=== PATIENT | female | born 1970 | race Caucasian/White ===

== ENCOUNTER 2024-03-22 10:43 | Emergency (ER) | payer OTHER, SELFPAY ==
[2024-03-22 10:43] VITALS: BMI 40.5
[2024-03-22 10:53] VITALS: BP 116/70
[2024-03-22 11:22] LABS: % Basophils 0.5 % (0-2); % Eosinophils 0.8 % (0-6); % Immature Granulocytes 1.3 % (0-0.5); % Monocytes 4.8 % (1.7-9.3); % Neutrophils 81.6 % (42.2-75.2); Absolute Eosinophils 0.1 10^3/uL (0-0.7); Absolute Immature Granulocytes 0.1 10^3/uL (0-0.05); Absolute Lymphocytes 0.7 10^3/uL (1.2-3.4); Absolute Monocytes 0.3 10^3/uL (0.1-0.6); Hematocrit 33.8 % (37.0-47.0); Hemoglobin 11.5 g/dL (12.0-16.0); Mean Corpuscular Hgb 35.5 pg (27.0-31.0); Mean Corpuscular Volume 104.3 fL (81.0-99.0); Mean Platelet Volume 8.5 fL (7.4-10.4); Nucleated Red Blood Cells % 0 %; Platelet Count 217 10^3/uL (130-400); Red Blood Cell Count 3.24 10^6/uL (4.20-5.40); Red Cell Dist. Width 13.3 % (11.5-14.5); White Blood Cell Count 6.1 10^3/uL (4.8-10.8)
[2024-03-22 11:39] LABS: HCG, Serum Qualitative Screen Negative
[2024-03-22 11:44] LABS: NT-proBNP 539 pg/ml
[2024-03-22 11:45] LABS: Blood Urea Nitrogen 15 mg/dl (7-17); Calcium 9.2 mg/dl (8.4-10.2); Carbon Dioxide 29 mmol/L (22-30); Chloride 88 mmol/L (98-107); Glucose 97 mg/dl (70-99); Sodium 126 mmol/L (135-145); eGFR > 60.00
--- NOTE | 2024-03-22 11:47 | ED.GENMED ---
History of Present Illness
General
Chief Complaint: Swelling
Source: patient
Time Seen by Provider: 03/22/24 11:40
History of Present Illness
History of Present Illness:
53yoF with a history of coronary artery disease, CHF, hypertension, COPD, obesity presenting for evaluation of shortness of breath. Patient reports bilateral leg swelling, L>R, over the past week. She also is having shortness of breath primarily
with exertion. She is also endorses orthopnea. She reports heaviness in her chest but no overt pain. She is having difficulty completing her normal activities due to her dyspnea. No cough or fevers. Patient takes 40mg Lasix daily and reports
compliance with this.
Past History
Past History
ED Past Medical History: CHF, COPD, HTN, Psychiatric and Other (Migraine headaches, obstructive sleep apnea, alcohol use, left bundle branch block)
ED Past Surgical History: Other
Social History
Tobacco: Smoker
Alcohol: Daily
Drug: None
Personal: Single
Living: with family
Employment: Employed
Family History
Family History: Other
Phy Exam
General Physical Exam
General Presentation: well appearing and no apparent distress
General age: appears stated age
General Skin: warm and dry
General Habitus: normal
General Mental: alert
ENT Exam
ENT Exam: normocephalic
Cardiovascular Exam
Cardiovascular Exam: regular rate/rhythm, no murmur and other (Non-pitting edema in bilateral lower extremities, L>R, with chronic venous stasis changes)
Pulmonary Exam
Pulmonary Exam: lungs clear, no respiratory distress, no rales, no crackles and no rhonchi
Neurological Exam
Neurological Exam: alert
[place] Coma Scale
Eye Opening: Spontaneous
Verbal Response: Oriented
Motor Response: Obeys Commands
GCS Total Score: 15
Skin Exam
Skin Exam: normal color and warm/dry
Psychiatric Exam
Psychiatric Exam: normal mood/affect
Scores
Heart Failure Risk
Heart Failure Risk Score: Not Applicable
Course
Orders/Labs/Results
Orders:
Orders
03/22/24 10:57
Electrocardiogram (*1) Urgent
Reason for Study: Shortness of Breath
EKG- Treatment ONCE
03/22/24 10:59
Test Result ONCE
03/22/24 11:08
Basic Metabolic Panel Urgent
Complete Blood Count/With Diff Urgent
HCG, Serum Qualitative Screen Urgent
NT-proBNP Urgent
03/22/24 11:46
CR Chest - 2 Views Urgent
Comment:
Reason For Exam: SOB
Venous Doppler Lwr Ext Bilat [US Periph Venous LOWER Ext Bc] Urgent
Comment:
Reason For Exam: Bilateral leg swelling, L>R
03/22/24 11:51
LFT [Pksdb-Ietf-Mpmqnmg] Urgent
Potassium Urgent
03/22/24 14:[address] Non Medication Order As Directed
Physician Order: Ambulatory pulse ox
Above order entered?: Yes
03/22/24 14:09
Furosemide [Lasix] 40 mg IV NOW STA
Abnormal Lab Results
03/22/24 03/22/24
11:08 11:51
RBC 3.24 L 10^6/uL
(4.20-5.40)
Hgb 11.5 L g/dL
(12.0-16.0)
Hct 33.8 L %
(37.0-47.0)
MCV 104.3 H fL
(81.0-99.0)
MCH 35.5 H pg
(27.0-31.0)
Abs Immat Gran (auto) 0.1 H 10^3/uL
(0-0.05)
Absolute Lymphs (auto) 0.7 L 10^3/uL
(1.2-3.4)
Immature Gran % 1.3 H %
(0-0.5)
Neutrophils % 81.6 H %
(42.2-75.2)
Lymphocytes % 11.0 L %
(20.5-51.1)
Sodium 126 L mmol/L
(135-145)
Potassium 5.5 H mmol/L
(3.5-5.1)
Chloride 88 L mmol/L
(98-107)
AST 91 H U/L
(14-36)
ALT 67 H U/L
(0-35)
03/22/24 11:08
03/22/24 11:51
Vital Signs
Initial and Last Documented VS:
Initial Vital Signs
Temp Pulse Resp BP Pulse Ox
98.2 F 103 22 116/70 100
03/22/24 10:53 03/22/24 10:53 03/22/24 10:53 03/22/24 10:53 03/22/24 10:53
Last Documented Vital Signs
Temp Pulse Resp BP Pulse Ox
98.2 F 96 16 132/78 94
03/22/24 10:53 03/22/24 14:00 03/22/24 14:00 03/22/24 14:00 03/22/24 14:47
MDM/Problems Addressed
Differential Diagnosis Includes:
53yoF here with SOB and bilateral leg swelling x 1 week. Hx of COPD and CHF. She is afebrile and hemodynamically stable. Oxygen saturation 100% on room air. She is non-toxic appearing and no distress noted. There is non-pitting edema on exam.
No rales on lung exam. Differential diagnosis includes but is not limited to: CHF exacerbation, venous stasis, DVT
Initial ED plan: Check cardiac labs, EKG, bilateral venous duplex, and chest x-ray.
*EKG
Interpreted by ED Provider?: Yes
EKG Intrepretation Date: 03/22/24
Heart Rate: 82
Rate: normal
Rhythm: sinus
[place]: normal axis
QRS Pattern: left bundle branch block
Ischemia: no ischemia
*Critical Care Note
Total Time (30-74mins, 75-104mins- exclusive of procedures): Not Applicable
Update Note
Update Note:
EKG shows NSR with a LBBB which she has a history of. Troponin WNL. BNP mildly elevated at 539. Sodium 126. She has a history of chronic hyponatremia and sodium was as low as 119 last year. Potassium 5.5, renal function WNL. No obvious pulmonary
edema on CXR per my interpretation. Venous duplex negative for DVT. Offered admission which patient declines as she has to go to work tomorrow. 40mg IV Lasix given in ED and she was advised to increase her Lasix to 60mg for the next 3 days. Stressed
the importance of close outpatient f/u with PCP and cardiology as well as repeat blood work to monitor sodium levels. Strict ED return precautions discussed. She was discharged in stable condition.
ED Attending Note
-
Portions of this chart may have been created with voice recognition software.� Occasional wrong word or��sound alike� substitutions may have occurred due to the inherent limitations of voice recognition software.
Discharge Plan
Departure
Patient Disposition: Home (Routine Discharge)
Date of Disposition: 03/22/24
Time of Disposition: 15:49
Patient with high blood pressure during this ER visit?: No
Discharge Problem:
Shortness of breath, Bilateral leg edema
Instructions: *[facility] Heart Failure Instructions
Prescriptions:
No Action
lisinopril 20 MG tablet
20 mg PO DAILY
bupropion HCl 150 MG tablet sustained-release 12 hr
150 mg PO DAILY
lorazepam [Ativan] 0.5 mg Tablet
0.5 mg PO BID
Patient Comments:
10/03/2022: last filled 08/31/22, 60 tabs for 30 days from [facility][id number]
trazodone 150 mg tablet
150 mg PO HS
furosemide 40 mg tablet
40 mg PO DAILY
ipratropium-albuterol 0.5 mg-3 mg(2.5 mg base)/3 mL solution for nebulization
3 ml inhalation TID Qty: 90 0RF
albuterol sulfate [ProAir HFA] 90 mcg/actuation HFA aerosol inhaler
2 inh inhalation Q6H PRN (Reason: shortness of breath or wheezing) Qty: 6.7 0RF
metoprolol succinate 50 mg tablet extended release 24 hr
25 mg PO DAILY
prednisone 10 mg Tablet
See Rx Instructions .ROUTE .COMPLEX Qty: 30 0RF
Rx Instructions:
Take By Mouth:
40 mg daily x3 days, 30 mg daily x3 days,
20 mg daily x3 days, 10 mg daily x3 days.
Referrals:
Kenneth Freeman MD [Family Provider] -
Stand Alone Forms: Return to Work
Activity Restrictions/Additional Instructions:
Increase your Lasix to 60mg daily for the next 3 days.
Please call your family doctor and client application support specialist on Sunday. You will need repeat blood work in 3-4 days to monitor your electrolyte levels.
Return to the ER immediately with any new or worsening symptoms.
Interventions
Interventions:
*Risk Screen - Suicide Last Done: 03/22/24 10:53
*General Assessment Last Done: 03/22/24 10:53
*Neglect/Abuse Screening Last Done: 03/22/24 10:53
ED- Fall Risk Assessment Last Done: 03/22/24 11:46
*ED COVID-19 Vaccine History Last Done: 03/22/24 11:46
*Nursing Disposition Last Done: 03/22/24 15:59
ED- Cardiac Assessment Last Done: 03/22/24 11:46
ED- Pulmonary Assessment Last Done: 03/22/24 11:46
ED-Skin Assessment Last Done: 03/22/24 11:46
Discharge Date and Time
Discharge Date/Time: 03/22/24 16:06
Print Language: PERSIAN
[2024-03-22 12:00] VITALS: BP 115/69
[2024-03-22 12:28] LABS: ALT (SGPT) 67 U/L (0-35); AST (SGOT) 91 U/L (14-36); Albumin 4.4 g/dl (3.5-5.0); Alkaline Phosphatase 97 U/L (38-126); Direct Bilirubin 0.4 mg/dl (0.0-0.4); Potassium 5.5 mmol/L (3.5-5.1); Total Bilirubin 0.8 mg/dl (0.2-1.3); Total Protein 6.8 g/dl (6.3-8.2)
[2024-03-22 14:00] VITALS: BP 132/78
[2024-03-22] MEDS: LASIX 40 MG IV (14:20)
--- NOTE | 2024-03-22 14:48 | EDRN ---
Pt with 94% ambulatory pulse ox.
== END 2024-03-22 16:06 | disposition home or self-care (01) ==
LOC: EMR 10:43
PROVIDERS: Physician Assistant; EMERGENCY PHYSICIAN Emergency Medicine; FAMILY PHYSICIAN Family Medicine
DX: I11.0 Hypertensive heart disease with heart failure (principal); I50.9 Heart failure, unspecified; R60.0 Localized edema; G47.33 Obstructive sleep apnea (adult) (pediatric); J44.9 Chronic obstructive pulmonary disease, unspecified; F17.200 Nicotine dependence, unspecified, uncomplicated; Z79.899 Other long term (current) drug therapy
CPT/HCPCS: 96374; 99285; 71046; 80048; 80076; 83880; 84132; 84703; 85025; 93005; 93970

== ENCOUNTER 2024-03-25 19:56 | Observation (INO) | payer OTHER, SELFPAY ==
[2024-03-25] VITALS (9 sets, daily range): BP systolic 92–123; BP diastolic 57–76; PULSE 101–113; BMI 39.2
--- NOTE | 2024-03-25 13:04 | ED.GENMED ---
ED Provider Triage
<ROSMERY Carroll - Last Filed: 03/25/24 13:09>
-
Patient seen by provider in Triage?: Seen in Triage
Attestation: A medical screening examination has been initiated by a qualified medical provider. Based on the assessment performed at this time, it has been determined that an emergent medical condition may exist and the patient has been informed
that further medical evaluation and possible additional diagnostic testing may be needed.
HPI: 53 yr old female presents to the ED c/o of dizziness. Pt reports she fell at work yesterday because of the dizziness. Her BP yesterday when this occurred was low at 73/ 63.Pt reports today she continues to feel dizzy when she gets up and
walks around. Pt has hx of elevated blood pressure and is on BP meds.
Denies chest pain however is SOB when walking.
Pt reports she was here several days ago for SOB/leg swelling. her meds were not changed.
GENERAL: Alert , in no apparent distress
EYE: No visual abnormalities.
NECK: Trachea midline
ENT: No visible abnormalities.
LUNGS: No acute respiratory distress
NEUROLOGICAL: Alert and oriented
SKIN: Skin intact. No visible changes.
MUSCULOSKELETAL: Moving extremities normally
PSYCH: Normal and appropriate interaction.
This is a medical evaluation conducted in person to initiate diagnostic evaluation and provide initial therapeutics. Please see further documentation by the treating clinician.
History of Present Illness
<ROSMERY Carroll - Last Filed: 03/25/24 13:09>
General
Chief Complaint: Blood Pressure Problem
Time Seen by Provider: 03/25/24 16:51
<Rosaline Castillo NP - Last Filed: 03/26/24 20:05>
General
Source: patient
Exam Limitations: none
Nursing documentation reviewed up to this point in time: agreed with
History of Present Illness
History of Present Illness:
53-year-old female with history of coronary artery disease, CHF, hypertension, COPD, obesity, anemia, states yesterday 1 p.m. at work at [employer] in [facility], developed weakness in her knees, had pain in both legs, felt faint and fell onto
carts, witnessed by coworkers who she remembers helped her up and to a chair. States her BP at that time was 60/. She went home where she lives alone and says she was able to get to the bathroom and kitchen for meals as usual. She has HAMMER which she
states is normal for her with COPD.
Seen here on 03/22 for SOB, bilateral LE swelling had US neg for DVT,
Past History
<ROSMERY Carroll - Last Filed: 03/25/24 13:09>
Past History
ED Past Medical History: CHF, COPD, HTN, Psychiatric and Other (Migraine headaches, obstructive sleep apnea, alcohol use, left bundle branch block)
ED Past Surgical History: Other
Social History
Tobacco: Smoker
Alcohol: Daily
Drug: None
Personal: Single
Living: with family
Employment: Employed
Family History
Family History: Other
Review of Systems
<Rosaline Castillo PATROL MOTHER - Last Filed: 03/26/24 20:05>
Review of Systems
Allergies reviewed?: Yes
All Other Systems: ROS reviewed and negative except as documented in HPI and ROS
Constitutional: Reports fatigue; Denies fever
Respiratory: Reports trouble breathing (chronic); Denies cough
Cardiac: Reports other (near syncope yesterday); Denies chest pain
ABD/GI: Denies abdominal pain, nausea, vomiting, diarrhea or constipated
: Denies dysuria, frequency or difficulty voiding
Musculoskeletal: Reports edema (bilateral lower legs)
Skin: Reports other (red, swollen, painful lower legs.)
Neurological: Denies headache
Phy Exam
<Rosaline Castillo PATROL MOTHER - Last Filed: 03/26/24 20:05>
Physical Exam
Physical Exam:
GENERAL: No acute distress. A&Ox3.
CONSTITUTIONAL: Afebrile.
EYES: clear, conjunctivae normal
ENMT: moist mucus membranes, Pharynx nl
RESPIRATORY: Regular respirations, nonlabored, lungs clear.
CARDIOVASCULAR: Regular rate and rhythm, no murmurs, no rubs.
GI: Obese, Soft, nontender, normal BS
Rectal: stool light brown, heme neg
MUSCULOSKELETAL: Moves with ease. Well perfused.
SKIN: Warm, dry, pink. Bilateral lower legs reddened, warm, swollen, tender
PSYCH: Normal mood and affect. Well kept, interactive and appropriate
NEUROLOGIC: Awake, alert and oriented. No focal neurological deficits
Course
<ROMSERY Carroll - Last Filed: 03/25/24 13:09>
Orders/Labs/Results
Orders:
Orders
03/25/24 Breakfast
Regular
At Your Request: Full Participation
Fluid Restriction: 1200 mL/day (40 oz)
03/25/24 13:09
Electrocardiogram (*1) Stat
Reason for Study: Other
Other Reason for Exam: chest pain
EKG- Treatment ONCE
03/25/24 13:20
Complete Blood Count/With Diff Urgent
Comprehensive Metabolic Panel Urgent
Glycohemoglobin (HgbA1c) Urgent
NT-proBNP Urgent
Comment: ADD ON
03/25/24 17:41
Orthostatic VS- Treatment ONCE
03/25/24 17:54
Add On- LAB Urgent
Tests Added?: BNP
03/25/24 18:34
Piperacillin/Tazo 3.375 Gram [Zosyn] 3.375 gram in 50 ml IV NOW
03/25/24 18:51
0.9% Sodium Chloride 500 ml [Nss] 500 ml IV BOLUS
03/25/24 19:40
Admit/Transfer Patient As Directed
Co-Sign Provider:
Level of Care: Observation services
Assign to:: Telemetry
Physician / Group: Juvenal
Diagnosis: Cardiomyopathy, Venous Insufficiency / LE Pain
Reason for Telemetry: Subacute Heart Failure
Date to Stop Telemetry: 03/27/24
Time to Stop Telemetry: 11:00
Reason for Hospitalization: Cardiomyopathy, Venous Insufficiency / LE Pain
PRN Pain Medication Management As Directed
May give lesser potent ordered pain med per pt: Yes
preference::
Protocol:: Medication orders for pain may be administered in a
manner that supports deferring to patient preference
when the pt is:
- Requesting an ordered lesser potent pain medication.
Least to most potent pain medications are defined
as: acetaminophen < NSAID < tramadol < opioids
(morphine, oxycodone, hydromorphone).
- Requesting a lesser dose of the same medication IF
ORDERED.
- Requesting a less intrusive route of administration
if both routes are prescribed by the provider (PO <
IV).
03/25/24 19:42
Code Status As Directed
Resuscitation Status: Full Code
03/25/24 20:25
Lorazepam [Ativan] 0.5 mg PO BIDPRN PRN
03/25/24 21:09
Acetaminophen [Tylenol] 650 mg PO Q4HPRN PRN
Albuterol Nebs [Ventolin Nebules] 2.5 mg INH R Q4HPRN PRN
03/25/24 21:09
Activity As Directed
Activity Level: Ambulate
With Assistance
Bladder Scan As Directed
Follow Bladder Retention/Intermittent Cath Algorithm?: Yes
PRN if no void in __ hours: 6
Frequency: Per Retention Algorithm
If Bladder Scan Result >: 400
then:: Straight cath
I/O [Intake/ Output] As Directed
Frequency: Per unit guidelines
Straight Cath As Directed
Frequency: Per Retention Algorithm
Additional Instructions: straight cath as needed per acute urinary retention algorithm for 24 hrs
Additional Instructions: for bladder scan greater than 400 mL
Vital Signs As Directed
Frequency: Per unit guidelines
Weight As Directed
Frequency: Daily
Oxygen Therapy [O2 Therapy] [RESP] Routine
Titrate/Wean O2 to maintain O2 sat greater than (%): 94
Ot Eval And Treat Routine
PT Consult [Pt Eval And Treat] Routine
Activity Level: Ambulate
With Assistance
DX Deep Vein Thrombosis Video Routine
03/25/24 22:00
ARIPiprazole [Abilify] 5 mg PO HS
Gabapentin [Neurontin] 100 mg PO TID
Trazodone [Desyrel] 150 mg PO HS
03/25/24 22:59
B12 [Vitamin B12] Routine
Iron Routine
TSH Reflex To Free T4 Routine
Total Iron Binding Routine
Troponin I Q6H
03/26/24 03:12
Troponin I Q6H
03/26/24 06:00
EKG [Electrocardiogram (*1)] IN AM
Reason for Study: Chest Pain
03/26/24 08:00
Bupropion(12Hr)Sustain Release [WELLBUTRIN SR (12 hour sustained release)] 150 mg PO DAILY
Metoprolol Xl [Toprol Xl] 25 mg PO DAILY
03/26/24 12:37
Basic Metabolic Panel IN AM
Cardiovascular Evaluation IN AM
Troponin I Q6H
03/26/24 18:00
Enoxaparin Sodium [Lovenox] 40 mg SC QPM
03/27/24 11:00
DC Protocol for Telemetry ONCE
Abnormal Lab Results
03/25/24
13:20
RBC 2.89 L 10^6/uL
(4.20-5.40)
Hgb 10.3 L g/dL
(12.0-16.0)
Hct 30.1 L %
(37.0-47.0)
MCV 104.2 H fL
(81.0-99.0)
MCH 35.6 H pg
(27.0-31.0)
Abs Immat Gran (auto) 0.1 H 10^3/uL
(0-0.05)
Absolute Lymphs (auto) 1.1 L 10^3/uL
(1.2-3.4)
Immature Gran % 1.3 H %
(0-0.5)
Lymphocytes % 18.1 L %
(20.5-51.1)
Sodium 128 L mmol/L
(135-145)
Potassium 5.2 H mmol/L
(3.5-5.1)
Chloride 91 L mmol/L
(98-107)
BUN 20 H mg/dl
(7-17)
Glucose 100 H mg/dl
(70-99)
AST 84 H U/L
(14-36)
ALT 70 H U/L
(0-35)
03/25/24 13:20
03/25/24 13:20
Vital Signs
Initial and Last Documented VS:
Initial Vital Signs
Temp Pulse Resp BP Pulse Ox
98.6 F 85 18 100/66 99
03/25/24 13:05 03/25/24 13:05 03/25/24 13:05 03/25/24 13:05 03/25/24 13:05
Last Documented Vital Signs
Temp Pulse Resp BP Pulse Ox
98.6 F 84 18 93/58 96
03/26/24 19:40 03/26/24 19:40 03/26/24 19:40 03/26/24 19:40 03/26/24 19:40
<Rosaline Castillo NP - Last Filed: 03/26/24 20:05>
Orders/Labs/Results
Orders:
Orders
03/25/24 Breakfast
Regular
At Your Request: Full Participation
Fluid Restriction: 1200 mL/day (40 oz)
03/25/24 13:09
Electrocardiogram (*1) Stat
Reason for Study: Other
Other Reason for Exam: chest pain
EKG- Treatment ONCE
03/25/24 13:20
Complete Blood Count/With Diff Urgent
Comprehensive Metabolic Panel Urgent
Glycohemoglobin (HgbA1c) Urgent
NT-proBNP Urgent
Comment: ADD ON
03/25/24 17:41
Orthostatic VS- Treatment ONCE
03/25/24 17:54
Add On- LAB Urgent
Tests Added?: BNP
03/25/24 18:34
Piperacillin/Tazo 3.375 Gram [Zosyn] 3.375 gram in 50 ml IV NOW
03/25/24 18:51
0.9% Sodium Chloride 500 ml [Nss] 500 ml IV BOLUS
03/25/24 19:40
Admit/Transfer Patient As Directed
Co-Sign Provider:
Level of Care: Observation services
Assign to:: Telemetry
Physician / Group: Juvenal
Diagnosis: Cardiomyopathy, Venous Insufficiency / LE Pain
Reason for Telemetry: Subacute Heart Failure
Date to Stop Telemetry: 03/27/24
Time to Stop Telemetry: 11:00
Reason for Hospitalization: Cardiomyopathy, Venous Insufficiency / LE Pain
PRN Pain Medication Management As Directed
May give lesser potent ordered pain med per pt: Yes
preference::
Protocol:: Medication orders for pain may be administered in a
manner that supports deferring to patient preference
when the pt is:
- Requesting an ordered lesser potent pain medication.
Least to most potent pain medications are defined
as: acetaminophen < NSAID < tramadol < opioids
(morphine, oxycodone, hydromorphone).
- Requesting a lesser dose of the same medication IF
ORDERED.
- Requesting a less intrusive route of administration
if both routes are prescribed by the provider (PO <
IV).
03/25/24 19:42
Code Status As Directed
Resuscitation Status: Full Code
03/25/24 20:25
Lorazepam [Ativan] 0.5 mg PO BIDPRN PRN
03/25/24 21:09
Acetaminophen [Tylenol] 650 mg PO Q4HPRN PRN
Albuterol Nebs [Ventolin Nebules] 2.5 mg INH R Q4HPRN PRN
03/25/24 21:09
Activity As Directed
Activity Level: Ambulate
With Assistance
Bladder Scan As Directed
Follow Bladder Retention/Intermittent Cath Algorithm?: Yes
PRN if no void in __ hours: 6
Frequency: Per Retention Algorithm
If Bladder Scan Result >: 400
then:: Straight cath
I/O [Intake/ Output] As Directed
Frequency: Per unit guidelines
Straight Cath As Directed
Frequency: Per Retention Algorithm
Additional Instructions: straight cath as needed per acute urinary retention algorithm for 24 hrs
Additional Instructions: for bladder scan greater than 400 mL
Vital Signs As Directed
Frequency: Per unit guidelines
Weight As Directed
Frequency: Daily
Oxygen Therapy [O2 Therapy] [RESP] Routine
Titrate/Wean O2 to maintain O2 sat greater than (%): 94
Ot Eval And Treat Routine
PT Consult [Pt Eval And Treat] Routine
Activity Level: Ambulate
With Assistance
DX Deep Vein Thrombosis Video Routine
03/25/24 22:00
ARIPiprazole [Abilify] 5 mg PO HS
Gabapentin [Neurontin] 100 mg PO TID
Trazodone [Desyrel] 150 mg PO HS
03/25/24 22:59
B12 [Vitamin B12] Routine
Iron Routine
TSH Reflex To Free T4 Routine
Total Iron Binding Routine
Troponin I Q6H
03/26/24 03:12
Troponin I Q6H
03/26/24 06:00
EKG [Electrocardiogram (*1)] IN AM
Reason for Study: Chest Pain
03/26/24 08:00
Bupropion(12Hr)Sustain Release [WELLBUTRIN SR (12 hour sustained release)] 150 mg PO DAILY
Metoprolol Xl [Toprol Xl] 25 mg PO DAILY
03/26/24 12:37
Basic Metabolic Panel IN AM
Cardiovascular Evaluation IN AM
Troponin I Q6H
03/26/24 18:00
Enoxaparin Sodium [Lovenox] 40 mg SC QPM
03/27/24 11:00
DC Protocol for Telemetry ONCE
Abnormal Lab Results
03/25/24
13:20
RBC 2.89 L 10^6/uL
(4.20-5.40)
Hgb 10.3 L g/dL
(12.0-16.0)
Hct 30.1 L %
(37.0-47.0)
MCV 104.2 H fL
(81.0-99.0)
MCH 35.6 H pg
(27.0-31.0)
Abs Immat Gran (auto) 0.1 H 10^3/uL
(0-0.05)
Absolute Lymphs (auto) 1.1 L 10^3/uL
(1.2-3.4)
Immature Gran % 1.3 H %
(0-0.5)
Lymphocytes % 18.1 L %
(20.5-51.1)
Sodium 128 L mmol/L
(135-145)
Potassium 5.2 H mmol/L
(3.5-5.1)
Chloride 91 L mmol/L
(98-107)
BUN 20 H mg/dl
(7-17)
Glucose 100 H mg/dl
(70-99)
AST 84 H U/L
(14-36)
ALT 70 H U/L
(0-35)
03/25/24 13:20
03/25/24 13:20
Vital Signs
Initial and Last Documented VS:
Initial Vital Signs
Temp Pulse Resp BP Pulse Ox
98.6 F 85 18 100/66 99
03/25/24 13:05 03/25/24 13:05 03/25/24 13:05 03/25/24 13:05 03/25/24 13:05
Last Documented Vital Signs
Temp Pulse Resp BP Pulse Ox
98.6 F 84 18 93/58 96
03/26/24 19:40 03/26/24 19:40 03/26/24 19:40 03/26/24 19:40 03/26/24 19:40
<Rosaline Castillo PATROL MOTHER - Last Filed: 03/26/24 20:05>
MDM/Problems Addressed
MDM/Problems Addressed:
53-year-old female with history of coronary artery disease, CHF, hypertension, COPD, obesity, anemia, states yesterday 1 p.m. at work at [employer] in [facility], developed weakness in her knees, had pain in both legs, felt faint and fell onto
carts, witnessed by coworkers who she remembers helped her up and to a chair. States her BP at that time was 60/. She went home where she lives alone and says she was able to get to the bathroom and kitchen for meals as usual. She has HAMMER which she
states is normal for her with COPD.
Seen here on 03/22 for SOB, bilateral LE swelling had US neg for DVT,
Afebrile, NAD
EKG NSR, no change from previous
CBC consistent with her baseline anemia, hemoglobin 10.3, rectal exam stool hematest negative
CMP: Consistent with her chronic hyponatremia, no clinically significant abnormality
BNP:
53-year-old female with COPD, presents looking moderately unwell, near syncopal episode yesterday with hypotension, stating bilateral lower extremity redness and swelling and pain are worsening, positive orthostasis
Plan: Admit: Bilateral LE cellulitis, near syncope
IV antibiotics, IVFs
<Rosaline Castillo NP - Last Filed: 03/26/24 20:05>
*EKG
EKG Intrepretation Date: 03/25/24
Interpretation: abnormal
Comparison EKG: no changes
Heart Rate: 90
Rate: normal
Rhythm: sinus
[place]: normal axis
Interval: normal interval
QRS Pattern: left bundle branch block
Ischemia: no ischemia
*Critical Care Note
Total Time (30-74mins, 75-104mins- exclusive of procedures): Not Applicable
ED Attending Note
<ROSMERY Carroll - Last Filed: 03/25/24 13:09>
-
Portions of this chart may have been created with voice recognition software.� Occasional wrong word or��sound alike� substitutions may have occurred due to the inherent limitations of voice recognition software.
Discharge Plan
Departure
Patient Disposition: Admit
Date of Disposition: 03/25/24
Time of Disposition: 18:44
Admit to: Med/Surg
Presentation/result/management discussed w/ accepting MD/DO: Hospitalist
Condition: Fair
Discharge Problem:
Near syncope, Bilateral lower leg cellulitis
Interventions
Interventions:
*Risk Screen - Suicide Last Done: 03/25/24 21:22
*General Assessment Last Done: 03/25/24 13:05
*Neglect/Abuse Screening Last Done: 03/25/24 13:05
ED- Fall Risk Assessment Last Done: 03/25/24 18:51
*ED COVID-19 Vaccine History Last Done: 03/25/24 21:22
*Nursing Disposition Last Done: 03/25/24 21:10
ED- Cardiac Assessment Last Done: 03/25/24 18:51
ED- Neurological Assessment Last Done: 03/25/24 18:51
ED- Pulmonary Assessment Last Done: 03/25/24 18:51
Discharge Date and Time
Discharge Date/Time: 03/25/24 21:11
[2024-03-25 13:32] LABS: % Basophils 0.6 % (0-2); % Eosinophils 1.1 % (0-6); % Immature Granulocytes 1.3 % (0-0.5); % Lymphocytes 18.1 % (20.5-51.1); % Monocytes 5.7 % (1.7-9.3); % Neutrophils 73.2 % (42.2-75.2); Absolute Eosinophils 0.1 10^3/uL (0-0.7); Absolute Immature Granulocytes 0.1 10^3/uL (0-0.05); Absolute Lymphocytes 1.1 10^3/uL (1.2-3.4); Absolute Monocytes 0.4 10^3/uL (0.1-0.6); Absolute Neutrophils 4.5 10^3/uL (1.4-6.5); Hematocrit 30.1 % (37.0-47.0); Hemoglobin 10.3 g/dL (12.0-16.0); Mean Corp Hgb Conc. 34.2 g/dL (33.0-37.0); Mean Corpuscular Hgb 35.6 pg (27.0-31.0); Mean Corpuscular Volume 104.2 fL (81.0-99.0); Mean Platelet Volume 8.9 fL (7.4-10.4); Nucleated Red Blood Cells % 0 %; Platelet Count 189 10^3/uL (130-400); Red Blood Cell Count 2.89 10^6/uL (4.20-5.40); Red Cell Dist. Width 13.9 % (11.5-14.5); White Blood Cell Count 6.2 10^3/uL (4.8-10.8)
[2024-03-25 13:49] LABS: ALT (SGPT) 70 U/L (0-35); AST (SGOT) 84 U/L (14-36); Albumin 4.5 g/dl (3.5-5.0); Alkaline Phosphatase 80 U/L (38-126); Blood Urea Nitrogen 20 mg/dl (7-17); Calcium 9.3 mg/dl (8.4-10.2); Carbon Dioxide 27 mmol/L (22-30); Chloride 91 mmol/L (98-107); Glucose 100 mg/dl (70-99); Potassium 5.2 mmol/L (3.5-5.1); Sodium 128 mmol/L (135-145); Total Bilirubin 0.4 mg/dl (0.2-1.3); Total Protein 6.9 g/dl (6.3-8.2); eGFR > 60.00
[2024-03-25 18:45] LABS: NT-proBNP 292 pg/ml
[2024-03-25] MEDS: ZOSYN 50 IV (19:00)
[2024-03-25] MEDS: NSS 500 IV (19:01)
--- NOTE | 2024-03-25 19:47 | HPS.HSE ---
Family Physician
-
Family Physician: * NONE
Chief Complaint
-
HAMMER, LE Pain and Redness
History of Present Illness
Patient is a 53y F with PMH significant for hypertension, HFrecEF and Bipolar disorder who presents to ED complaining of bilateral LE pain, redness, weakness and restlessness. Patient states that these symptoms have been ongoing for about a year
or so. She describes restless feeling in the legs when lying / sleeping or sitting still. She denies any injury or trauma. She denies any fevers or chills.
Patient states that she has been feeling weak and short of breath with any degree of activity. She is on diuretics at home, but does not follow her weight.
Yesterday at work, patient states she became lightheaded and fell. She is not sure whether or not sure briefly lost consciousness. She does not believe that she struck her head. She denies any significant pain / injury following the fall.
Her BP was checked after the fall and patient notes that it was 'low'.
Patient was seen here in the ED on 03/22 for her complaints of leg pain and heaviness. She received IV Lasix dose during that admission and was advised to increase her home Lasix to 60mg x 3 days - which she has done.
Patient denies any recent symptoms of fevers / chills, cough, N/V/D or urinary complaints.
Medical History
Past Medical History
Past Medical History: Reports Other
Additional Past Medical History:
Hypertension
Cardiomyopathy (Last Echo October 2021 with recovered EF 55-60%)
COPD
Bipolar Depression
Migraine Headaches
Past Surgical History: Reports None
Social History
Tobacco: Former Smoker (Quit smoking 2 1/2 years ago. Approx 20 pack years total use.)
Alcohol: Occasional
Drug: None
Family History
Family History: Other (Father: COPD Mother: DM-II)
Allergies / Home Medications
Allergies reflects when Allergies were last updated in [facility].
Home Medications with original date entered in [facility]
Allergy/Medication List:
Allergies
Allergy/AdvReac Type Severity Reaction Status Date / Time
No Known Allergies Allergy Verified 03/25/24 13:08
Home Medications
bupropion HCl 150 mg tablet,12 hr sustained-release 150 mg PO DAILY Depression 07/09/21
lisinopril 20 mg tablet 20 mg PO DAILY Blood pressure 07/09/21
lorazepam 0.5 mg tablet (Ativan) 0.5 mg PO BID Mental Health/Anxiety 10/29/21
trazodone 150 mg tablet 150 mg PO HS Sleep 10/03/22
furosemide 40 mg tablet 40 mg PO DAILY Fluid Retention/Swelling 10/04/22
albuterol sulfate 90 mcg/actuation aerosol inhaler 2 puff inhalation R Q6HPRN PRN sob 03/25/24
aripiprazole 5 mg tablet 5 mg PO HS 03/25/24
metoprolol succinate 25 mg tablet,extended release 24 hr 25 mg PO DAILY 03/25/24
sumatriptan succinate 6 mg/0.5 mL subcutaneous solution 6 mg SC DAILYPRN PRN migraine 03/25/24
Review of Systems
-
History Source: Patient
A 12 point ROS was completed and negative except as noted: Yes
Constitutional: Reports Fatigue; Denies Fever or Chills
EENT: Denies Sore Throat
Respiratory: Reports Trouble Breathing; Denies Cough
Cardiac: Reports Chest Pain and Syncope; Denies Diaphoresis or Palpitations
Abdomen/GI: Denies Abdominal Pain, Nausea, Vomiting or Diarrhea
: Denies Dysuria or Frequency
Musculoskeletal: Reports Edema; Denies Joint Pain
Skin: Reports Other (LE redness and pain.)
Neurological: Reports Dizzy; Denies Headache
Psych: Denies Depression or Anxiety
Physical Exam
Vital Signs
Vital Signs
Temp Pulse Resp BP Pulse Ox
97.8 F 112 19 115/76 94
03/25/24 14:27 03/25/24 19:15 03/25/24 19:15 03/25/24 19:00 03/25/24 18:45
Physical Exam
General: Other (53y F in no acute distress.)
HEENT: Moist mucous membranes, PERRLA and Other (Thick neck. No appreciable JVD / HJR.)
Respiratory: Other (Decreased at bases - otherwise clear.)
Cardiac: S1/S2 and Regular Rhythm; No Murmur
GI: Soft, Non Tender, Non Distended and Normal Bowel Sounds
Musculoskeletal: No Clubbing and Other (Trace - 1+ LE edema. Blanching erythema b/l lower legs without increased warmth. Chronic skin changes / induration.)
Neuro: AO x 3
Laboratory Results
-
03/25/24 13:20
03/25/24 13:20
Laboratory Results
Total Bilirubin 0.4 mg/dl (0.2-1.3) 03/25/24 13:20
AST 84 U/L (14-36) H 03/25/24 13:20
ALT 70 U/L (0-35) H 03/25/24 13:20
Alkaline Phosphatase 80 U/L (38-126) 03/25/24 13:20
Impression/Plan
-
A/P: Patient is a 53y F with PMH significant for hypertension, cardiomyopathy and COPD who presents to ED for evaluation after fall / syncope yesterday and chronic LE pain.
Syncope / Fall
- Observe overnight for further evaluation and treatment.
- Monitor on telemetry overnight for any evidence of arrhythmia.
- ? hypovolemia / orthostasis due to increased diuretic over the past few days?
- Monitor for any recurrent symptoms.
- PT / OT evals.
LE Pain / Redness
- Exam and history are not consistent with cellulitis / infection.
- Observe off of further abx.
- Doppler negative for DVT during prior ED visit.
- Check LE TOMMY / arterial dopplers.
- Begin gabapentin for pain control / symptom relief.
Cardiomyopathy
HAMMER
- Patient describes months of HAMMER as well as leg cramping / pain / etc.
- Check updated Echo for changes.
- Hold further diuresis acutely given low BP, hyperkalemia, etc.
- Adjust treatment based on Echo findings.
Chronic Hyponatremia
Hyperkalemia
- IVFs given in the ED (500cc). Hold diuretics acutely as noted above.
- Hold NATHAN inhibitor pending improvement in hyperkalemia.
- Follow labs / lytes for improvement.
- Na level is at her typical baseline.
- Fluid restriction.
COPD
- No active wheezing, cough, etc.
- Albuterol PRN.
- Oxygen supplementation as needed.
Macrocytic Anemia
- Hgb = 10.3 compared to prior baseline of 11 - 12.
- Check iron studies, B12, etc.
- No evidence of active blood loss.
- Follow H&H for any changes.
Bipolar Depression
Migraine Headaches
- Stable. Continue current psychotropic regimen.
DVT Prophylaxis: Lovenox
Code Status: Full
[2024-03-25] MEDS: ATIVAN 0.5 MG PO (20:56)
[2024-03-25] MEDS: ABILIFY 5 MG PO (22:05)
[2024-03-25] MEDS: DESYREL 150 MG PO (22:05)
[2024-03-25] MEDS: NEURONTIN 100 MG PO (22:05)
[2024-03-25 23:30] LABS: Troponin I < 0.012 ng/ml
[2024-03-25 23:48] LABS: Iron 130 ug/dl (37-170)
[2024-03-25 23:57] LABS: Percent Saturation 47 % (20-50); Total Iron Binding Capacity 276 ug/dl (265-497)
[2024-03-26] VITALS (8 sets, daily range): BP systolic 93–155; BP diastolic 50–89; PULSE 99–110; BMI 39.2
--- NOTE | 2024-03-26 01:37 | PTCARENOTE ---
Received pt from ED @ 2119. Pt AAOx3, drowsy. Standby assist to ambulate in room. Oriented to room, call reddy and plan of care.
[2024-03-26 03:19] LABS: TSH Reflex To Free T4 5.71 uIU/ml (0.47-4.68)
[2024-03-26 03:38] LABS: Vitamin B12 329 pg/ml (239-931)
[2024-03-26 03:47] LABS: Free T4 1.11 ng/dl (0.78-2.19)
[2024-03-26 04:09] LABS: Troponin I < 0.012 ng/ml
[2024-03-26] MEDS: TOPROL XL 25 MG PO (07:50)
[2024-03-26] MEDS: NEURONTIN 100 MG PO ×3 (07:50→22:41)
[2024-03-26] MEDS: WELLBUTRIN SR (12 hour sustained release) 150 MG PO (07:51)
[2024-03-26] MEDS: ATIVAN 0.5 MG PO ×2 (07:54→20:27)
[2024-03-26 08:49] LABS: Glycohemoglobin (HgbA1c) 5.1 % (4.0-5.6)
--- NOTE | 2024-03-26 10:15 | CARDSERVLU ---
Echocardiogram with Lumason completed after protocol screening completed. Allergies verified.
Patent IV site: _R hand____
IV site flushed with 0.9% NaCl pre and post administration.
Diluted bolus method utilized to enhance visualization of ventricular rivera.
Total volume given: __3.5__ mL
Patient tolerated all procedures well without complications.
--- NOTE | 2024-03-26 11:48 | CM ---
Addendum entered by Leonel Min 03/26/24 11:54:
Pt currently admitted in OBS status. OOBS form reviewed, pt given copy. Copy placed in chart
Original Note:
Pt seen bedside. Initial assessment completed.
Pt lives alone in a single story home- no steps
Pt is independent, denies DME use for ambulating or daily functioning
Denies SNF/PT/OT
Address, point of contact and insurance verified
PCP: Pt states she does not know if she has a PCP at this time
Pharmacy: [facility]
Per PT/OT, no skilled needs identified
Plan: Anticipate home w/ no needs
CM will cont to follow hospital course
--- NOTE | 2024-03-26 12:46 | CON.CAR ---
Addendum entered and electronically signed by Nik Rudd MD 03/26/24 15:31:
I saw and examined the patient.
The JUVENILE OFFICER or PA's note was reviewed and I agree with the note.
Comment: General: Well developed, well nourished in NAD.
Neck: Supple, no JVD, HJR, carotids +2 B/L, no bruits bilaterally.
Heart: Non displaced PMI, RRR, no murmurs, No S3, S4, no rubs.
Lungs: Clear to auscultation bilaterally, no wheeze, rhonchi, rubs bilaterally,
normal expiratory phase.
Abdomen: Normal bowel sounds, soft, non-tender, non-distended.
Extremities: No clubbing, cyanosis or edema bilaterally.
Neuro: Grossly nonfocal, awake, alert and oriented x3.
Priti has a history of recovered nonischemic cardiomyopathy, left bundle branch block, hypertension, COPD, anxiety/depression, bipolar disorder. She presented after a fall at work. Reportedly at the scene she was very pale and blood pressure was
60 or 70 systolic. She denied any chest pain or short of breath or palpitations.
Echo with normal ejection fraction. Suspect episode of syncope was vasovagal. Could consider monitoring on discharge. No other further cardiac workup indicated as an inpatient.
Original Note:
Consultation
Consultation Request
Date/Time Consultation Performed: 03/26/24
Requesting Provider: Dr. Sanford
Performing Provider: Chasity Graf PA-C for Dr. Rudd
Reason for Consultation: hypotension, possible syncope
Medical History
-
Chief Complaint: fall, possible syncope
History of Present Illness:
Patient is a 53-year-old female with past medical history of chronic left bundle branch block, recovered nonischemic cardiomyopathy, hypertension, COPD, anxiety/depression who presented to [facility] after a fall while at work yesterday.
She is unsure whether she had lost consciousness with the event. She also reports bilateral lower extremity pain and swelling as well as shortness of breath with activity. She reports feeling as though she can barely walk and her legs are very
stiff. she also reports weight gain and bloating. She was seen in the ER 03/22 due to similar complaints and received dose of IV Lasix and her home Lasix dose was increased from 40 mg daily to 60 mg daily x 3 days which she did, but only for 1 day
thus far. With the fall yesterday reportedly her blood pressure was low. She denies chest pain or palpitations. Denies recent changes to diet, however does report likely excess salt intake. Cardiology consulted for evaluation. proBNP 292. Chest
x-ray without acute cardiopulmonary process. With hyponatremia and hyperkalemia on arrival, improving.
PMH:
Recovered nonischemic cardiomyopathy
Chronic left bundle branch block
Hypertension
COPD
Anxiety/depression
History of migraines
History of alcohol abuse
Former smoker
Past Medical History
Past Medical History: Other (in HPI)
Social History
Tobacco: Former Smoker
Alcohol: Occasional
Family History
Family History: Reviewed & Not Pertinent
Allergies / Home Medications
Allergy/AdvReac Type Severity Reaction Status Date / Time
No Known Allergies Allergy Verified 03/25/24 13:08
�Medication �Instructions �Recorded �Confirmed �Type
bupropion HCl 150 mg tablet,12 hr 150 mg PO DAILY Depression 07/09/21 03/25/24 History
sustained-release
lisinopril 20 mg tablet 20 mg PO DAILY Blood pressure 07/09/21 03/25/24 History
lorazepam 0.5 mg tablet (Ativan) 0.5 mg PO BID Mental Health/Anxiety 10/29/21 03/25/24 History
trazodone 150 mg tablet 150 mg PO HS Sleep 10/03/22 03/25/24 History
furosemide 40 mg tablet 40 mg PO DAILY Fluid 10/04/22 03/25/24 History
Retention/Swelling
albuterol sulfate 90 mcg/actuation 2 puff inhalation R Q6HPRN PRN sob 03/25/24 03/25/24 History
aerosol inhaler
aripiprazole 5 mg tablet 5 mg PO HS Mental Health/Anxiety 03/25/24 03/25/24 History
metoprolol succinate 25 mg 25 mg PO DAILY Heart 03/25/24 03/25/24 History
tablet,extended release 24 hr Disease/Condition
sumatriptan succinate 6 mg/0.5 mL 6 mg SC DAILYPRN PRN migraine 03/25/24 03/25/24 History
subcutaneous solution
Review of Systems
-
History Source: Patient
All other systems: Negative unless noted
Physical Exam
Vital Signs
Temp Pulse Resp BP Pulse Ox
97.6 F 92 22 106/57 98
03/26/24 11:46 03/26/24 11:46 03/26/24 11:46 03/26/24 11:46 03/26/24 11:46
Lab Results
Troponin I < 0.012 ng/ml 03/26/24 03:12
[id number] Pept 292 pg/ml 03/25/24 13:20
Physical Exam
General: No Apparent Distress, Comfortable and Other (obese. sitting in chair)
HEENT: Normocephalic, Anicteric and Moist Mucous Membranes
Respiratory: Clear and Non Labored Respirations
Cardiac: S1/S2 and Regular Rhythm
GI: Soft, Non Tender, Non Distended and Normal Bowel Sounds
Musculoskeletal: No Clubbing, No Cyanosis and Edema (3+ of B/L LE with some erythema)
Skin: Warm and Dry
Neuro: AO x 3
Impression / Plan
-
Primary Clinical Marketing Manager: Dr. Dumont
Assessment:
Presentation with fall, possible syncope
LE edema B/L
Acute on chronic hyponatremia
Hyperkalemia
Anemia
Recovered nonischemic cardiomyopathy, previously 40-45% in 2020, now 50-55%
Chronic left bundle branch block
Hypertension
COPD
Anxiety/depression
History of migraines
History of alcohol abuse
Former smoker
ECHO 03/26/2024: Technically difficult study, Definity used, EF 50 to 55%, mild concentric LVH, paradoxical septal motion consistent with left bundle branch block, mild MAC, mild MR, no significant change compared to prior
Plan:
-Patient presented with a fall and possible syncope
-Noted to have electrolyte abnormalities including acute on chronic hyponatremia, hyperkalemia on arrival, improving. holding OP lisinopril and lasix at present
-On exam appears to have evidence of volume overload. proBNP 292 which may be underestimated due to obesity. Chest x-ray without acute abnormalities noted.
-Did have peripheral vascular ultrasound negative for DVT. Also had lower extremity arterial study without evidence of arterial insufficiency, ABIs within normal limits
-Add compression stockings
-follow ortho VS
-echo 03/26 with preserved EF, stable compared to prior
-Could consider for right heart cath to assess volume status as clinical story consistent with possible dehydration however on examination with evidence of volume overload
Data Reviewed
-
EKG: Tracing Personally Visualized and interpreted
Radiology: Report Reviewed by me
Medical Tests (Nuc Med, Echo etc): Report Reviewed by me
Labs: Labs Reviewed by me
Old Records: Reviewed
--- NOTE | 2024-03-26 12:53 | W.PN.HOSP.TC ---
Addendum entered and electronically signed by Skip Cornejo MD 03/27/24 15:47:
ongoing weight gain, ?possibly something more insidious ongoing, ruqus converted to abd us full
Original Note:
Today's Communication/Plan
-
Assessment / Plan
Assessment / Plan
Syncope / Fall
- Tele monitor
- 2d echo
- Cards consult
- Orthostatics
LE Pain / Redness
-Chronic changes
-Strange/rare to have b/l LE cellulitis, no white count and afebrile
-No indication for atb at is time
Cardiomyopathy
HAMMER
-2d echo
-lasix
-cards
Chronic Hyponatremia
Hyperkalemia - resolved, hold acei/arb indef
- IVFs given in the ED (500cc). Hold diuretics acutely as noted above.
- Follow labs / lytes for improvement.
- Na level is at her typical baseline.
- Fluid restriction.
COPD
- No active wheezing, cough, etc.
- Albuterol PRN.
- Oxygen supplementation as needed.
Macrocytic Anemia
- Outpt pcp follow up
- age appropriate cancer screenign
Bipolar Depression
Migraine Headaches
- Stable. Continue current psychotropic regimen.
Anticipated Discharge: 24 - 48 hours
Subjective/Interval History
-
Date of Service: March 26, 2024
no new complaints
no acute overnight events
Objective Data
-
Labs:
Laboratory Results
03/26/24
12:37
Sodium Pending
Potassium Pending
Chloride Pending
Carbon Dioxide Pending
BUN Pending
Creatinine Pending
Glucose Pending
Calcium Pending
Vital Signs:
Vital Signs
Temp Pulse Resp BP Pulse Ox
97.6 F 92 22 106/57 98
03/26/24 11:46 03/26/24 11:46 03/26/24 11:46 03/26/24 11:46 03/26/24 11:46
I&O
03/25/24 03/26/24 03/27/24
06:59 06:59 06:59
Intake Total 240 / 240
Balance 240 / 240
Physical Exam
-
General: Well Developed and Well Nourished
HEENT: Normocephalic and Atraumatic
Respiratory: Clear to Auscultation
Cardiac: Regular Rhythm and S1/S2
GI: Soft, Nontender, Nondistended and Normal Bowel Sounds
Musculoskeletal: No Clubbing and No Cyanosis
Skin: Other (chronic bilateral changes, no warmth)
Neuro: Awake, Alert, Oriented and AO x 3
Psych: Calm
[2024-03-26 12:59] LABS: Blood Urea Nitrogen 25 mg/dl (7-17); Calcium 9.2 mg/dl (8.4-10.2); Carbon Dioxide 29 mmol/L (22-30); Chloride 93 mmol/L (98-107); Estimated Creatinine Clearance 76 ml/min; Glucose 116 mg/dl (70-99); Potassium 4.8 mmol/L (3.5-5.1); Sodium 129 mmol/L (135-145); Total Cholesterol 166 mg/dl (50-199); Triglyceride 60 mg/dl (10-149); Very Low Density Lipoprotein 12 mg/dl (0-30); eGFR 59.71
[2024-03-26 13:09] LABS: HDL Cholesterol 122 mg/dl; LDL Cholesterol, Calculated 32 mg/dl
[2024-03-26 13:11] LABS: Troponin I < 0.012 ng/ml
[2024-03-26] MEDS: LOVENOX 40 MG SC (16:48)
[2024-03-26 20:29] LABS: Hematocrit 29.9 % (37.0-47.0); Hemoglobin 9.8 g/dL (12.0-16.0); Mean Corp Hgb Conc. 32.8 g/dL (33.0-37.0); Mean Corpuscular Volume 109.9 fL (81.0-99.0); Mean Platelet Volume 8.6 fL (7.4-10.4); Platelet Count 149 10^3/uL (130-400); Red Blood Cell Count 2.72 10^6/uL (4.20-5.40); Red Cell Dist. Width 14.5 % (11.5-14.5); White Blood Cell Count 5.3 10^3/uL (4.8-10.8)
[2024-03-26] MEDS: DESYREL 150 MG PO (22:41)
[2024-03-26] MEDS: ABILIFY 5 MG PO (22:41)
[2024-03-27] VITALS (8 sets, daily range): BP systolic 86–122; BP diastolic 45–91; BMI 39.2
[2024-03-27] MEDS: TOPROL XL PO (08:02)
[2024-03-27] MEDS: NEURONTIN 100 MG PO (08:02)
[2024-03-27] MEDS: ATIVAN 0.5 MG PO ×2 (08:03→21:15)
[2024-03-27] MEDS: WELLBUTRIN SR (12 hour sustained release) 150 MG PO (08:03)
--- NOTE | 2024-03-27 15:06 | W.PN.HOSP.TC ---
Today's Communication/Plan
-
Assessment / Plan
Assessment / Plan
Syncope / Fall
- Tele monitor
- 2d echo
- Cards following suspect vasovagal
- Orthostatics neg
LE Pain / Redness
-Chronic changes, NATHAN wrapping, Will give diureitc
-Strange/rare to have b/l LE cellulitis, no white count and afebrile
-No indication for atb at this time
Cardiomyopathy - hx of
HAMMER
-2d echo completed
-lasix IV
-cards
Fatty liver/Transaminitis
-Check acute hep panel
-RUQUS
Subclinical hypothyroid
-Repeat TFT's in 4-6weeks
Chronic Hyponatremia
Hyperkalemia - resolved, hold acei/arb indef
- IVFs given in the ED (500cc).
- Follow labs / lytes for improvement.
- Na level is at her typical baseline.
- Fluid restriction.
COPD
- No active wheezing, cough, etc.
- Albuterol PRN.
- Oxygen supplementation as needed.
Macrocytic Anemia
- Outpt pcp follow up
- age appropriate cancer screenign
Bipolar Depression
Migraine Headaches
- Stable. Continue current psychotropic regimen.
Anticipated Discharge: Within 24 hours
Subjective/Interval History
-
Date of Service: March 27, 2024
seen and examined
no new complaints
no acute overnight events
admits to weight gain of more then 80lbs, feels like her abd is distended
-denies alcohol use
-denies hx of mammo/c-scope
b/l le swelling/redness on going for 1yrs/3weeks
no fever, chills
Objective Data
-
Labs:
Laboratory Results
03/27/24
14:39
Sodium Pending
Potassium Pending
Chloride Pending
Carbon Dioxide Pending
BUN Pending
Creatinine Pending
Glucose Pending
Calcium Pending
Vital Signs:
Vital Signs
Temp Pulse Resp BP Pulse Ox
97.7 F 83 20 97/60 99
03/27/24 11:00 03/27/24 11:00 03/27/24 11:00 03/27/24 11:00 03/27/24 11:00
I&O
03/26/24 03/27/24 03/28/24
06:59 06:59 06:59
Intake Total 240 / 240 960 / 960
Balance 240 / 240 960 / 960
Physical Exam
-
General: No Apparent Distress
HEENT: Normocephalic and Atraumatic
Respiratory: Clear to Auscultation
Cardiac: Regular Rhythm and S1/S2
GI: Soft, Normal Bowel Sounds and Distended
Musculoskeletal: Edema, Right Lower Extrem, Edema, Left Lower Extrem and Other (b/l le venostsis changes (chronic))
Skin: Warm
Neuro: Awake, Alert, Oriented and AO x 3
[2024-03-27] MEDS: NEURONTIN 300 MG PO ×2 (15:57→22:17)
[2024-03-27] MEDS: LOVENOX 40 MG SC (15:58)
[2024-03-27] MEDS: LASIX 40 MG IV (15:58)
[2024-03-27 16:54] LABS: Hepatitis B Surface Antigen Negative (Negative)
[2024-03-27 17:11] LABS: Hepatitis A Antibody, Total Negative (Negative); Hepatitis B Core Ab, Total Negative (Negative); Hepatitis B Surface Antibody Negative; Hepatitis C Antibody Negative (Negative)
--- NOTE | 2024-03-27 18:57 | W.PN.CARDCBS ---
Today's Communication / Plan
-
Continue to follow on telemetry.
Echo overall unremarkable
? Vagal episode
Okay to continue IV Lasix for now, although exam very difficult to assess volume status.
proBNP is low but this can be falsely low in obesity
Impression / Plan
-
Primary Investigative Shopper: Dr. Dumont
Assessment:
Presentation with fall, possible syncope
LE edema B/L
Acute on chronic hyponatremia
Hyperkalemia
Anemia
Recovered nonischemic cardiomyopathy, previously 40-45% in 2020, now 50-55%
Chronic left bundle branch block
Hypertension
COPD
Anxiety/depression
History of migraines
History of alcohol abuse
Former smoker
ECHO 03/26/2024: Technically difficult study, Definity used, EF 50 to 55%, mild concentric LVH, paradoxical septal motion consistent with left bundle branch block, mild MAC, mild MR, no significant change compared to prior
Plan:
-No clear etiology for syncope. Telemetry overall unremarkable. Continue to follow.
proBNP 292 which may be underestimated due to obesity. Chest x-ray without acute abnormalities noted. Volume status difficult to assess. Okay to continue Lasix for now but would likely switch to oral in a.m.
-Did have peripheral vascular ultrasound negative for DVT. Also had lower extremity arterial study without evidence of arterial insufficiency, ABIs within normal limits
-Add compression stockings
-follow ortho VS
-echo 03/26 with preserved EF, stable compared to prior
Progress Note - Investigative Shopper
Subjective
Date of Service: March 27, 2024
No further episodes of dizziness or lightheadedness
Objective
Labs:
03/26/24 20:20
Labs
Hgb 9.8 g/dL (12.0-16.0) L 03/26/24 20:20
Hct 29.9 % (37.0-47.0) L 03/26/24 20:20
Plt Count 149 10^3/uL (130-400) D 03/26/24 20:20
Sodium 129 mmol/L (135-145) L 03/26/24 12:37
Potassium 4.8 mmol/L (3.5-5.1) 03/26/24 12:37
BUN 25 mg/dl (7-17) H 03/26/24 12:37
Creatinine 1.1 mg/dL (0.6-1.0) H 03/26/24 12:37
Glucose 116 mg/dl (70-99) H 03/26/24 12:37
Troponins
03/25/24 03/26/24 03/26/24
22:59 03:12 12:37
Troponin I < 0.012 < 0.012 < 0.012
Vital Signs and I&O:
Vital Signs
Temp Pulse Resp BP Pulse Ox
97.4 F 82 20 122/91 98
03/27/24 16:32 03/27/24 16:32 03/27/24 16:32 03/27/24 16:32 03/27/24 16:32
Vital Signs
Temp Pulse Resp BP Pulse Ox
97.4 F 82 20 122/91 98
03/27/24 16:32 03/27/24 16:32 03/27/24 16:32 03/27/24 16:32 03/27/24 16:32
Intake & Output
03/25/24 03/26/24 03/27/24 03/28/24
06:59 06:59 06:59 06:59
Intake Total 240 / 240 960 / 960
Balance 240 / 240 960 / 960
Physical Exam
Physical Exam
GEN: No distress, awake, Ox3
HEENT: supple, anicteric, mmm
LUNGS: CTA, no wheezes/rales
CV: Reg, S1/S2, 1/6 syst LSB, no gallop
ABD: soft, BS+, NT/ND
EXT: +1 non-pitting edema
NEURO: Gross non-focal
SKIN: No rash
[2024-03-27] MEDS: ABILIFY 5 MG PO (22:17)
[2024-03-27] MEDS: DESYREL 150 MG PO (22:18)
[2024-03-28] VITALS (8 sets, daily range): BP systolic 100–121; BP diastolic 56–99; BMI 39.5
[2024-03-28 08:22] LABS: Hematocrit 34.5 % (37.0-47.0); Hemoglobin 10.8 g/dL (12.0-16.0); Mean Corp Hgb Conc. 31.3 g/dL (33.0-37.0); Mean Corpuscular Hgb 35.9 pg (27.0-31.0); Mean Corpuscular Volume 114.6 fL (81.0-99.0); Mean Platelet Volume 9.3 fL (7.4-10.4); Platelet Count 159 10^3/uL (130-400); Red Blood Cell Count 3.01 10^6/uL (4.20-5.40); Red Cell Dist. Width 14.1 % (11.5-14.5)
[2024-03-28] MEDS: LASIX 40 MG IV (08:28)
[2024-03-28] MEDS: WELLBUTRIN SR (12 hour sustained release) 150 MG PO (08:29)
[2024-03-28] MEDS: TOPROL XL 25 MG PO (08:29)
[2024-03-28] MEDS: NEURONTIN 300 MG PO ×3 (08:30→21:07)
[2024-03-28] MEDS: ATIVAN 0.5 MG PO ×2 (08:33→16:59)
[2024-03-28 08:50] LABS: Blood Urea Nitrogen 37 mg/dl (7-17); Calcium 9.9 mg/dl (8.4-10.2); Carbon Dioxide 25 mmol/L (22-30); Chloride 96 mmol/L (98-107); Estimated Creatinine Clearance 65 ml/min; Glucose 119 mg/dl (70-99); Potassium 4.2 mmol/L (3.5-5.1); Sodium 133 mmol/L (135-145); eGFR 48.87
--- NOTE | 2024-03-28 11:41 | PTCARENOTE ---
pt is agreeable to having the CT Scan, despite her increased kidney issues and the IV contrast
[2024-03-28] MEDS: VITAMIN B-12 1000 MCG PO (13:03)
--- NOTE | 2024-03-28 13:54 | W.PN.HOSP.TC ---
Today's Communication/Plan
-
Assessment / Plan
Assessment / Plan
Syncope / Fall
-Tele monitor
- Cards following suspect vasovagal
- Orthostatics neg
LE Pain / Redness
-Chronic changes, NATHAN wrapping
Cardiomyopathy - hx of
HAMMER
-2d echo completed
-lasix IV stopped, bump in Cr
-cards
Fatty liver/Transaminitis
-Hep panel negative
-Abd ultrasound as below
-Will check CTAP with IV/PO con to further assess abd structures
---Despite bump in Cr, she is agreeable to IV contrast, effects on contrast on kidney, understands potential need for HD.
-----initially, declined, then spoke with nurse who states she is agreeable now
---Consult of ivf compression/gloria iswelling cause potential ascities and and edema
Subclinical hypothyroid
-Repeat TFT's in 4-6weeks
Chronic Hyponatremia
Hyperkalemia - resolved, hold acei/arb indef
- IVFs given in the ED (500cc).
- Follow labs / lytes for improvement.
- Na level is at her typical baseline.
- Fluid restriction.
COPD
- No active wheezing, cough, etc.
- Albuterol PRN.
- Oxygen supplementation as needed.
Macrocytic Anemia
- Outpt pcp follow up
- age appropriate cancer screenign
Bipolar Depression
Migraine Headaches
- Stable. Continue current psychotropic regimen.
Anticipated Discharge: Within 24 hours
Subjective/Interval History
-
Date of Service: March 28, 2024
seen and examined
no new compalints
no acute overnight events
Objective Data
-
Labs:
Laboratory Results
03/28/24
07:22
WBC 5.0
Hgb 10.8 L
Hct 34.5 L
Plt Count 159
Sodium 133 L
Potassium 4.2
Chloride 96 L
Carbon Dioxide 25
BUN 37 H
Creatinine 1.3 H
Glucose 119 H
Calcium 9.9
Acute Hep panel
-Ngeative
Vital Signs:
Vital Signs
Temp Pulse Resp BP Pulse Ox
98.0 F 90 16 103/62 97
03/28/24 11:15 03/28/24 11:17 03/28/24 11:15 03/28/24 11:17 03/28/24 11:15
I&O
03/27/24 03/28/24 03/29/24
06:59 06:59 06:59
Intake Total 960 / 960 1260 / 1260 240 / 240
Balance 960 / 960 1260 / 1260 240 / 240
Imaging
Abdominal ultrasound
IMPRESSION:
Significantly limited examination because of large body habitus and relatively poor acoustic windows.
The gallbladder is difficult to visualize, with no gross abnormality.
The common bile duct is unable to be visualized.
Fatty infiltration of the liver with limited visualization of the liver.
The pancreas is unable to be adequately visualized.
2d echo
CONCLUSIONS
Technically difficult study - Lumason used.
Normal left ventricular chamber size. Normal left ventricular systolic
function. Abnormal (paradoxical) septal motion consistent with left bundle
branch block. Mild concentric left ventricular hypertrophy. Left ventricular
ejection fraction is 50-55% by Bazzi's method of discs. Normal diastolic
function.
Mild calcific thickening of the mitral leaflets with adequate excursion. Mild
mitral annular calcification. Mild mitral regurgitation.
Since echocardiogram October 2021, there is no significant change.
Physical Exam
-
General: Well Developed, Well Nourished and No Apparent Distress
HEENT: Normocephalic and Atraumatic
Respiratory: Clear to Auscultation
Cardiac: Regular Rhythm and S1/S2
GI: Soft, Nontender, Nondistended and Normal Bowel Sounds
Musculoskeletal: No Clubbing, No Cyanosis, No Edema and Other (Bilateral lower extremity chronic venous stasis change)
Neuro: Awake, Alert, Oriented and AO x 3
Psych: Calm
[2024-03-28] MEDS: OMNIPAQUE 50 ML PO (14:56)
--- NOTE | 2024-03-28 15:28 | W.PN.CARDCBS ---
Addendum entered and electronically signed by Shiva Mercado MD 03/28/24 17:27:
I saw and examined the patient.
The Pocketbook Maker's note was reviewed and I agree with the note.
Comment:
GEN: No distress, awake, Ox3
HEENT: supple, anicteric, mmm
LUNGS: CTA, no wheezes/rales
CV: Reg, S1/S2, 1/6 syst LSB, no gallop
ABD: soft, BS+, NT/ND
EXT: +1 edema
NEURO: Gross non-focal
SKIN: No rash
plan:
No events on telemetry and echo unremarkable. No clear explanation for syncope.
Edema is more related to venous stasis than congestive heart failure. Would hold off on further IV diuretics.
Creatinine at 1.3. Continue to follow.
Will arrange cardiology follow-up. Will sign off.
Original Note:
Today's Communication / Plan
-
no cardiac etiology of syncope
not in acute CHF
OP cardiac follow up arranged
will sign off
Impression / Plan
-
Primary Skiver Box Toe: Dr. Dumont
Assessment:
Presentation with fall, possible syncope
LE edema B/L
Acute on chronic hyponatremia
Hyperkalemia
Anemia
Recovered nonischemic cardiomyopathy, previously 40-45% in 2020, now 50-55%
Chronic left bundle branch block
Hypertension
COPD
Anxiety/depression
History of migraines
History of alcohol abuse
Former smoker
ECHO 03/26/2024: Technically difficult study, Definity used, EF 50 to 55%, mild concentric LVH, paradoxical septal motion consistent with left bundle branch block, mild MAC, mild MR, no significant change compared to prior
Plan:
-no clear cardiac etiology for syncope.
-tele without noted arrhythmias
-proBNP 292. was given trial of IV lasix with uptrending Cr and stopped. not in acute CHF.
-Did have peripheral vascular ultrasound negative for DVT. Also had lower extremity arterial study without evidence of arterial insufficiency, ABIs within normal limits
-Add compression stockings
-echo 03/26 with preserved EF, stable compared to prior
-OP cardiac follow up arranged
-will plan to sign off. please call with questions.
Progress Note - Skiver Box Toe
Subjective
Date of Service: March 28, 2024
no complaints overnight
Objective
Labs:
03/28/24 07:22
03/28/24 07:22
Labs
Hgb 10.8 g/dL (12.0-16.0) L 03/28/24 07:22
Hct 34.5 % (37.0-47.0) L 03/28/24 07:22
Plt Count 159 10^3/uL (130-400) 03/28/24 07:22
Sodium 133 mmol/L (135-145) L 03/28/24 07:22
Potassium 4.2 mmol/L (3.5-5.1) 03/28/24 07:22
BUN 37 mg/dl (7-17) H 03/28/24 07:22
Creatinine 1.3 mg/dL (0.6-1.0) H 03/28/24 07:22
Glucose 119 mg/dl (70-99) H 03/28/24 07:22
Troponins
03/25/24 03/26/24 03/26/24
22:59 03:12 12:37
Troponin I < 0.012 < 0.012 < 0.012
Vital Signs and I&O:
Vital Signs
Temp Pulse Resp BP Pulse Ox
98.0 F 90 16 103/62 97
03/28/24 11:15 03/28/24 11:17 03/28/24 11:15 03/28/24 11:17 03/28/24 11:15
Vital Signs
Temp Pulse Resp BP Pulse Ox
98.0 F 90 16 103/62 97
03/28/24 11:15 03/28/24 11:17 03/28/24 11:15 03/28/24 11:17 03/28/24 11:15
Intake & Output
03/26/24 03/27/24 03/28/24 03/29/24
07:59 07:59 07:59 07:59
Intake Total 240 / 240 960 / 960 1500 / 1500
Balance 240 / 240 960 / 960 1500 / 1500
[2024-03-28] MEDS: LOVENOX SC (17:03)
[2024-03-28] MEDS: DESYREL 150 MG PO (21:07)
[2024-03-28] MEDS: ABILIFY 5 MG PO (21:07)
[2024-03-29 03:44] VITALS: BP 103/46
[2024-03-29 05:53] VITALS: BMI 39.8
[2024-03-29 07:02] VITALS: BP 102/62
[2024-03-29 07:10] LABS: Hematocrit 30.3 % (37.0-47.0); Mean Platelet Volume 9.1 fL (7.4-10.4); Platelet Count 175 10^3/uL (130-400); Red Blood Cell Count 2.78 10^6/uL (4.20-5.40); White Blood Cell Count 5.5 10^3/uL (4.8-10.8)
[2024-03-29 07:28] LABS: Blood Urea Nitrogen 45 mg/dl (7-17); Calcium 9.7 mg/dl (8.4-10.2); Carbon Dioxide 31 mmol/L (22-30); Chloride 92 mmol/L (98-107); Estimated Creatinine Clearance 65 ml/min; Glucose 106 mg/dl (70-99); Potassium 4.2 mmol/L (3.5-5.1); Sodium 132 mmol/L (135-145); eGFR 48.87
[2024-03-29] MEDS: WELLBUTRIN SR (12 hour sustained release) 150 MG PO (07:40)
[2024-03-29] MEDS: NEURONTIN 300 MG PO (07:40)
[2024-03-29] MEDS: VITAMIN B-12 1000 MCG PO (07:41)
[2024-03-29] MEDS: TOPROL XL 25 MG PO (07:41)
[2024-03-29] MEDS: ATIVAN 0.5 MG PO (09:44)
[2024-03-29 11:05] VITALS: BP 108/64
--- NOTE | 2024-03-29 13:00 | W.PN.HOSP.TC ---
Today's Communication/Plan
-
DC home
More than 30 minutes spent in discharge including
Final examination of the patient
Summarizing hospital stay
Instructions for continuing care to all relevant caregivers
Preparation of discharge records, prescriptions, and referral forms
Total time spent (in minutes): 32mins
Assessment / Plan
Assessment / Plan
Syncope / Fall
-Tele monitor - no activity
- Cards following suspect vasovagal
- Orthostatics neg
LE Pain / Redness
-Chronic changes, NATHAN wrapping
Cardiomyopathy - hx of
HAMMER
-2d echo completed
-PO lasix
-cards follow up
Fatty liver/Transaminitis
-Hep panel negative
-Abd ultrasound as below
-Will check CTAP with IV/PO con to further assess abd structures
---Despite bump in Cr, she is agreeable to IV contrast, effects on contrast on kidney, understands potential need for HD.
-----initially, declined, then spoke with nurse who states she is agreeable now
---Consult of ivf compression/gloria iswelling cause potential ascities and and edema
Subclinical hypothyroid
-Repeat TFT's in 4-6weeks
Chronic Hyponatremia
Hyperkalemia - resolved, hold acei/arb indef
- IVFs given in the ED (500cc).
- Follow labs / lytes for improvement.
- Na level is at her typical baseline.
- Fluid restriction.
COPD
- No active wheezing, cough, etc.
- Albuterol PRN.
- Oxygen supplementation as needed.
Macrocytic Anemia
- Outpt pcp follow up
- age appropriate cancer screenign
Bipolar Depression
Migraine Headaches
- Stable. Continue current psychotropic regimen.
Anticipated Discharge: Today
Subjective/Interval History
-
Date of Service: March 29, 2024
Seen and examined. No new complaints. No acute overnight events.
Updated about adrenal adenoma. Verbalized understanding needs to follow-up with PCP. Verbalized understanding no change from prior scan.
Objective Data
-
Labs:
Laboratory Results
03/29/24
06:26
WBC 5.5
Hgb 10.0 L
Hct 30.3 L
Plt Count 175
Sodium 132 L
Potassium 4.2
Chloride 92 L
Carbon Dioxide 31 H
BUN 45 H
Creatinine 1.3 H
Glucose 106 H
Calcium 9.7
Vital Signs:
Vital Signs
Temp Pulse Resp BP Pulse Ox
98.1 F 71 16 102/62 95
03/29/24 07:02 03/29/24 07:41 03/29/24 07:02 03/29/24 07:41 03/29/24 07:02
I&O
03/28/24 03/29/24 03/30/24
06:59 06:59 06:59
Intake Total 1260 / 1260 1979
Balance 1260 / 1260 1979
Physical Exam
-
General: Well Developed and Well Nourished
HEENT: Normocephalic and Atraumatic
Respiratory: Clear to Auscultation
Cardiac: Regular Rhythm and S1/S2
GI: Soft, Nontender, Nondistended and Normal Bowel Sounds
Musculoskeletal: No Clubbing and No Cyanosis
Skin: Warm
Neuro: Awake and Alert
Psych: Calm
--- NOTE | 2024-03-29 13:18 | W.DCSUMMARY ---
Discharge Summary
Discharge Data
Date of Admission: 03/25/24
Date of Discharge: 03/29/24
-
Pending Results: No
Hospital Course
53y F with PMH significant for hypertension, HFrecEF and Bipolar disorder
Presented after feeling lightheaded and fell but not sure if lost consciousness. Has had ongoing bilateral lower extremity pain redness weakness swelling and weight gain that has been ongoing for the past 1 year. Evaluated by cardiology suspect
potentially vasovagal as no other etiology could be found. Telemetry no arrhythmia. 2D echocardiogram with a EF of 50 to 55% with no significant change from prior study. DVT study negative. Arterial ultrasound of lower extremity without evidence
of arterial insufficiency. Started on compression stockings. Suspect lower extremity swelling is likely related to chronic venous stasis changes. Due to the lower leg swelling and weight gain abdominal ultrasound was obtained without acute
findings. Please see report. Recommended CT abdomen pelvis however declined at this time and would like to have it completed as outpatient as renal function at 1.3 and would like to have this reevaluated as an outpatient and recieved IV diuretics.
CHanged her mind for the CT and this was completed
Chronically low sodium on discharge 133, continue to fluid restrict to 48 ounces daily.
Had mildly high liver function testing, hepatitis panel negative. CT scan reviewed from 2022 - severe diffuse hepatic steatosis. Abdominal ultrasound fatty infiltration but limited visualization of the liver
Should have outpatient age-appropriate cancer screening will need outpatient follow-up with PCP.
-Verbalized understanding and will also follow-up for repeat BMP in [address] scan once renal function stabilizes.
Started on PO B12 a sb12 level was 330's. MCV's in trhe 110's with Hgb 10. Spoke with GI, recommened outpatient EGD and C-scope.
CXR
IMPRESSION:
No acute cardiopulmonary process.
DVT Srudy
IMPRESSION: No evidence of deep venous thrombosis bilaterally.
Arterial Study
IMPRESSION: No evidence of bilateral lower extremity arterial insufficiency. Ankle and toe brachial indices are within normal limits bilaterally. Multiphasic waveforms from bilateral common femoral through popliteal arteries with no velocity
elevation to suggest any significant stenosis. Continuous Doppler waveforms at bilateral dorsalis pedis and posterior tibial arteries also remain multiphasic.
Abd US
IMPRESSION:
Significantly limited examination because of large body habitus and relatively poor acoustic windows.
The gallbladder is difficult to visualize, with no gross abnormality.
The common bile duct is unable to be visualized.
Fatty infiltration of the liver with limited visualization of the liver.
The pancreas is unable to be adequately visualized.
2d echo
CONCLUSIONS
Technically difficult study - Lumason used.
Normal left ventricular chamber size. Normal left ventricular systolic
function. Abnormal (paradoxical) septal motion consistent with left bundle
branch block. Mild concentric left ventricular hypertrophy. Left ventricular
ejection fraction is 50-55% by Bazzi's method of discs. Normal diastolic
function.
Mild calcific thickening of the mitral leaflets with adequate excursion. Mild
mitral annular calcification. Mild mitral regurgitation.
Since echocardiogram October 2021, there is no significant change.
CTAP
IMPRESSION:
1). There is no evidence of acute pathology
2). Diffuse fatty infiltration of the liver.
3). 2 cm right adrenal adenoma
4). Multilevel degenerative disc disease
Discharge Plan
-
Patient Disposition: Home (Routine Discharge)
Discharge Diagnosis/Procedures: Syncope�likely vasovagal
Condition: Good
Diet: As tolerated and Restrict fluids to 64 oz
Activity: As tolerated
Blood Work: Repeat thyroid function test with PCP in 4-6weeks
Activity Restrictions/Additional Instructions:
Presented after feeling lightheaded and fell but not sure if lost consciousness. Has had ongoing bilateral lower extremity pain redness weakness swelling and weight gain that has been ongoing for the past 1 year. Evaluated by cardiology suspect
potentially vasovagal as no other etiology could be found. Telemetry no arrhythmia. 2D echocardiogram with a EF of 50 to 55% with no significant change from prior study. DVT study negative. Arterial ultrasound of lower extremity without evidence
of arterial insufficiency. Started on compression stockings. Suspect lower extremity swelling is likely related to chronic venous stasis changes. Due to the lower leg swelling and weight gain abdominal ultrasound was obtained without acute
findings. Please see report. Recommended CT abdomen pelvis however declined at this time and would like to have it completed as outpatient as renal function at 1.3 and would like to have this reevaluated as an outpatient and recieved IV diuretics.
CHanged her mind for the CT and this was completed
Chronically low sodium on discharge 133, continue to fluid restrict to 48 ounces daily.
Had mildly high liver function testing, hepatitis panel negative. CT scan reviewed from 2022 - severe diffuse hepatic steatosis. Abdominal ultrasound fatty infiltration but limited visualization of the liver
Should have outpatient age-appropriate cancer screening will need outpatient follow-up with PCP.
-Verbalized understanding and will also follow-up for repeat BMP in [address] scan once renal function stabilizes.
Started on PO B12 a sb12 level was 330's. MCV's in trhe 110's with Hgb 10. Spoke with GI, recommened outpatient EGD and C-scope.
CXR
IMPRESSION:
No acute cardiopulmonary process.
DVT Srudy
IMPRESSION: No evidence of deep venous thrombosis bilaterally.
Arterial Study
IMPRESSION: No evidence of bilateral lower extremity arterial insufficiency. Ankle and toe brachial indices are within normal limits bilaterally. Multiphasic waveforms from bilateral common femoral through popliteal arteries with no velocity
elevation to suggest any significant stenosis. Continuous Doppler waveforms at bilateral dorsalis pedis and posterior tibial arteries also remain multiphasic.
Abd US
IMPRESSION:
Significantly limited examination because of large body habitus and relatively poor acoustic windows.
The gallbladder is difficult to visualize, with no gross abnormality.
The common bile duct is unable to be visualized.
Fatty infiltration of the liver with limited visualization of the liver.
The pancreas is unable to be adequately visualized.
2d echo
CONCLUSIONS
Technically difficult study - Lumason used.
Normal left ventricular chamber size. Normal left ventricular systolic
function. Abnormal (paradoxical) septal motion consistent with left bundle
branch block. Mild concentric left ventricular hypertrophy. Left ventricular
ejection fraction is 50-55% by Bazzi's method of discs. Normal diastolic
function.
Mild calcific thickening of the mitral leaflets with adequate excursion. Mild
mitral annular calcification. Mild mitral regurgitation.
Since echocardiogram October 2021, there is no significant change.
CTAP
IMPRESSION:
1). There is no evidence of acute pathology
2). Diffuse fatty infiltration of the liver.
3). 2 cm right adrenal adenoma
4). Multilevel degenerative disc disease
Referrals:
Kae Goldman CRNP [Specified Professional Personl] - in two to three weeks
NONE,* [Family Provider] -
Kenneth Freeman MD [Non-Admitting Privileges] - in two to four weeks
Ludy Hadley PA-C [Specified Professional Personl] - 04/23/24 1:40 pm (You have a cardiology follow-up appointment at the [place] office with Dr. Dumont's physician mortgage loan assistant, Ludy. Please call with questions)
Prescriptions:
New
gabapentin 100 mg capsule
100 mg PO TID Qty: 90 0RF
cyanocobalamin (vitamin B-12) 1,000 mcg Tablet
1,000 mcg PO DAILY Qty: 30 0RF
Continued
lisinopril 20 MG tablet
20 mg PO DAILY
bupropion HCl 150 MG tablet sustained-release 12 hr
150 mg PO DAILY
lorazepam [Ativan] 0.5 mg Tablet
0.5 mg PO BID
trazodone 150 mg tablet
150 mg PO HS
furosemide 40 mg tablet
40 mg PO DAILY
sumatriptan succinate 6 mg/0.5 mL Solution
6 mg SC DAILYPRN PRN (Reason: migraine)
metoprolol succinate 25 mg Tablet Extended Release 24 Hr
25 mg PO DAILY
albuterol sulfate 90 mcg/actuation Hfa Aerosol Inhaler
2 puff INHALATION R Q6HPRN PRN (Reason: sob)
aripiprazole 5 mg Tablet
5 mg PO HS
Discharge Orders:
Discharge Patient (As Directed); Ordered 03/29/24
Ordered By: Skip Cornejo
Discharge Date and Time
Print Language: FAROESE
== END 2024-03-29 16:39 | disposition home or self-care (01) ==
LOC: 4 WEST ACU 19:56
PROVIDERS: Nurse Practitioner; ADMITTING PHYSICIAN Hospitalist; ATTENDING PHYSICIAN Hospitalist; CONSULT PHYSICIAN Internal Medicine Cardiovascular Disease; EMERGENCY PHYSICIAN Student in an Organized Health Care Education/Training Program
DX: R42 Dizziness and giddiness (principal); W19.XXXA Unspecified fall, initial encounter; Y93.9 Activity, unspecified; Y92.89 Other specified places as the place of occurrence of the external cause; Y99.0 Civilian activity done for income or pay; F17.200 Nicotine dependence, unspecified, uncomplicated; I50.32 Chronic diastolic (congestive) heart failure; I11.0 Hypertensive heart disease with heart failure; G47.33 Obstructive sleep apnea (adult) (pediatric); J44.9 Chronic obstructive pulmonary disease, unspecified; G43.909 Migraine, unspecified, not intractable, without status migrainosus; I44.7 Left bundle-branch block, unspecified; E66.9 Obesity, unspecified; I25.10 Atherosclerotic heart disease of native coronary artery without angina pectoris; D53.9 Nutritional anemia, unspecified; R07.9 Chest pain, unspecified; I42.8 Other cardiomyopathies; I87.2 Venous insufficiency (chronic) (peripheral); L03.115 Cellulitis of right lower limb; L03.116 Cellulitis of left lower limb; R55 Syncope and collapse; F31.9 Bipolar disorder, unspecified; R45.1 Restlessness and agitation; E87.1 Hypo-osmolality and hyponatremia; E87.5 Hyperkalemia; F41.9 Anxiety disorder, unspecified; K76.0 Fatty (change of) liver, not elsewhere classified; D35.01 Benign neoplasm of right adrenal gland; I34.81 Nonrheumatic mitral (valve) annulus calcification; E03.8 Other specified hypothyroidism; R74.01 Elevation of levels of liver transaminase levels; F10.10 Alcohol abuse, uncomplicated; I87.8 Other specified disorders of veins; Z83.3 Family history of diabetes mellitus; Z68.39 Body mass index [BMI] 39.0-39.9, adult; Z60.2 Problems related to living alone
CPT/HCPCS: 74177; 76700; 80048; 80053; 80061; 82607; 83036; 83540; 83550; 83880; 84439; 84443; 84484; 85025; 85027; 86704; 86706; 86708; 86803; 87340; 93005; 93306; 93922; 93925; 96361; 96374; 97116; 97161; 97165; 99285; G0378; Q9950; Q9967

== ENCOUNTER → 2024-07-10 10:18 | Outpatient (REF) | payer OTHER, SELFPAY | LOC: HWRAD 10:18 | PROVIDERS: ATTENDING PHYSICIAN Nurse Practitioner Adult Health; FAMILY PHYSICIAN Student in an Organized Health Care Education/Training Program | DX: R91.8 Other nonspecific abnormal finding of lung field (principal) | CPT/HCPCS: 71250 ==

== ENCOUNTER 2024-08-07 13:56 | Inpatient (IN) | payer OTHER, SELFPAY ==
[2024-08-07] VITALS (17 sets, daily range): BP systolic 71–112; BP diastolic 40–86; BMI 37.6
[2024-08-07] MEDS: LOW STRENGTH ASPIRIN 324 MG PO (07:27)
[2024-08-07 07:36] LABS: Hematocrit 36.3 % (37.0-47.0); Mean Corp Hgb Conc. 33.1 g/dL (33.0-37.0); Mean Corpuscular Hgb 34.4 pg (27.0-31.0); Mean Platelet Volume 8.8 fL (7.4-10.4); Platelet Count 272 10^3/uL (130-400); Red Blood Cell Count 3.49 10^6/uL (4.20-5.40); Red Cell Dist. Width 12.9 % (11.5-14.5); White Blood Cell Count 9.1 10^3/uL (4.8-10.8)
[2024-08-07] MEDS: NSS 327 ML IV (07:37)
[2024-08-07 07:49] LABS: ALT (SGPT) 16 U/L (0-35); AST (SGOT) 19 U/L (14-36); Albumin 3.9 g/dl (3.5-5.0); Alkaline Phosphatase 80 U/L (38-126); Blood Urea Nitrogen 34 mg/dl (7-17); Calcium 9.6 mg/dl (8.4-10.2); Carbon Dioxide 29 mmol/L (22-30); Chloride 101 mmol/L (98-107); Estimated Creatinine Clearance 54 ml/min; Glucose 102 mg/dl (70-99); Potassium 4.4 mmol/L (3.5-5.1); Sodium 140 mmol/L (135-145); Total Bilirubin 0.5 mg/dl (0.2-1.3); Total Protein 6.5 g/dl (6.3-8.2); eGFR 41.16
--- NOTE | 2024-08-07 13:32 | HPS.HSE ---
Family Physician
-
Family Physician: NOT KNOW UNKNOWN - PT DOES
Chief Complaint
-
shortness of breath
History of Present Illness
53-year-old female past medical history of nonischemic cardiomyopathy, hypertension, subclinical hypothyroidism, chronic hyponatremia, COPD, macrocytic anemia, bipolar depression, migraines, presenting for elective right heart and left heart
catheterization.
Patient has been having progressive shortness of breath with exertion for the past year as well as shortness of breath when she lies down flat. She uses multiple pillows to sleep. Denies any lower extremity swelling or weight gain or weight loss.
Denies cough that is worse than her baseline.
Over the past few weeks she has developed some chest discomfort all over her chest as well as involving her left lower abdomen. Chest discomfort does not last for too long and occurs randomly and not particularly with exertion.
She has also noticed that for an unspecified amount of time her blood pressure has been low. She denies any fevers or chills. Denies nausea vomiting or diarrhea.
She was seeing her stitching machine setter Dr. Nunes who planned for right heart catheterization and left heart catheterization today.
She has a history of smoking currently vapes occasionally. Denies alcohol.
Denies any family history of heart conditions.
Denies any surgeries.
Medical History
Past Medical History
Past Medical History: Reports Other (nonischemic cardiomyopathy, hypertension, subclinical hypothyroidism, chronic hyponatremia, COPD, macrocytic anemia, bipolar depression, migraines, )
Past Surgical History: Reports None
Social History
Tobacco: Vaping
Alcohol: None
Drug: None
Family History
Family History: Not pertinent
Allergies / Home Medications
Allergies reflects when Allergies were last updated in [employer].
Home Medications with original date entered in [employer]
Allergy/Medication List:
Allergies
Allergy/AdvReac Type Severity Reaction Status Date / Time
No Known Allergies Allergy Verified 08/07/24 07:15
Home Medications
bupropion HCl 150 mg tablet,12 hr sustained-release 150 mg PO DAILY Depression 07/09/21
lisinopril 20 mg tablet 20 mg PO DAILY Blood pressure 07/09/21
lorazepam 0.5 mg tablet (Ativan) 0.5 mg PO BID Mental Health/Anxiety 10/29/21
trazodone 150 mg tablet 150 mg PO HS Sleep 10/03/22
furosemide 40 mg tablet 40 mg PO DAILY Fluid Retention/Swelling 10/04/22
albuterol sulfate 90 mcg/actuation aerosol inhaler 2 puff inhalation R Q6HPRN PRN sob 03/25/24
aripiprazole 5 mg tablet 5 mg PO HS Mental Health/Anxiety 03/25/24
metoprolol succinate 25 mg tablet,extended release 24 hr 25 mg PO DAILY Heart Disease/Condition 03/25/24
sumatriptan succinate 6 mg/0.5 mL subcutaneous solution 6 mg SC DAILYPRN PRN migraine 03/25/24
Review of Systems
-
History Source: Patient
A 12 point ROS was completed and negative except as noted: Yes
Constitutional: Reports No Symptoms
EENT: Reports No Symptoms
Respiratory: Reports See HPI
Cardiac: Reports See HPI
Abdomen/GI: Reports No Symptoms
: Reports No Symptoms
Musculoskeletal: Reports No Symptoms
Skin: Reports No Symptoms
Neurological: Reports No Symptoms
Endocrine: Reports No Symptoms
Hematologic/Lymphatic: Reports No Symptoms
Psych: Reports No Symptoms
Physical Exam
Vital Signs
Vital Signs
Temp Pulse Resp BP Pulse Ox
99.2 F 80 12 93/58 93
08/07/24 07:29 08/07/24 12:38 08/07/24 07:20 08/07/24 12:38 08/07/24 12:38
Physical Exam
General: Well Developed, Well Nourished and No Apparent Distress
HEENT: NormoCephalic, Moist mucous membranes and Atraumatic
Respiratory: Clear
Cardiac: S1/S2 and Regular Rhythm; No Murmur or Rub
GI: Soft, Non Tender, Non Distended and Normal Bowel Sounds; No Organomegaly
Rectal: Deferred by Provider
Musculoskeletal: No Clubbing, No Cyanosis and No Edema
Skin: No Rash
Neuro: Nonfocal/grossly intact
Laboratory Results
-
08/07/24 07:24
08/07/24 07:24
Laboratory Results
Total Bilirubin 0.5 mg/dl (0.2-1.3) 08/07/24 07:24
AST 19 U/L (14-36) 08/07/24:24
ALT 16 U/L (0-35) 08/07/24 07:24
Alkaline Phosphatase 80 U/L (38-126) 08/07/24 07:24
Data Reviewed
-
Lab Data: Labs Reviewed by me
Old Records: Reviewed
Impression/Plan
-
IMPRESSION:
PLAN:
# Progressive dyspnea/orthopnea possibly secondary to CHF versus chronic COPD
# History of nonischemic cardiomyopathy, EF previously 40 to 45% in 2020
-Blood pressure initially 80s systolic, improved to 90s with fluid bolus
-Not overtly volume overloaded on examination
-No wheezing on examination
- Cardiac BNP in March 2024 was 292
- Check cardiac BNP and chest x-ray
- Patient came in today for elective RHC and LHC however due to hypotension only RHC will be performed today to evaluate filling pressures
- N.p.o. for now
- Cardiology following
# Hypotension possibly secondary to CHF/antihypertensive medications
- Hold Lasix, metoprolol, lisinopril
- Patient given 350 cc of IV fluid with blood pressure currently 90 systolic
#KITA
- Creatinine of 1.5 from baseline of 1.04 as outpatient earlier this month
- Hold Lasix, lisinopril
- Likely secondary to hypotension which could be secondary to cardiomyopathy
# Intermittent chest discomfort possibly secondary to CHF versus ischemic etiology
-No chest pain currently
- Check EKG
- Needs eventual LHC
Essential hypertension
- Hold metoprolol, lisinopril
Subclinical hypothyroid
Chronic hyponatremia
- Improved
COPD
- Continue albuterol
Smoking history/vaping
Macrocytic anemia
- Improved
Bipolar disorder
- Continue aripiprazole, bupropion, Ativan
Migraine
Insomnia
Continue trazodone
Obesity
Full code
DVT prophylaxis�heparin
N.p.o.
--- NOTE | 2024-08-07 14:35 | ITS.CL.CATH ---
Butcher Apprentice - Catheterization
Cardiac Catheterization
Procedure Report:
RIGHT HEART CATHETERIZATION
Date of Procedure: August 07, 2024
Referring: Sima Stark PA-C, Barrett SaundersO.
INDICATION: Assess invasive hemodynamics in the setting of KITA and borderline blood pressures
Hemodynamics (mmHg):
RA (m) : 18
RV (s/d,m) : 49/21
PA (s/d, m) : 50/29
PCWP (m) : 26
PA saturation: 58.7% on room air
AO saturation: 96.0% on room air
RA saturation: 57.2% on room air
Cardiac Output : 5.1 L/min by Leidy calculation
Cardiac Index : 2.3 L/min/m-2 by Leidy calculation
Systemic vascular resistance: 894 dsc^(-5)
Pulmonary vascular resistance: 2.54 tavares unit
RADIATION SUMMARY: Fluoro Time (min): 1.1, Dose (mGy): 15, DAP (Gy.cm2) : 1 point
CONCLUSION:
1. Significantly elevated right left-sided filling pressures with normal cardiac output.
2. Plan for IV diuresis with close monitoring of renal function as well as electrolytes and blood pressure.
3. Optimized from acute decompensated diastolic heart failure for this admission and reschedule left heart catheterization with coronary angiogram as an outpatient.
Neli Nunes MD, [facility], [facility]
Copy to: Sima Stark PA-C, Fadi Dumont DSusyO.
--- NOTE | 2024-08-07 17:42 | PTCARENOTE ---
1630 Rec'd PT s/p cath, A,A+Ox3, R brachial dsg D+I. Pt instructed to keep R arm straight, not to put weight on R hand or lift anything heavy and that she will be on bedrest x 1 hr. Pt was noted to be climbing OOB after 1/2 hr to use BR. Pt putting
weight on R arm after several times of reminding her not to. R brachial dsg remains D+I.
[2024-08-07] MEDS: ATIVAN 0.5 MG PO (20:33)
[2024-08-07] MEDS: HEPARIN 5000 UNITS SC (20:33)
--- NOTE | 2024-08-07 20:55 | PTCARENOTE ---
Assumed care of pt at 1900. Pt is A/O x4, slightly flat affect, cooperative with care, no c/o pain. S/P right heart cath today, right brachial drsg C/D/I, +2 right radial pulse, see post cath flowsheet for details. Physical assessment as documented
in nursing shift assessment flowsheet. SR on monitor with BBB noted. Pt able to ambulate to BR independently. Toothbrush, toothpaste and mouthwash given to patient, instructed her to brush her teeth which she is able to do independently, pt
verbalized understanding. Call reddy and personal items within reach.
[2024-08-07] MEDS: DESYREL 150 MG PO (21:54)
[2024-08-07] MEDS: ABILIFY 5 MG PO (21:54)
[2024-08-08 03:51] VITALS: BP 105/77
--- NOTE | 2024-08-08 04:13 | PTCARENOTE ---
When obtaining vitals at approx 0350, pt's SpO2 on room air noted to be dropping as low as 81% while asleep (varying between 81-90%). Pt placed on 2LNC and increased to 98%.
[2024-08-08 04:26] VITALS: BMI 37.7
[2024-08-08 05:07] LABS: Hematocrit 34.9 % (37.0-47.0); Hemoglobin 11.4 g/dL (12.0-16.0); Mean Corp Hgb Conc. 32.7 g/dL (33.0-37.0); Mean Corpuscular Hgb 34.2 pg (27.0-31.0); Mean Corpuscular Volume 104.8 fL (81.0-99.0); Mean Platelet Volume 9.7 fL (7.4-10.4); Platelet Count 258 10^3/uL (130-400); Red Blood Cell Count 3.33 10^6/uL (4.20-5.40); Red Cell Dist. Width 12.8 % (11.5-14.5); White Blood Cell Count 7.3 10^3/uL (4.8-10.8)
[2024-08-08 05:08] LABS: % Basophils 0.8 % (0-2); % Eosinophils 1.8 % (0-6); % Immature Granulocytes 0.8 % (0-0.5); % Lymphocytes 19.5 % (20.5-51.1); % Monocytes 6.7 % (1.7-9.3); % Neutrophils 70.4 % (42.2-75.2); Absolute Basophils 0.1 10^3/uL (0-0.2); Absolute Eosinophils 0.1 10^3/uL (0-0.7); Absolute Immature Granulocytes 0.1 10^3/uL (0-0.05); Absolute Lymphocytes 1.4 10^3/uL (1.2-3.4); Absolute Monocytes 0.5 10^3/uL (0.1-0.6); Absolute Neutrophils 5.2 10^3/uL (1.4-6.5); Nucleated Red Blood Cells % 0 %
[2024-08-08 05:20] LABS: NT-proBNP 154 pg/ml
[2024-08-08 05:30] LABS: ALT (SGPT) 18 U/L (0-35); AST (SGOT) 25 U/L (14-36); Albumin 3.9 g/dl (3.5-5.0); Alkaline Phosphatase 54 U/L (38-126); Blood Urea Nitrogen 37 mg/dl (7-17); Calcium 9.1 mg/dl (8.4-10.2); Carbon Dioxide 27 mmol/L (22-30); Chloride 101 mmol/L (98-107); Estimated Creatinine Clearance 74 ml/min; Glucose 102 mg/dl (70-99); Magnesium 1.7 mg/dl (1.6-2.3); Potassium 4.4 mmol/L (3.5-5.1); Sodium 138 mmol/L (135-145); Total Bilirubin 0.6 mg/dl (0.2-1.3); Total Protein 6.5 g/dl (6.3-8.2); eGFR 59.71
[2024-08-08 08:17] VITALS: BP 113/83
[2024-08-08] MEDS: WELLBUTRIN SR (12 hour sustained release) 150 MG PO (09:14)
[2024-08-08] MEDS: HEPARIN 5000 UNITS SC (09:15)
[2024-08-08] MEDS: TOPROL XL 25 MG PO (09:15)
[2024-08-08] MEDS: LASIX 40 MG IV (09:15)
[2024-08-08] MEDS: ATIVAN 0.5 MG PO (09:15)
--- NOTE | 2024-08-08 10:16 | CM ---
Reviewed chart. Met with Ms. Shukla to review discharge plans. She states prior to admission she resides alone in a first floor apartment without any steps to enter. She states prior to admission she was independent with ambulation and adls.
She states she does not have any DME in the home. She states she has a prescription plan and uses [facility]. She states she has a nurse from [facility] when needed and she seen psychiatrist at [facility] for medications. She
states she still works at a local [employer]. We reviewed [facility] at home. At this time she is declining [facility]. Medical work-up in progress. The discharge plan is to return home when medically stable
--- NOTE | 2024-08-08 10:53 | W.PN.CARDCBS ---
Addendum entered and electronically signed by Heike Agarwal DO 08/08/24 12:59:
I saw and examined the patient.
The Public Policy Associate's note was reviewed and I agree with the note.
Comment: Patient was seen and examined. She is adamant about going home as she has to work tomorrow; we did discuss the possibility of contacting her employer regarding hospitalization and providing a note for work however she has declined. No
chest pain. Stable shortness of breath not significantly impacting her at rest.
GEN: No distress, awake, alert, oriented x3
HEENT: mmm
LUNGS: few crackles at b/l bases
CV: Reg, S1/S2, 1/6 syst murmur
EXT: trace edema. Right heart cath site intact
NEURO: Gross non-focal
Plan:
Heart failure with preserved ejection fraction with recent right heart catheterization 08/07 2024 with elevated right and left filling pressures. Pulmonary capillary wedge pressure 26. Normal cardiac output/index. Elevated pulmonary pressures 50/29.
- Will increase Lasix to 40 mg twice daily
- Blood pressures have overall improved and will continue to hold lisinopril
- Continue metoprolol succinate 25 mg daily
- Will repeat basic metabolic profile in 1 week to reassess renal function
- Consider outpatient addition of SGLT2 inhibitor
Shortness of breath with history of nonischemic cardiomyopathy now low normal with underlying left bundle branch block
- Initial plan for left heart catheterization which was deferred due to acute renal insufficiency, creatinine 1.5
- Creatinine has improved, today 1.1
- Eventual rescheduling of ischemic evaluation. No chest pain or pressure.
COPD with outpatient CT of the chest 07/10/2028 noting a spiculated solid pulmonary nodule at the left upper lobe and a spiculated solid nodule in the right upper lobe.
-She has been previously seen by pulmonary as an outpatient and is aware of these findings.
- Patient has a follow-up with pulmonary August 21 to discuss further testing including biopsy
- Additionally she has been previously recommended sleep study for suspected sleep apnea and I have strongly encouraged her to follow through with this
- Discussed the importance of tobacco/vaping cessation and discussed a plan
Discharge home today with outpatient cardiac and pulmonary follow-up
Original Note:
Today's Communication / Plan
-
Transition to PO lasix 40mg BID
Continue to hold lisinopril
Creat improved
Follow up arranged
Impression / Plan
-
Primary Animal Shelter Supervisor: Dr. Dumont
Impression:
Presented for elective RHC
Acute HFpEF
Anemia
Recovered nonischemic cardiomyopathy, previously 40-45% in 2020, now 50-55%
Chronic LBBB
Hypertension
COPD
Anxiety/depression
h/o migraines
h/o alcohol abuse
Former smoker
Echo 03/26/2024: Technically difficult study, Definity used, EF 50 to 55%, mild concentric LVH, paradoxical septal motion consistent with left bundle branch block, mild MAC, mild MR, no significant change compared to prior
Plan:
-Presented for elective RHC. Admitted post procedure with acute heart failure.
-Diuresing with IV lasix 40mg daily. Creat improved overnight, down to 1.1, improving w/ diuresis.
-Patient requesting discharge today. She is not on O2 and is improving symptomatically.
-Will discharge on higher dose lasix 40mg BID with plan to repeat BMP early next week w/ office visit to reassess volume status.
-Continue to hold lisinopril at discharge to allow for more aggressive diuresis over the weekend. Consider resuming as OP pending follow up bloodwork results.
-Continue Toprol 25mg daily.
-Eventually consider [facility] to evaluate for coronary artery disease, however w/ lung nodules noted, likely will need further pulm workup prior.
-Suspected GARETH. OP sleep study recommended.
-OP follow up arranged.
Progress Note - Animal Shelter Supervisor
Subjective
Date of Service: August 08, 2024
Feeling well. Breathing improving.
Objective
Labs:
08/08/24 04:22
08/08/24 04:07
Labs
Hgb 11.4 g/dL (12.0-16.0) L 08/08/24 04:22
Hct 34.9 % (37.0-47.0) L 08/08/24 04:22
Plt Count 258 10^3/uL (130-400) 08/08/24 04:22
Sodium 138 mmol/L (135-145) 08/08/24 04:07
Potassium 4.4 mmol/L (3.5-5.1) 08/08/24 04:07
BUN 37 mg/dl (7-17) H 08/08/24 04:07
Creatinine 1.1 mg/dL (0.6-1.0) H 08/08/24 04:07
Glucose 102 mg/dl (70-99) H 08/08/24 04:07
Vital Signs and I&O:
Vital Signs
Temp Pulse Resp BP Pulse Ox
98.2 F 92 18 113/83 97
08/08/24 08:21 08/08/24 09:00 08/08/24 08:21 08/08/24 08:17 08/08/24 09:10
Vital Signs
Temp Pulse Resp BP Pulse Ox
98.2 F 92 18 113/83 97
08/08/24 08:21 08/08/24 09:00 08/08/24 08:21 08/08/24 08:17 08/08/24 09:10
Intake & Output
08/06/24 08/07/24 08/08/24 08/09/24
06:59 06:59 06:59 06:59
Output Total 800 / 800 650 / 650
Balance -800 / -800 -650 / -650
Physical Exam
Physical Exam
GEN: No distress, awake, alert, oriented x3
HEENT: supple, anicteric, mmm
LUNGS: few crackles at b/l bases
CV: Reg, S1/S2, 1/6 syst murmur
EXT: No clubbing, cyanosis, trace edema
NEURO: Gross non-focal
SKIN: Warm, dry, no rash
[2024-08-08 12:38] VITALS: BP 92/77
--- NOTE | 2024-08-08 14:23 | W.PN.HOSP.TC ---
Addendum entered and electronically signed by Ramiro Peña MD 08/08/24 17:49:
Chronic diastolic CHF
Original Note:
Today's Communication/Plan
-
dc now
Assessment / Plan
Assessment / Plan
# Progressive dyspnea/orthopnea possibly secondary to CHF versus chronic COPD
# History of nonischemic cardiomyopathy, EF previously 40 to 45% in 2020
-Blood pressure initially 80s systolic, improved to 90s with fluid bolus
-Not overtly volume overloaded on examination
-No wheezing on examination
- Cardiac BNP in March 2024 was 292
- Check cardiac BNP and chest x-ray
- Patient came in for elective RHC and LHC however due to hypotension only RHC was performed to evaluate filling pressures
- Cardiology following
# Hypotension possibly secondary to CHF/antihypertensive medications
- Patient given 350 cc of IV fluid with blood pressure currently 90 systolic
#KITA
- Creatinine of 1.5 on admission from baseline of 1.04 as outpatient earlier this month
- Likely secondary to hypotension which could be secondary to cardiomyopathy
# Intermittent chest discomfort possibly secondary to CHF versus ischemic etiology
-No chest pain currently
- Check EKG
- Needs eventual LHC
Essential hypertension
- Hold metoprolol, lisinopril
Subclinical hypothyroid
Chronic hyponatremia
- Improved
COPD
- Continue albuterol
Smoking history/vaping. Has not smoked in 3 yrs, occasionally will vape. Told this must stop as well
she states she will stop
Macrocytic anemia
- Improved
Bipolar disorder
- Continue aripiprazole, bupropion, Ativan
Migraine
Insomnia
Continue trazodone
Obesity
Full code
DVT prophylaxis�heparin
will dc now
Anticipated Discharge: Today
Subjective/Interval History
-
Date of Service: August 08, 2024
Feels well and anxiously awaiting discharge
Objective Data
-
Labs:
Laboratory Results
08/08/24 08/08/24
04:07 04:22
WBC 7.3
Hgb 11.4 L
Hct 34.9 L
Plt Count 258
Sodium 138
Potassium 4.4
Chloride 101
Carbon Dioxide 27
BUN 37 H
Creatinine 1.1 H
Glucose 102 H
Calcium 9.1
Total Bilirubin 0.6
AST 25
ALT 18
Alkaline Phosphatase 54
Vital Signs:
Vital Signs
Temp Pulse Resp BP Pulse Ox
99.7 F 84 16 92/77 93
08/08/24 12:36 08/08/24 13:00 08/08/24 12:36 08/08/24 12:38 08/08/24 13:21
I&O
08/07/24 08/08/24 08/09/24
06:59 06:59 06:59
Intake Total 500 / 500
Output Total 800 / 800 850 / 850
Balance -800 / -800 -350 / -350
Review of Systems
-
History Source: Patient
Constitutional: Reports No Symptoms; Denies Fever
EENT: Reports No Symptoms Reported
Respiratory: Reports No Symptoms; Denies Cough
Cardiac: Reports No Symptoms; Denies Chest Pain
Abdomen/GI: Reports No Symptoms
Genitourinary: Reports No Symptoms
Musculoskeletal: Reports No Symptoms
Neuro: Reports No Symptoms
Physical Exam
-
General: Well Developed, Well Nourished and No Apparent Distress
HEENT: Normocephalic, Atraumatic and Moist Mucous Membranes
Respiratory: Clear to Auscultation; Negative Wheezes, Rales or Rhonchi
Cardiac: Regular Rhythm and S1/S2
GI: Soft, Nontender and Nondistended
Musculoskeletal: No Clubbing, No Cyanosis and No Edema
Skin: Warm, Dry and Rash
Neuro: Awake, Alert and Oriented
[2024-08-08 14:49] VITALS: BP 102/91
--- NOTE | 2024-08-08 15:34 | PN.CDI ---
CDI
- -
CDI:
Physician Documentation Request
Admit Date: 08/07/24 13:56
Dear Doctor Mariana,
Patient admitted with dyspnea.
08/08 PN,'Progressive dyspnea/orthopnea possibly secondary to CHF versus chronic COPD.'
08/08 Cardiology note, 'Heart failure with preserved ejection fraction with recent right heart catheterization 08/07 2024
Patient received IV Lasix 40 mg today.
Please clarify which of the following accurately represents the acuity of the documented diastolic CHF:
Acute diastolic CHF
Acute on chronic diastolic CHF
Chronic diastolic CHF
Other
Use of terms such as suspected, likely, concern for, or probable (associated with a specific diagnosis that is being evaluated, monitored, or treated as if it exists) are acceptable and can be coded in the inpatient setting, when documented at the
time of discharge.
Thank you,
Dipti FORD,RN,CCDS
CDI Specialist
Available via [place] text
Please use your independent medical judgment in providing your response.
--- NOTE | 2024-08-08 15:49 | PTCARENOTE ---
Pt denies any discomfort, diuresed less than 1L after IV lasix. Pt seen by drs. Mariana Agarwal. Telemetry and IV device removed. Discharge instructions reviewed with pt regarding CHF guidelines, medications and their possible side effects,
activity guidelines, wound care post cardiac cath, reproting cares and concerns and follow up appt's. Very good understanding verbalized. Pt escorted out via wheelchair, transported home via [employer].
--- NOTE | 2024-08-08 17:50 | W.DS.TRANS ---
DC Summary - Us Administrative Law Judge
-
Discharge Instructions:
Discharge Diagnosis/Procedures Heart Failure with preserved EF
Diet Low Sodium,Restrict fluids to 64 oz
Activity No restrictions
Driving Restrictions As prior to admission
Bathing Restrictions None
Blood Work BMP in 1 week
Instructions:
Stand-Alone Forms: DC Instructions- Cath/EP Lab
Changes to Home Medications: Yes
Discharge Medications:
DC Medications w/original date entered in [employer]
bupropion HCl 150 mg tablet,12 hr sustained-release 150 mg PO DAILY Depression 07/09/21
lorazepam 0.5 mg tablet (Ativan) 0.5 mg PO BID Mental Health/Anxiety 10/29/21
trazodone 150 mg tablet 150 mg PO HS Sleep 10/03/22
albuterol sulfate 90 mcg/actuation aerosol inhaler 2 puff inhalation R Q6HPRN PRN sob 03/25/24
aripiprazole 5 mg tablet 5 mg PO HS Mental Health/Anxiety 03/25/24
sumatriptan succinate 6 mg/0.5 mL subcutaneous solution 6 mg SC DAILYPRN PRN migraine 03/25/24
furosemide 40 mg tablet 40 mg PO BID Fluid Retention/Swelling #0 tabs 08/08/24
metoprolol succinate 25 mg tablet,extended release 24 hr 25 mg PO DAILY Heart Disease/Condition #30 tabs 08/08/24
Home Medication Changes
Lisinopril stopped
Lasix increased to bid
Pending Results: No
== END 2024-08-08 15:42 | disposition home or self-care (01) | DRG 287 ==
LOC: IVU 13:56
PROVIDERS: Internal Medicine Interventional Cardiology; ADMITTING PHYSICIAN Hospitalist; ATTENDING PHYSICIAN Internal Medicine
PROC: 4A023N6 Measurement of Cardiac Sampling and Pressure, Right Heart, Percutaneous Approach (ICD-10-PCS; 2024-08-07)
PROC: B2111ZZ Fluoroscopy of Multiple Coronary Arteries using Low Osmolar Contrast (ICD-10-PCS; 2024-08-07)
PROC: B2141ZZ Fluoroscopy of Right Heart using Low Osmolar Contrast (ICD-10-PCS; 2024-08-07)
DX: I42.8 Other cardiomyopathies (principal); I50.32 Chronic diastolic (congestive) heart failure; N17.9 Acute kidney failure, unspecified; E87.1 Hypo-osmolality and hyponatremia; F31.30 Bipolar disorder, current episode depressed, mild or moderate severity, unspecified; R06.00 Dyspnea, unspecified; I11.0 Hypertensive heart disease with heart failure; E03.8 Other specified hypothyroidism; J44.9 Chronic obstructive pulmonary disease, unspecified; Z87.891 Personal history of nicotine dependence; D53.9 Nutritional anemia, unspecified; G43.909 Migraine, unspecified, not intractable, without status migrainosus; G47.00 Insomnia, unspecified; E66.9 Obesity, unspecified
CPT/HCPCS: 71045; 80053; 83735; 83880; 85025; 85027; 93005; 93451; C1769; C1894

== ENCOUNTER 2024-10-16 07:38 | Day surgery (SDC) | payer OTHER, SELFPAY ==
[2024-10-16] VITALS (15 sets, daily range): BP systolic 121–147; BP diastolic 72–95; BMI 42.3
[2024-10-16] MEDS: LOW STRENGTH ASPIRIN 324 MG PO (08:35)
[2024-10-16 10:25] LABS: ACT-LR - POC 190 Seconds (116-155)
--- NOTE | 2024-10-16 11:02 | ITS.CL.CATH ---
Psychometric Examiner - Catheterization
Cardiac Catheterization
Procedure Report:
RIGHT AND LEFT HEART STUDY
Date of Procedure: October 16, 2024
Referring: Dr. Fadi Dumont
PROCEDURES:
1. Right heart catheterization
2. Left heart catheterization with coronary and single-plane left ventriculography
INDICATION: Shortness of breath and chest discomfort
ACCESS: Right radial artery, 6 Korean sheath and right common femoral vein, 6 Korean sheath
HEMODYNAMICS : mmHg
RA (m) : 20
RV (s/d) : 56/15
PA (s/d, m) : 53/29, 38
PCWP (m) : 35 with large V waves
AO (s/d, m) : 150/82, 108
LV (s/d) : 148/21
LVEDP : 43
Estimated Leidy Cardiac Output: 5.2 L / min and Cardiac Index: 2.4 L/ min / m-2
Systemic vascular resistance: 16.9 Wood units or 1354 [id number](-5)
Pulmonary vascular resistance: 0.6 Wood units or 46 [id number](-5)
CORONARY FINDINGS :
Dominance: Right
LEFT MAIN: Normal
LEFT ANTERIOR DESCENDING: The LAD arises normally from the left main and runs in the anterior interventricular groove. The LAD is widely patent and approaches but does not wraparound the apex
CIRCUMFLEX: The circumflex is rather small supplying a small obtuse marginal branch
RIGHT CORONARY ARTERY: The right coronary artery is a large-caliber dominant vessel that is widely patent over its course. The PDA is large. The posterolateral branch is large
VENTRICULOGRAPHY: Left ventriculography is performed in [place] projection. The digital single-plane left ventricular ejection fraction is estimated at 60% no regional wall motion abnormalities are noted
SEDATION: 55 minutes of procedural sedation was utilized. An independent electromedical service engineer was present to assist with and help manage the patient's level of consciousness and physiologic status
RADIATION SUMMARY: Fluoro Time (min): 8.8, Dose (mGy): 439, DAP (Gy.cm2) : 37.3
CONCLUSIONS
1. Nonobstructive coronary disease
2. Elevated right and left ventricular filling pressures
RECOMMENDATIONS
1. Increase furosemide to 80 mg p.o. twice daily. She will follow-up with Dr. Dumont
Copy to: Dr. Fadi Dumont
[2024-10-16] MEDS: LASIX 40 MG IV (11:13)
[2024-10-16] MEDS: KCL 20 MEQ PO (11:41)
== END 2024-10-16 13:30 | disposition home or self-care (01) ==
LOC: CATH 07:38
PROVIDERS: ATTENDING PHYSICIAN Internal Medicine Interventional Cardiology; FAMILY PHYSICIAN Student in an Organized Health Care Education/Training Program; REFERRING PHYSICIAN Nuclear Medicine Nuclear Cardiology
DX: I25.10 Atherosclerotic heart disease of native coronary artery without angina pectoris (principal); I11.0 Hypertensive heart disease with heart failure; I44.7 Left bundle-branch block, unspecified; F41.9 Anxiety disorder, unspecified; J44.9 Chronic obstructive pulmonary disease, unspecified; Z79.899 Other long term (current) drug therapy
CPT/HCPCS: 99152; 99153; 85347; 93460; C1769; C1894

== ENCOUNTER 2024-12-11 20:18 | Inpatient (IN) | payer OTHER, SELFPAY ==
[2024-12-11 16:06] VITALS: BP 126/69
[2024-12-11 17:42] VITALS: BMI 40.9
[2024-12-11 17:55] LABS: Hematocrit 36.9 % (37.0-47.0); Hemoglobin 12.4 g/dL (12.0-16.0); Mean Corp Hgb Conc. 33.6 g/dL (33.0-37.0); Mean Corpuscular Volume 101.9 fL (81.0-99.0); Nucleated Red Blood Cells % 0 %; Platelet Count 249 10^3/uL (130-400); Red Cell Dist. Width 13.0 % (11.5-14.5)
[2024-12-11 18:14] LABS: ALT (SGPT) 25 U/L (0-35); AST (SGOT) 34 U/L (14-36); Albumin 4.3 g/dl (3.5-5.0); Alkaline Phosphatase 75 U/L (38-126); Blood Urea Nitrogen 23 mg/dl (7-17); Calcium 9.1 mg/dl (8.4-10.2); Carbon Dioxide 35 mmol/L (22-30); Chloride 94 mmol/L (98-107); Estimated Creatinine Clearance 109 ml/min; Glucose 125 mg/dl (70-99); Potassium 4.1 mmol/L (3.5-5.1); Sodium 135 mmol/L (135-145); Total Protein 7.2 g/dl (6.3-8.2); eGFR > 60.00
[2024-12-11 18:22] LABS: Troponin I < 0.012 ng/ml
--- NOTE | 2024-12-11 18:42 | ED.GENMED ---
History of Present Illness
General
Chief Complaint: Cardiac Symptoms
Source: patient
Exam Limitations: none
Time Seen by Provider: 12/11/24 17:39
Nursing documentation reviewed up to this point in time: agreed with
History of Present Illness
History of Present Illness:
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
Patient denies chest pressure at rest, along with increased leg swelling. Denies fever or chills. Denies coughing. Denies vomiting or diarrhea. Denies recent change in diet. Denies recent travel. Denies recent surgery.
Past History
Past History
ED Past Medical History: CHF, COPD, HTN, Psychiatric and Other (Migraine headaches, obstructive sleep apnea, alcohol use, left bundle branch block)
ED Past Surgical History: Other
Social History
Tobacco: Smoker
Alcohol: Daily
Drug: None
Personal: Single
Living: with family
Employment: Employed
Family History
Family History: Other
Review of Systems
Review of Systems
Allergies reviewed?: Yes
All Other Systems: ROS reviewed and negative except as documented in HPI and ROS
Constitutional: Reports no symptoms; Denies fever
Respiratory: Reports trouble breathing; Denies cough
Cardiac: Reports chest pain; Denies palpitations or syncope
ABD/GI: Reports no symptoms; Denies vomiting or diarrhea
Musculoskeletal: Reports edema
Skin: Reports no symptoms
Neurological: Reports no symptoms
Phy Exam
Physical Exam
Physical Exam:
Physical Exam
General: mild distress, not acutely ill. afebrile
Head: nc/at. eomi
Neck: supple. no meningeal signs.
Heart: s1/s2 regular rate and rhythm,
Lungs: mild respiratory distress. diminished breath sounds bilaterally
Abdomen: normal bowel sounds. not tender.
Neuro: alert and oriented x 3. no focal neurological deficits
Skin: no rash
Psychiatric: well kept. interactive and cooperative
Extremities: LE b/l, pitting edema with diffuse tenderness to palpation
Scores
Heart Failure Risk
Heart Failure Risk Score: Yes
History of Stroke or TIA: No
History of intubation for respiratory distress: No
Heart rate on ED arrival >/= 110: No
SaO2 <90% on arrival on room air: No
HR >/=110 during 3min walk test (or too ill to perform test): No
ECG has acute ischemic changes: No
Urea >/=12mmol/L (BUN 33.6mg/dL): No
Serum CO2>/=35mmol/L: Yes
Troponin I or T elevated to [place] Level (0.4mg/dL): No
NT-proBNP >/=5,000ng/L (5,000pg/ml): No
HF Risk Score: 2
Admission Status: MEDIUM RISK 9.2% Consider observation or discharge to home with homecare & f/u visit to PCP/Director [employer], or SNF for treatment
Course
Orders/Labs/Results
Orders:
Orders
12/11/24 Breakfast
Regular
At Your Request: Full Participation
Fluid Restriction: 1440 mL/day (48 oz)
12/11/24 16:09
Electrocardiogram (*1) Urgent
Reason for Study: Shortness of Breath
EKG- Treatment ONCE
12/11/24 17:31
IV Insert/Care/Rem.- Treatment PRN
12/11/24 17:32
Chest [CR Chest - 2 Views ] Urgent
Comment:
Reason For Exam: SOB, HAMMER
12/11/24 17:46
BNP [NT-proBNP] Urgent
Complete Blood Count/With Diff Urgent
Comprehensive Metabolic Panel Urgent
Troponin I Urgent
12/11/24 18:42
Furosemide [Lasix] 40 mg IV NOW STA
12/11/24 18:43
US Legs, Bilateral [US Periph Venous LOWER Ext Bc] Urgent
Comment:
Reason For Exam: leg swelling w pain
12/11/24 19:39
Admit/Transfer Patient As Directed
Co-Sign Provider:
Level of Care: Inpatient admission
Assign to:: Telemetry
Physician / Group: Juvenal
Diagnosis: CHF
Reason for Telemetry: Subacute Heart Failure
Date to Stop Telemetry: 12/13/24
Time to Stop Telemetry: 11:00
Reason for Hospitalization: CHF
Expected length of stay greater than two midnights?: Yes
ELOS- Estimated Length of Stay in days: 2
I certify the patient meets the requirements for IP care: Yes
PRN Pain Medication Management As Directed
May give lesser potent ordered pain med per pt: Yes
preference::
Protocol:: Medication orders for pain may be administered in a
manner that supports deferring to patient preference
when the pt is:
- Requesting an ordered lesser potent pain medication.
Least to most potent pain medications are defined
as: acetaminophen < NSAID < tramadol < opioids
(morphine, oxycodone, hydromorphone).
- Requesting a lesser dose of the same medication IF
ORDERED.
- Requesting a less intrusive route of administration
if both routes are prescribed by the provider (PO <
IV).
12/11/24 19:40
Code Status As Directed
Resuscitation Status: Full Code
12/11/24 21:16
Acetaminophen [Tylenol] 650 mg PO Q4HPRN PRN
Albuterol Nebs [Ventolin Nebules] 2.5 mg INH R Q4HPRN PRN
Lorazepam [Ativan] 0.5 mg PO HS PRN Sleep
12/11/24 21:16
CARDIOLOGY CONSULT Routine
Consulting Provider: Shiva Mercado
Was physician already notified: Yes
Reason for consult: CHF
Activity As Directed
Activity Level: Ambulate
EKG with chest pain [ECG as needed] As Directed
ECG as needed for:: Chest Pain
I/O [Intake/ Output] As Directed
Frequency: Per unit guidelines
Vital Signs As Directed
Frequency: Per unit guidelines
Weight As Directed
Frequency: Daily
Oxygen Therapy [O2 Therapy] [RESP] Routine
Titrate/Wean O2 to maintain O2 sat greater than (%): 94
DX Deep Vein Thrombosis Video Routine
12/11/24 22:00
ARIPiprazole [Abilify] 5 mg PO HS
Trazodone [Desyrel] 150 mg PO HS
12/12/24 05:45
Troponin I Q6H
12/12/24 06:00
EKG [Electrocardiogram (*1)] IN AM
Reason for Study: Chest Pain
Basic Metabolic Panel IN AM
Cardiovascular Evaluation IN AM
Complete Blood Count/No Diff IN AM
12/12/24 08:00
Bupropion(12Hr)Sustain Release [WELLBUTRIN SR (12 hour sustained release)] 150 mg PO DAILY
Furosemide [Lasix] 60 mg IV BID AT 0800,1600
Metoprolol Xl [Toprol Xl] 12.5 mg PO DAILY
12/12/24 11:45
Troponin I Q6H
12/12/24 18:00
Enoxaparin Sodium [Lovenox] 40 mg SC QPM
12/13/24 11:00
DC Protocol for Telemetry ONCE
Abnormal Lab Results
12/11/24
17:46
RBC 3.62 L 10^6/uL
(4.20-5.40)
Hct 36.9 L %
(37.0-47.0)
MCV 101.9 H fL
(81.0-99.0)
MCH 34.3 H pg
(27.0-31.0)
Abs Immat Gran (auto) 0.1 H 10^3/uL
(0-0.05)
Immature Gran % 0.7 H %
(0-0.5)
Chloride 94 L mmol/L
(98-107)
Carbon Dioxide 35 H mmol/L
(22-30)
BUN 23 H mg/dl
(7-17)
Glucose 125 H mg/dl
(70-99)
12/11/24 17:46
12/11/24 17:46
Vital Signs
Initial and Last Documented VS:
Initial Vital Signs
Temp Pulse Resp BP Pulse Ox
98.6 F 106 16 126/69 99
12/11/24 16:06 12/11/24 16:06 12/11/24 16:06 12/11/24 16:06 12/11/24 16:06
Last Documented Vital Signs
Temp Pulse Resp BP Pulse Ox
97.5 F 94 20 143/72 95
12/12/24 03:16 12/12/24 03:16 12/12/24 03:16 12/12/24 03:16 12/12/24 03:16
MDM/Problems Addressed
MDM/Problems Addressed:
History and exam consistent with likely recurrent CHF exacerbation. Patient will be admitted for IV diuresis.
*Pulse Oximetry
SaO2: 99
Oxygen Mode of Delivery: Room air
Patient hypoxic: no
*Critical Care Note
Total Time (30-74mins, 75-104mins- exclusive of procedures): Not Applicable
ED Attending Note
-
Portions of this chart may have been created with voice recognition software.� Occasional wrong word or��sound alike� substitutions may have occurred due to the inherent limitations of voice recognition software.
Discharge Plan
Departure
Patient Disposition: Admit
Date of Disposition: 12/11/24
Time of Disposition: 18:49
Admit to: Telemetry
Presentation/result/management discussed w/ accepting MD/DO: Hospitalist
Discharge Problem:
Acute exacerbation of CHF (congestive heart failure)
Interventions
Interventions:
*Risk Screen - Suicide Last Done: 12/11/24 21:33
*General Assessment Last Done: 12/11/24 17:42
*Neglect/Abuse Screening Last Done: 12/11/24 16:08
*ED- Fall Risk Assessment Last Done: 12/11/24 17:42
*ED COVID-19 Vaccine History Last Done: 12/11/24 21:33
*Nursing Disposition Last Done: 12/11/24 21:14
ED- Pulmonary Assessment Last Done: 12/11/24 17:42
ED- Cardiac Assessment Last Done: 12/11/24 17:42
Discharge Date and Time
Discharge Date/Time: 12/11/24 21:14
[2024-12-11] MEDS: LASIX 40 MG IV (18:49)
--- NOTE | 2024-12-11 19:42 | HPS.HSE ---
Family Physician
-
Family Physician: PHYSICIAN PRIVATE
Chief Complaint
-
Weight Gain / SOB
History of Present Illness
Patient is a 54y F with PMH significant for HFpEF, COPD and obesity who presents to ED complaining of dyspnea with activity and persistent weight gain. Patient was seen by her Area Field Manager in the office today (Dr. Dumont) and sent to the ED for
admission given increasing weight gain over the past several visits. Patient states that she has appreciated increasing LE edema, dyspnea with activity and orthopnea for a couple of months. She states that she takes Lasix 40mg BID and has not
changed this dose in some time.
At an office visit on October 08, it was recommended that she increase her Lasix to 60mg BID.
She had cardiac cath October 16 with noted elevated R sided pressures. Post-cath recommendation was for Lasix 80mg BID.
It is not clear that patient actually deviated from her 40mg BID dosing at any point, despite these recommendations.
Medical History
Past Medical History
Past Medical History: Reports Other
Additional Past Medical History:
Chronic HFpEF
Hypertension
COPD
Bipolar Depression
Migraine Headaches
Morbid Obesity
Past Surgical History: Reports Other
Additional Past Surgical History:
T&A
Social History
Tobacco: Former Smoker (Quit smoking cigarettes 3 years ago. Now uses vape occasionally.)
Alcohol: None
Drug: None
Family History
Family History: Not pertinent
Allergies / Home Medications
Allergies reflects when Allergies were last updated in [facility].
Home Medications with original date entered in [facility]
Allergy/Medication List:
Allergies
Allergy/AdvReac Type Severity Reaction Status Date / Time
No Known Allergies Allergy Verified 10/16/24 09:02
Home Medications
bupropion HCl 150 mg tablet,12 hr sustained-release 150 mg PO DAILY Depression 07/09/21
trazodone 150 mg tablet 150 mg PO HS Sleep 10/03/22
albuterol sulfate 90 mcg/actuation aerosol inhaler 2 puff inhalation R Q6HPRN PRN sob 03/25/24
aripiprazole 5 mg tablet 5 mg PO HS Mental Health/Anxiety 03/25/24
sumatriptan succinate 6 mg/0.5 mL subcutaneous solution 6 mg SC DAILYPRN PRN migraine 03/25/24
fluticasone fur. 100 mcg-umeclid 62.5 mcg-vilant 25 mcg inhalat.powder (Trelegy Ellipta) 1 inh inhalation DAILY 12/11/24
furosemide 40 mg tablet 40 mg PO BID 12/11/24
lorazepam 0.5 mg tablet 0.5 mg PO HS PRN Sleep 12/11/24
metoprolol succinate 25 mg tablet,extended release 24 hr 12.5 mg PO DAILY Heart Disease/Condition 12/11/24
Review of Systems
-
History Source: Patient
A 12 point ROS was completed and negative except as noted: Yes
Constitutional: Reports Weight Gain and Fatigue; Denies Fever or Chills
Respiratory: Reports Trouble Breathing; Denies Cough
Cardiac: Denies Chest Pain or Palpitations
Abdomen/GI: Denies Abdominal Pain, Nausea, Vomiting or Diarrhea
: Denies Dysuria or Flank Pain
Musculoskeletal: Reports Edema; Denies Joint Pain
Neurological: Denies Dizzy or Headache
Psych: Denies Depression or Anxiety
Physical Exam
Vital Signs
Vital Signs
Temp Pulse Resp BP Pulse Ox
98.6 F 102 23 124/97 99
12/11/24 16:06 12/11/24 19:03 12/11/24 19:03 12/11/24 18:49 12/11/24 18:43
Physical Exam
General: Other (54y F in no acute distress.)
HEENT: Other (Thick neck. No appreciable JVD.)
Respiratory: Clear; No Wheezes, Rales or Rhonchi
Cardiac: S1/S2 and Regular Rhythm; No Murmur
GI: Soft, Non Tender, Non Distended and Normal Bowel Sounds
Musculoskeletal: No Clubbing, No Cyanosis and Other (Brawny, pitting edema b/l LEs to the distal thighs. )
Neuro: AO x 3
Laboratory Results
-
12/11/24 17:46
12/11/24 17:46
Laboratory Results
Total Bilirubin 0.7 mg/dl (0.2-1.3) 12/11/24 17:46
AST 34 U/L (14-36) 12/11/24 17:46
ALT 25 U/L (0-35) 12/11/24 17:46
Alkaline Phosphatase 75 U/L (38-126) 12/11/24 17:46
Troponin I < 0.012 ng/ml 12/11/24 17:46
Impression/Plan
-
A/P: Patient is a 54y F with PMH significant for CHF, COPD and bipolar disorder who presents to ED from her Area Field Manager's office for evaluation of 2 months of progressive weight gain and exertional dyspnea.
Subacute on Chronic HFpEF
- Admit for further evaluation and treatment.
- Weight increase of 7kg in 2 months and 13kg in 4 months.
- ? if patient actually changed Lasix dosing as directed as an outpatient?
- IV Lasix 60mg IV BID for now.
- Follow I/Os, daily weights, etc.
- Update Echo - last in 03/2024 with LVEF = 55%.
- Cath done 10/16/24 with non-obstructive coronary disease and elevated filling pressures.
- Cardiology consulted for additional recommendations.
Benign Hypertension
- IV diuresis as noted above.
- Adjust med regimen / GDMT as BP tolerates.
COPD without Acute Exacerbation
- No wheezing on exam.
- Continue Trelegy. Albuterol PRN.
Bipolar Disorder
- Stable. Continue current psychotropic medication regimen.
Morbid Obesity due to excess calories
- Affects all aspects of care.
- Encourage healthy diet and increased activity with goal of weight loss.
DVT Prophylaxis: Lovenox
Code Status: Full
[2024-12-11 20:34] VITALS: BP 136/74
[2024-12-11 21:29] VITALS: BP 133/91; BMI 39.4
[2024-12-11 21:44] VITALS: BMI 39.4
[2024-12-11] MEDS: ABILIFY 5 MG PO (22:02)
[2024-12-11] MEDS: ATIVAN 0.5 MG PO (22:02)
[2024-12-11] MEDS: DESYREL 150 MG PO (22:02)
[2024-12-11 23:21] VITALS: BP 118/57
--- NOTE | 2024-12-11 23:36 | PTCARENOTE ---
received pt from ED at 2130. pt ambulated from stretcher to bed. pt offers no current complaints. call reddy within reach, plan of care ongoing.
[2024-12-12] VITALS (7 sets, daily range): BP systolic 110–143; BP diastolic 54–88; BMI 39.3
[2024-12-12 00:51] LABS: Troponin I < 0.012 ng/ml
[2024-12-12] MEDS: SPIRIVA RESPIMAT 2.5 MCG 2 PUFF INH (07:17)
[2024-12-12] MEDS: SYMBICORT 80/4.5 MCG INHALER 2 PUFF INH ×2 (07:17→19:17)
[2024-12-12 08:01] LABS: Troponin I < 0.012 ng/ml
[2024-12-12 08:09] LABS: Blood Urea Nitrogen 26 mg/dl (7-17); Calcium 9.0 mg/dl (8.4-10.2); Carbon Dioxide 31 mmol/L (22-30); Chloride 99 mmol/L (98-107); Estimated Creatinine Clearance 122 ml/min; Glucose 116 mg/dl (70-99); HDL Cholesterol 64 mg/dl; LDL Cholesterol, Calculated 89 mg/dl; Potassium 3.6 mmol/L (3.5-5.1); Sodium 137 mmol/L (135-145); Very Low Density Lipoprotein 14 mg/dl (0-30); eGFR > 60.00
--- NOTE | 2024-12-12 08:31 | CON.CAR ---
Addendum entered and electronically signed by Heike Agarwal DO 12/12/24 16:10:
I saw and examined the patient.
The Coconut Cooker's note was reviewed and I agree with the note.
Comment: Patient was seen and examined. Patient is a 54-year-old female with past medical history of chronic left bundle branch block, recovered nonischemic cardiomyopathy, hypertension, COPD, anxiety/depression who presented to [facility] ED 12/11/2024
after being seen in outpatient cardiology office with worsening dyspnea on exertion, 30 lbs weight gain despite increasing outpatient diuretics after patient was found to have elevated right and left sided pressures on cardiac catheterization August
and October 2024. She presented back to the ED with worsening shortness of breath and edema. Initial proBNP 213. Troponins negative. She received Lasix IV 40 mg in the emergency department. Overall feeling better after IV Lasix. She had her lunch
tray which included Lays potato chips. She also admitted to dietary indiscretion and high salt meals prior to this admission.
General: No acute distress, AAOX3
Heart: Regular, positive S1/S2, 2/6 SM
Lungs: CTA b/l, negative wheezes/rales/rhonchi
Abd: Positive BS, NT/ND, neg rebound/rigidity/guarding
Ext:++ edema
Neuro: nonfocal
Plan:
Right and left heart catheterization 10/16/2024: HEMODYNAMICS : mmHg:RA (m) : 20; RV (s/d) : 56/15; PA (s/d, m) : 53/29, 38; PCWP (m) : 35 with large V waves; AO (s/d, m) : 150/82, 108; LV (s/d) : 148/21; LVEDP : 43
Estimated Leidy Cardiac Output: 5.2 L / min and Cardiac Index: 2.4 L/ min / m-2; Systemic vascular resistance: 16.9 Wood units or 1354 cqhkr-lxl-dd(-5); Pulmonary vascular resistance: 0.6 Wood units or 46 qdtvs-wux-fe(-5)
LM: NL. LAD patent. Circumflex: Patent. RCA: Patent L VG 60% with no regional wall motion abnormalities
Right heart cath 08/07/2024:Hemodynamics (mmHg): RA (m) : 18; RV (s/d,m) : 49/21; PA (s/d, m) : 50/29; PCWP (m) : 26; PA saturation: 58.7% on room air; AO saturation: 96.0% on room air; RA saturation: 57.2% on room air; Cardiac Output : 5.1 L/min by
Leidy calculation; Cardiac Index : 2.3 L/min/m-2 by Leidy calculation; Systemic vascular resistance: 894 dsc^(-5; Pulmonary vascular resistance: 2.54 tavares unit
Echo 03/26/2024: Technically difficult study, Definity used, EF 50 to 55%, mild concentric LVH, paradoxical septal motion consistent with left bundle branch block, mild MAC, mild MR, no significant change compared to prior
Plan:
-Presented 12/11/2024 with heart failure with preserved ejection fraction in the setting of dietary indiscretion
- proBNP consistently low despite patient having elevated left and right heart filling pressures on cardiac catheterization in August and October.
- Ongoing IV diuresis with Lasix 60 mg twice daily.
- Monitor renal function and electrolytes
- K+ 3.7 Replete potassium, creatinine stable at 0.7
- Echo ordered. EF was 60% on catheterization in October 2024
-Will change diet to low-sodium
-Heart failure education
-Suspect sleep apnea or obesity hypoventilation syndrome is contributing to symptoms however patient has declined outpatient sleep study with her crap shooter
- History of severe COPD and possible restrictive lung disease.
-Continue nebulizers/inhalers
-Follows routinely with Dr. Brown
- Lower extremity venous Doppler negative for DVT this admission
Original Note:
Consultation
Consultation Request
Date/Time Consultation Requested: 12/11/2024
Date/Time Consultation Performed: 12/12/2024
Requesting Provider: Dr. Sanford
Performing Provider: Sima Stark PA-C for Dr. ANUPAMA Minor
Reason for Consultation: Shortness of breath, weight gain
Medical History
-
History of Present Illness:
Patient is a 54-year-old female with past medical history of chronic left bundle branch block, recovered nonischemic cardiomyopathy, hypertension, COPD, anxiety/depression who presented to [facility] ED 12/11/2024 after being seen in outpatient cardiology
office with worsening dyspnea on exertion, 30 lbs weight gain despite increasing outpatient diuretics after patient was found to have elevated right and left sided pressures on cardiac catheterization August and October 2024. On admission to ER chest
x-ray showed no acute cardiopulmonary abnormality with stable nodular opacities in bilateral upper lobes. proBNP of 213. Troponin was negative x 2. She was provided 40 mg IV Lasix in emergency department.
At time of this evaluation patient resting comfortably in bed on room air. Reports edema has improved overnight.
[facility]:
Recovered nonischemic cardiomyopathy
Chronic heart failure with preserved ejection fraction
Chronic left bundle branch block
Nonobstructive coronary artery disease
Hypertension
Severe COPD with possible restrictive lung disease
Lung nodules
Anxiety/depression
History of migraines
History of alcohol abuse
Former smoker
Past Medical History
Past Medical History: Other (in HPI)
Social History
Tobacco: Former Smoker
Alcohol: Occasional
Family History
Family History: Reviewed & Not Pertinent
Allergies / Home Medications
Allergy/AdvReac Type Severity Reaction Status Date / Time
No Known Allergies Allergy Verified 10/16/24 09:02
�Medication �Instructions �Recorded �Confirmed �Type
bupropion HCl 150 mg tablet,12 hr 150 mg PO DAILY Depression 07/09/21 12/11/24 History
sustained-release
trazodone 150 mg tablet 150 mg PO HS Sleep 10/03/22 12/11/24 History
albuterol sulfate 90 mcg/actuation 2 puff inhalation R Q6HPRN PRN sob 03/25/24 12/11/24 History
aerosol inhaler
aripiprazole 5 mg tablet 5 mg PO HS Mental Health/Anxiety 03/25/24 12/11/24 History
sumatriptan succinate 6 mg/0.5 mL 6 mg SC DAILYPRN PRN migraine 03/25/24 12/11/24 History
subcutaneous solution
fluticasone fur. 100 mcg-umeclid 1 inh inhalation DAILY 12/11/24 12/11/24 History
62.5 mcg-vilant 25 mcg
inhalat.powder (Trelegy Ellipta)
furosemide 40 mg tablet 40 mg PO BID 12/11/24 12/11/24 History
lorazepam 0.5 mg tablet 0.5 mg PO HS PRN Sleep 12/11/24 12/11/24 History
metoprolol succinate 25 mg 12.5 mg PO DAILY Heart 12/11/24 12/11/24 History
tablet,extended release 24 hr Disease/Condition
Review of Systems
-
History Source: Patient
All other systems: Negative unless noted
Physical Exam
Vital Signs
Temp Pulse Resp BP Pulse Ox
97.5 F 74 16 143/72 94
12/12/24 03:16 12/12/24 07:26 12/12/24 07:26 12/12/24 03:16 12/12/24 07:26
Lab Results
12/12/24 07:07
Troponin I < 0.012 ng/ml 12/12/24 07:07
Sue-E-Upqefwujqlj Pept 213 pg/ml 12/11/24 17:46
Impression / Plan
-
PCP: Angeli Gunn
Primary Security System Engineer: Dr. Dumont
Impression:
Presented 12/11/2024 with progressively worsening shortness of breath, weight gain
Acute on chronic heart failure with preserved ejection fraction
Recovered nonischemic cardiomyopathy
Chronic heart failure with preserved ejection fraction
Chronic left bundle branch block
Hypertension
Severe COPD with possible restrictive lung disease
Lung nodules
Anxiety/depression
History of migraines
History of alcohol abuse
Former smoker
Right and left heart catheterization 10/16/2024: HEMODYNAMICS : mmHg:RA (m) : 20; RV (s/d) : 56/15; PA (s/d, m) : 53/29, 38; PCWP (m) : 35 with large V waves; AO (s/d, m) : 150/82, 108; LV (s/d) : 148/21; LVEDP : 43
Estimated Leidy Cardiac Output: 5.2 L / min and Cardiac Index: 2.4 L/ min / m-2; Systemic vascular resistance: 16.9 Wood units or 1354 ukuxj-zcp-pe(-5); Pulmonary vascular resistance: 0.6 Wood units or 46 hguym-rhr-tp(-5)
LM: NL. LAD patent. Circumflex: Patent. RCA: Patent L VG 60% with no regional wall motion abnormalities
Right heart cath 08/07/2024:Hemodynamics (mmHg): RA (m) : 18; RV (s/d,m) : 49/21; PA (s/d, m) : 50/29; PCWP (m) : 26; PA saturation: 58.7% on room air; AO saturation: 96.0% on room air; RA saturation: 57.2% on room air; Cardiac Output : 5.1 L/min by
Leidy calculation; Cardiac Index : 2.3 L/min/m-2 by Leidy calculation; Systemic vascular resistance: 894 dsc^(-5; Pulmonary vascular resistance: 2.54 tavares unit
Echo 03/26/2024: Technically difficult study, Definity used, EF 50 to 55%, mild concentric LVH, paradoxical septal motion consistent with left bundle branch block, mild MAC, mild MR, no significant change compared to prior
Plan:
-Presented 12/11/2024 with progressively worsening shortness of breath, weight gain, edema
-Acute on chronic heart failure with preserved ejection fraction with 30 pound weight gain in 3 months despite up titration of outpatient diuretic.
- proBNP consistently low despite patient having elevated left and right heart filling pressures on cardiac catheterization in August and October.
- Ongoing IV diuresis with Lasix 60 mg twice daily. As outpatient Lasix had been uptitrated to 60 mg twice a day although unclear if patient was taking that high of a dose as she is limited historian
- Monitor renal function and electrolytes
- K+ 3.7 Replete potassium, creatinine stable at 0.7
- Echo ordered. EF was 60% on catheterization in October 2024
- History of severe COPD and possible restrictive lung disease. Continue nebulizers/inhalers
- Lower extremity venous Doppler negative for DVT this admission
- Continue Toprol for history of recovered cardiomyopathy. Taken off NATHAN inhibitor secondary to hypotension and renal insufficiency
HPI 12/12/2024:
Patient is a 54-year-old female with past medical history of chronic left bundle branch block, recovered nonischemic cardiomyopathy, hypertension, COPD, anxiety/depression who presented to [facility] ED 12/11/2024 after being seen in outpatient cardiology
office with worsening dyspnea on exertion, 30 lbs weight gain despite increasing outpatient diuretics after patient was found to have elevated right and left sided pressures on cardiac catheterization August and October 2024. On admission to ER chest
x-ray showed no acute cardiopulmonary abnormality with stable nodular opacities in bilateral upper lobes. proBNP of 213. Troponin was negative x 2. She was provided 40 mg IV Lasix in emergency department.
At time of this evaluation patient resting comfortably in bed on room air. Reports edema has improved overnight.
Data Reviewed
-
EKG: Report Reviewed by me, Discussed with Physician, Discussed with Nurse and Discussed with Patient
Radiology: Report Reviewed by me, Discussed with Physician, Discussed with Nurse and Discussed with Patient
Labs: Labs Reviewed by me, Discussed with Physician, Discussed with Nurse, Discussed with Patient and Discussed with Family
Old Records: Reviewed
[2024-12-12] MEDS: TOPROL XL 12.5 MG PO (09:03)
[2024-12-12] MEDS: LASIX 60 MG IV ×2 (09:04→16:03)
[2024-12-12] MEDS: WELLBUTRIN SR (12 hour sustained release) 150 MG PO (09:04)
[2024-12-12] MEDS: KCL 40 MEQ PO (09:06)
--- NOTE | 2024-12-12 10:37 | W.PN.HOSP.TC ---
Today's Communication/Plan
-
continue diuresis
appreciate Cardiology
Assessment / Plan
Assessment / Plan
A/P: Patient is a 54y F with PMH significant for CHF, COPD and bipolar disorder who presents to ED from her Ceiling Cleaner's office for evaluation of 2 months of progressive weight gain and exertional dyspnea.
Subacute on Chronic HFpEF
- Admit for further evaluation and treatment.
- Weight increase of 7kg in 2 months and 13kg in 4 months.
- ? if patient actually changed Lasix dosing as directed as an outpatient?
- IV Lasix 60mg IV BID
- Follow I/Os, daily weights, etc.
- Update Echo - last in 03/2024 with LVEF = 55%.
- Cath done 10/16/24 with non-obstructive coronary disease and elevated filling pressures.
- Cardiology consult appreicated
Benign Hypertension
- IV diuresis as noted above.
- Adjust med regimen / GDMT as BP tolerates.
COPD without Acute Exacerbation
- No wheezing on exam.
- Continue Trelegy. Albuterol PRN.
Bipolar Disorder
- Stable. Continue current psychotropic medication regimen.
Morbid Obesity due to excess calories
- Affects all aspects of care.
- Encourage healthy diet and increased activity with goal of weight loss.
DVT Prophylaxis: Lovenox
Code Status: Full
Anticipated Discharge: 24 - 48 hours
Subjective/Interval History
-
Date of Service: December 12, 2024
starting to urinate more this morning
no chest pain
Objective Data
-
Labs:
Laboratory Results
12/12/24
07:07
WBC Pending
Hgb Pending
Hct Pending
Plt Count Pending
Sodium 137
Potassium 3.6
Chloride 99
Carbon Dioxide 31 H
BUN 26 H
Creatinine 0.7
Glucose 116 H
Calcium 9.0
Vital Signs:
Vital Signs
Temp Pulse Resp BP Pulse Ox
97.6 F 93 16 139/68 94
12/12/24 07:25 12/12/24 09:03 12/12/24 07:26 12/12/24 09:03 12/12/24 07:26
I&O
12/11/24 12/12/24 12/13/24
06:59 06:59 06:59
Intake Total 480 / 480
Balance 480 / 480
Review of Systems
-
History Source: Patient
All other systems: Reviewed and negative
Physical Exam
-
General: Well Developed, Well Nourished and No Apparent Distress
HEENT: Normocephalic, Atraumatic and Moist Mucous Membranes
Respiratory: Rales; Negative Wheezes
Cardiac: Regular Rhythm and S1/S2
GI: Soft, Nontender and Nondistended
Musculoskeletal: Edema, Right Lower Extrem and Edema, Left Lower Extrem
Skin: Warm, Dry and Rash
Neuro: Awake, Alert and Oriented
Psych: Calm
Data Reviewed
-
Diagnostic Radiology: Report Reviewed by me
Labs: Labs Reviewed by me
[2024-12-12] MEDS: ATIVAN 0.5 MG PO ×2 (11:20→20:51)
[2024-12-12] MEDS: TYLENOL 650 MG PO ×2 (11:22→20:50)
--- NOTE | 2024-12-12 12:02 | CM ---
Initial Assessment Completed by MARIMAR Turcios
Patient lives in a Apartment alone with 5 steps to enter and all amenities on one level. Patient uses no DME devices to ambulate, but uses a nebulizer for respiratory treatment. Patient has not used Home Care services no been to Acute or SNF.
PCP: Dr. Shiva Mercado and uses [facility] in [place]. Patient has transportation home and has no other needs at this time.
PLAN: Likely discharge home with no needs. NO IMM needed based on insurance plan
[2024-12-12 12:18] LABS: Hematocrit 36.6 % (37.0-47.0); Hemoglobin 12.1 g/dL (12.0-16.0); Mean Corp Hgb Conc. 33.1 g/dL (33.0-37.0); Mean Corpuscular Volume 101.1 fL (81.0-99.0); Nucleated Red Blood Cells % 0 %; Platelet Count 261 10^3/uL (130-400); Red Cell Dist. Width 13.1 % (11.5-14.5)
[2024-12-12 13:23] LABS: Glycohemoglobin (HgbA1c) 5.3 % (4.0-5.6)
--- NOTE | 2024-12-12 15:05 | CARDSERVLU ---
Echocardiogram with Lumason completed after protocol screening completed. Allergies verified.
Patent IV site: __Right forearm___
IV site flushed with 0.9% NaCl pre and post administration.
Diluted bolus method utilized to enhance visualization of ventricular rivera.
Total volume given: __2.5__ mL
Patient tolerated all procedures well without complications.
[2024-12-12] MEDS: LOVENOX 40 MG SC (17:25)
[2024-12-12] MEDS: DESYREL 150 MG PO (20:51)
[2024-12-12] MEDS: ABILIFY 5 MG PO (20:51)
[2024-12-13] VITALS (7 sets, daily range): BP systolic 109–128; BP diastolic 69–81; BMI 39.3
[2024-12-13] MEDS: SPIRIVA RESPIMAT 2.5 MCG 2 PUFF INH (07:31)
[2024-12-13] MEDS: SYMBICORT 80/4.5 MCG INHALER 2 PUFF INH ×2 (07:31→19:48)
[2024-12-13 08:08] LABS: Blood Urea Nitrogen 26 mg/dl (7-17); Calcium 9.5 mg/dl (8.4-10.2); Carbon Dioxide 37 mmol/L (22-30); Chloride 94 mmol/L (98-107); Estimated Creatinine Clearance 85 ml/min; Glucose 124 mg/dl (70-99); Magnesium 1.7 mg/dl (1.6-2.3); Potassium 4.0 mmol/L (3.5-5.1); Sodium 137 mmol/L (135-145); eGFR > 60.00
[2024-12-13] MEDS: TOPROL XL 12.5 MG PO (08:25)
[2024-12-13] MEDS: WELLBUTRIN SR (12 hour sustained release) 150 MG PO (08:25)
[2024-12-13] MEDS: LASIX 60 MG IV ×2 (08:27→16:46)
[2024-12-13] MEDS: ATIVAN 0.5 MG PO ×2 (08:34→21:20)
--- NOTE | 2024-12-13 11:00 | W.PN.CARDCBS ---
Addendum entered and electronically signed by Lamonte Evans MD 12/13/24 12:33:
Patient seen and examined
Agree with KLAUDIA Graf's note and assessment
Agree with KLAUDIA Graf's plan
Exam:
HEENT normocephalic atraumatic
JVP is 7
Rales at bases
Cor regular without murmur rub or gallop
Abdomen soft nontender
Chronic venous stasis changes with 1+ edema to mid calf
Pertinent x 3
Nonfocal neurologically
Impression:
Presented 12/11/2024 with progressively worsening shortness of breath, weight gain
Acute on chronic heart failure with preserved ejection fraction
Recovered nonischemic cardiomyopathy
Chronic heart failure with preserved ejection fraction
Chronic left bundle branch block
Hypertension
Severe COPD with possible restrictive lung disease
Lung nodules
Anxiety/depression
History of migraines
History of alcohol abuse
Former smoker
Right and left heart catheterization 10/16/2024: HEMODYNAMICS : mmHg:RA (m) : 20; RV (s/d) : 56/15; PA (s/d, m) : 53/29, 38; PCWP (m) : 35 with large V waves; AO (s/d, m) : 150/82, 108; LV (s/d) : 148/21; LVEDP : 43
Estimated Leidy Cardiac Output: 5.2 L / min and Cardiac Index: 2.4 L/ min / m-2; Systemic vascular resistance: 16.9 Wood units or 1354 [id number]-jrn-ja(-5); Pulmonary vascular resistance: 0.6 Wood units or 46 rcies-qbw-yt(-5)
LM: NL. LAD patent. Circumflex: Patent. RCA: Patent L VG 60% with no regional wall motion abnormalities
Right heart cath 08/07/2024:Hemodynamics (mmHg): RA (m) : 18; RV (s/d,m) : 49/21; PA (s/d, m) : 50/29; PCWP (m) : 26; PA saturation: 58.7% on room air; AO saturation: 96.0% on room air; RA saturation: 57.2% on room air; Cardiac Output : 5.1 L/min by
Leidy calculation; Cardiac Index : 2.3 L/min/m-2 by Leidy calculation; Systemic vascular resistance: 894 dsc^(-5; Pulmonary vascular resistance: 2.54 tavares unit
Echo 03/26/2024: Technically difficult study, Definity used, EF 50 to 55%, mild concentric LVH, paradoxical septal motion consistent with left bundle branch block, mild MAC, mild MR, no significant change compared to prior
Plan:
-Presented 12/11/2024 with progressively worsening shortness of breath, weight gain, edema
-Acute on chronic heart failure with preserved ejection fraction with 30 pound weight gain in 3 months despite up titration of outpatient diuretic.
-Continue IV diuresis with 60 mg twice daily. Patient reports good urine output. Creatinine bumped slightly to 1.0, will continue to monitor with ongoing diuresis
-Echo with EF 62% and trivial pericardial effusion 12/12/2024
-Tubigrip stockings ordered. Peripheral ultrasound was negative for DVT this admission
-could consider addition of SGLT2 inhibitor if cost not prohibitive
-Also with history of severe COPD and possible restrictive lung disease. Continue nebulizers/inhalers
-Continue Toprol for history of recovered cardiomyopathy. Taken off NATHAN inhibitor previously secondary to hypotension and renal insufficiency
Original Note:
Today's Communication / Plan
-
continue IV diuresis
follow Cr
tubigrip stockings
CHF education
consider for SGLT2 inhibitor if cost affordable
Impression / Plan
-
PCP: Angeli Gunn
Primary Procurement Analyst: Dr. Dumont
Impression:
Presented 12/11/2024 with progressively worsening shortness of breath, weight gain
Acute on chronic heart failure with preserved ejection fraction
Recovered nonischemic cardiomyopathy
Chronic heart failure with preserved ejection fraction
Chronic left bundle branch block
Hypertension
Severe COPD with possible restrictive lung disease
Lung nodules
Anxiety/depression
History of migraines
History of alcohol abuse
Former smoker
Right and left heart catheterization 10/16/2024: HEMODYNAMICS : mmHg:RA (m) : 20; RV (s/d) : 56/15; PA (s/d, m) : 53/29, 38; PCWP (m) : 35 with large V waves; AO (s/d, m) : 150/82, 108; LV (s/d) : 148/21; LVEDP : 43
Estimated Leidy Cardiac Output: 5.2 L / min and Cardiac Index: 2.4 L/ min / m-2; Systemic vascular resistance: 16.9 Wood units or 1354 quhfq-tzn-vm(-5); Pulmonary vascular resistance: 0.6 Wood units or 46 ldlqn-geu-wx(-5)
LM: NL. LAD patent. Circumflex: Patent. RCA: Patent L VG 60% with no regional wall motion abnormalities
Right heart cath 08/07/2024:Hemodynamics (mmHg): RA (m) : 18; RV (s/d,m) : 49/21; PA (s/d, m) : 50/29; PCWP (m) : 26; PA saturation: 58.7% on room air; AO saturation: 96.0% on room air; RA saturation: 57.2% on room air; Cardiac Output : 5.1 L/min by
Leidy calculation; Cardiac Index : 2.3 L/min/m-2 by Leidy calculation; Systemic vascular resistance: 894 dsc^(-5; Pulmonary vascular resistance: 2.54 tavares unit
Echo 03/26/2024: Technically difficult study, Definity used, EF 50 to 55%, mild concentric LVH, paradoxical septal motion consistent with left bundle branch block, mild MAC, mild MR, no significant change compared to prior
Plan:
-Presented 12/11/2024 with progressively worsening shortness of breath, weight gain, edema
-Acute on chronic heart failure with preserved ejection fraction with 30 pound weight gain in 3 months despite up titration of outpatient diuretic.
-Continue IV diuresis with 60 mg twice daily. Patient reports good urine output. Creatinine bumped slightly to 1.0, will continue to monitor with ongoing diuresis
-Echo with EF 62% and trivial pericardial effusion 12/12/2024
-Tubigrip stockings ordered. Peripheral ultrasound was negative for DVT this admission
-could consider addition of SGLT2 inhibitor if cost not prohibitive
-Also with history of severe COPD and possible restrictive lung disease. Continue nebulizers/inhalers
-Continue Toprol for history of recovered cardiomyopathy. Taken off NATHAN inhibitor previously secondary to hypotension and renal insufficiency
HPI 12/12/2024:
Patient is a 54-year-old female with past medical history of chronic left bundle branch block, recovered nonischemic cardiomyopathy, hypertension, COPD, anxiety/depression who presented to [facility] ED 12/11/2024 after being seen in outpatient cardiology
office with worsening dyspnea on exertion, 30 lbs weight gain despite increasing outpatient diuretics after patient was found to have elevated right and left sided pressures on cardiac catheterization August and October 2024. On admission to ER chest
x-ray showed no acute cardiopulmonary abnormality with stable nodular opacities in bilateral upper lobes. proBNP of 213. Troponin was negative x 2. She was provided 40 mg IV Lasix in emergency department.
At time of this evaluation patient resting comfortably in bed on room air. Reports edema has improved overnight.
Progress Note - Procurement Analyst
Subjective
Date of Service: December 13, 2024
Reports breathing is improving, however remains above her normal weight
Objective
Labs:
12/12/24 12:06
12/13/24 06:58
Labs
Hgb 12.1 g/dL (12.0-16.0) 12/12/24 12:06
Hct 36.6 % (37.0-47.0) L 12/12/24 12:06
Plt Count 261 10^3/uL (130-400) 12/12/24 12:06
Sodium 137 mmol/L (135-145) 12/13/24 06:58
Potassium 4.0 mmol/L (3.5-5.1) 12/13/24 06:58
BUN 26 mg/dl (7-17) H 12/13/24 06:58
Creatinine 1.0 mg/dL (0.6-1.0) 12/13/24 06:58
Glucose 124 mg/dl (70-99) H 12/13/24 06:58
Troponins
12/11/24 12/11/24 12/11/24
17:46 21:16 23:51
Troponin I < 0.012 Cancelled < 0.012
12/12/24 12/12/24
07:07 11:45
Troponin I < 0.012 Cancelled
Vital Signs and I&O:
Vital Signs
Temp Pulse Resp BP Pulse Ox
98.2 F 78 14 114/77 95
12/13/24 07:16 12/13/24 08:27 12/13/24 07:34 12/13/24 08:27 12/13/24 08:21
Vital Signs
Temp Pulse Resp BP Pulse Ox
98.2 F 78 14 114/77 95
12/13/24 07:16 12/13/24 08:27 12/13/24 07:34 12/13/24 08:27 12/13/24 08:21
Intake & Output
12/11/24 12/12/24 12/13/24 12/14/24
07:59 07:59 07:59 07:59
Intake Total 480 / 480 1200 / 1200
Output Total 1000 / 1000
Balance 480 / 480 200 / 200
Physical Exam
Physical Exam
GEN: No distress, awake, alert, oriented x3. Obese
HEENT: supple, anicteric, mmm
LUNGS: CTA BL, no wheezes/rales
CV: Reg, S1/S2, no murmur
ABD: soft, BS+, NT/ND
EXT: No cyanosis, clubbing. 3+ edema of B/L LE
NEURO: Gross non-focal
SKIN: Warm, pink, dry. No rash
--- NOTE | 2024-12-13 11:33 | CM ---
Met with patient at bedside to confirm prescription coverage plan; out of pocket cost for Farxiga 10 mg 30 day supply, one daily is $3.00
Plan: Discharge to home when medically stable. Patient reported if she cannot find someone to provide transport, she will take an UBER
--- NOTE | 2024-12-13 13:00 | W.PN.HOSP.TC ---
Today's Communication/Plan
-
diuresis
Assessment / Plan
Assessment / Plan
A/P: Patient is a 54y F with PMH significant for CHF, COPD and bipolar disorder who presents to ED from her [employer]er's office for evaluation of 2 months of progressive weight gain and exertional dyspnea.
Subacute on Chronic HFpEF
- Admit for further evaluation and treatment.
- Weight increase of 7kg in 2 months and 13kg in 4 months.
- IV Lasix 60mg IV BID - patient reports urinating more
- Follow I/Os, daily weights, etc.
- Update Echo - last in 03/2024 with LVEF = 55%.
- Cath done 10/16/24 with non-obstructive coronary disease and elevated filling pressures.
- Cardiology consult appreciated
Benign Hypertension
- IV diuresis as noted above.
- Adjust med regimen / GDMT as BP tolerates.
COPD without Acute Exacerbation
- No wheezing on exam.
- Continue Trelegy. Albuterol PRN.
Bipolar Disorder
- Stable. Continue current psychotropic medication regimen.
Morbid Obesity due to excess calories
- Affects all aspects of care.
- Encourage healthy diet and increased activity with goal of weight loss.
DVT Prophylaxis: Lovenox
Code Status: Full
Anticipated Discharge: 24 - 48 hours
Subjective/Interval History
-
Date of Service: December 13, 2024
feeling slightly better
Objective Data
-
Labs:
Laboratory Results
12/13/24
06:58
Sodium 137
Potassium 4.0
Chloride 94 L
Carbon Dioxide 37 H
BUN 26 H
Creatinine 1.0
Glucose 124 H
Calcium 9.5
Vital Signs:
Vital Signs
Temp Pulse Resp BP Pulse Ox
97.9 F 85 18 128/81 95
12/13/24 11:20 12/13/24 11:20 12/13/24 11:20 12/13/24 11:20 12/13/24 11:20
I&O
12/12/24 12/13/24 12/14/24
06:59 06:59 06:59
Intake Total 480 / 480 1200 / 1200
Output Total 1000 / 1000
Balance 480 / 480 200 / 200
Review of Systems
-
History Source: Patient
All other systems: Reviewed and negative
Physical Exam
-
General: Well Developed, Well Nourished and No Apparent Distress
HEENT: Normocephalic, Atraumatic and Moist Mucous Membranes
Respiratory: Rales; Negative Wheezes
Cardiac: Regular Rhythm and S1/S2
GI: Soft, Nontender and Nondistended
Musculoskeletal: Edema, Right Lower Extrem and Edema, Left Lower Extrem
Skin: Warm, Dry and Rash
Neuro: Awake, Alert and Oriented
Psych: Calm
Data Reviewed
-
Diagnostic Radiology: Report Reviewed by me
Labs: Labs Reviewed by me
--- NOTE | 2024-12-13 16:32 | PTCARENOTE ---
Pt AAO x3, sl anxious. OROZCO well, ambulatory in room, denies weakness/dizziness. VSS. Telemetry: NSR with BBC. On room air- pulse ox 94%, pt with slight HAMMER; states she feels 'much better than yesterday'. Abd obese, soft, ines PO well. Void sin
BR; pt reminded to void in specipan to monitor output. face flushed, afebrile; BLE reddened. Tubigrips intact to BLE. Resting in bed at present, no c/o. Will continue to monitor.
[2024-12-13] MEDS: FLUSH (NSS) 1 FLUSH IV (16:46)
[2024-12-13] MEDS: LOVENOX 40 MG SC (17:34)
[2024-12-13] MEDS: ABILIFY 5 MG PO (21:19)
[2024-12-13] MEDS: DESYREL 150 MG PO (21:20)
[2024-12-14 03:39] VITALS: BP 101/57
[2024-12-14 05:22] VITALS: BMI 39.5
[2024-12-14 06:51] VITALS: BP 121/79
[2024-12-14] MEDS: SYMBICORT 80/4.5 MCG INHALER 2 PUFF INH ×2 (07:16→19:55)
[2024-12-14] MEDS: SPIRIVA RESPIMAT 2.5 MCG 2 PUFF INH (07:16)
[2024-12-14] MEDS: TOPROL XL 12.5 MG PO (09:17)
[2024-12-14] MEDS: WELLBUTRIN SR (12 hour sustained release) 150 MG PO (09:18)
[2024-12-14] MEDS: TYLENOL 650 MG PO (09:46)
[2024-12-14] MEDS: ATIVAN 0.5 MG PO ×2 (09:46→21:42)
[2024-12-14 09:49] LABS: Blood Urea Nitrogen 26 mg/dl (7-17); Calcium 9.6 mg/dl (8.4-10.2); Carbon Dioxide 32 mmol/L (22-30); Chloride 96 mmol/L (98-107); Estimated Creatinine Clearance 107 ml/min; Glucose 114 mg/dl (70-99); Potassium 3.8 mmol/L (3.5-5.1); Sodium 136 mmol/L (135-145); eGFR > 60.00
[2024-12-14] MEDS: LASIX 60 MG IV ×2 (10:12→16:22)
--- NOTE | 2024-12-14 11:38 | W.PN.CARDCBS ---
Today's Communication / Plan
-
Continue IV diuresis another 1 to 2 days
Creatinine stable
Weight plateauing
Impression / Plan
-
PCP: Angeli Gunn
Primary Generation Technician: Dr. Dumont
Impression:
Presented 12/11/2024 with progressively worsening shortness of breath, weight gain
Acute on chronic heart failure with preserved ejection fraction
Recovered nonischemic cardiomyopathy
Chronic heart failure with preserved ejection fraction
Chronic left bundle branch block
Hypertension
Severe COPD with possible restrictive lung disease
Lung nodules
Anxiety/depression
History of migraines
History of alcohol abuse
Former smoker
Right and left heart catheterization 10/16/2024: HEMODYNAMICS : mmHg:RA (m) : 20; RV (s/d) : 56/15; PA (s/d, m) : 53/29, 38; PCWP (m) : 35 with large V waves; AO (s/d, m) : 150/82, 108; LV (s/d) : 148/21; LVEDP : 43
Estimated Leidy Cardiac Output: 5.2 L / min and Cardiac Index: 2.4 L/ min / m-2; Systemic vascular resistance: 16.9 Wood units or 1354 fedtj-ddt-qv(-5); Pulmonary vascular resistance: 0.6 Wood units or 46 mklas-tar-ml(-5)
LM: NL. LAD patent. Circumflex: Patent. RCA: Patent L VG 60% with no regional wall motion abnormalities
Right heart cath 08/07/2024:Hemodynamics (mmHg): RA (m) : 18; RV (s/d,m) : 49/21; PA (s/d, m) : 50/29; PCWP (m) : 26; PA saturation: 58.7% on room air; AO saturation: 96.0% on room air; RA saturation: 57.2% on room air; Cardiac Output : 5.1 L/min by
Leidy calculation; Cardiac Index : 2.3 L/min/m-2 by Leidy calculation; Systemic vascular resistance: 894 dsc^(-5; Pulmonary vascular resistance: 2.54 tavares unit
Echo 03/26/2024: Technically difficult study, Definity used, EF 50 to 55%, mild concentric LVH, paradoxical septal motion consistent with left bundle branch block, mild MAC, mild MR, no significant change compared to prior
Plan:
-Presented 12/11/2024 with progressively worsening shortness of breath, weight gain, edema
-Acute on chronic heart failure with preserved ejection fraction with 30 pound weight gain in 3 months despite up titration of outpatient diuretic.
-Continue IV diuresis with 60 mg twice daily. Patient reports good urine output. Creatinine stable. She appears to need another day or 2 of IV diuresis as her weights have plateaued at 117 kg
-Echo with EF 62% and trivial pericardial effusion 12/12/2024
-Tubigrip stockings ordered. Peripheral ultrasound was negative for DVT this admission
-could consider addition of SGLT2 inhibitor if cost not prohibitive
-Also with history of severe COPD and possible restrictive lung disease. Continue nebulizers/inhalers
-Continue Toprol for history of recovered cardiomyopathy. Taken off NATHAN inhibitor previously secondary to hypotension and renal insufficiency
HPI 12/12/2024:
Patient is a 54-year-old female with past medical history of chronic left bundle branch block, recovered nonischemic cardiomyopathy, hypertension, COPD, anxiety/depression who presented to [facility] ED 12/11/2024 after being seen in outpatient cardiology
office with worsening dyspnea on exertion, 30 lbs weight gain despite increasing outpatient diuretics after patient was found to have elevated right and left sided pressures on cardiac catheterization August and October 2024. On admission to ER chest
x-ray showed no acute cardiopulmonary abnormality with stable nodular opacities in bilateral upper lobes. proBNP of 213. Troponin was negative x 2. She was provided 40 mg IV Lasix in emergency department.
At time of this evaluation patient resting comfortably in bed on room air. Reports edema has improved overnight.
Progress Note - Generation Technician
Subjective
Date of Service: December 14, 2024
Breathing is about the same
Objective
Labs:
12/12/24 12:06
12/14/24 09:16
Labs
Hgb 12.1 g/dL (12.0-16.0) 12/12/24 12:06
Hct 36.6 % (37.0-47.0) L 12/12/24 12:06
Plt Count 261 10^3/uL (130-400) 12/12/24 12:06
Sodium 136 mmol/L (135-145) 12/14/24 09:16
Potassium 3.8 mmol/L (3.5-5.1) 12/14/24 09:16
BUN 26 mg/dl (7-17) H 12/14/24 09:16
Creatinine 0.8 mg/dL (0.6-1.0) 12/14/24 09:16
Glucose 114 mg/dl (70-99) H 12/14/24 09:16
Troponins
12/11/24 12/11/24 12/11/24
17:46 21:16 23:51
Troponin I < 0.012 Cancelled < 0.012
12/12/24 12/12/24
07:07 11:45
Troponin I < 0.012 Cancelled
Vital Signs and I&O:
Vital Signs
Temp Pulse Resp BP Pulse Ox
98.7 F 70 14 121/79 94
12/14/24 06:51 12/14/24 07:19 12/14/24 07:19 12/14/24 06:51 12/14/24 06:51
Vital Signs
Temp Pulse Resp BP Pulse Ox
98.7 F 70 14 121/79 94
12/14/24 06:51 12/14/24 07:19 12/14/24 07:19 12/14/24 06:51 12/14/24 06:51
Intake & Output
09/05/25 09/06/25 09/07/25 09/08/25
06:59 06:59 06:59 06:59
Intake Total 480 / 480 1200 / 1200 1440 / 1440
Output Total 1000 / 1000 650 / 650
Balance 480 / 480 200 / 200 790 / 790
Physical Exam
Physical Exam
����Physical Exam
���������������������General:��no apparent distress, not acutely ill
���������������������������Neck:��supple. no meningeal signs. normal psoterior pharynx
������������������������
���������������������������Heart:��s1/s2 regular rate and rhythm, no murmur. equal radial pulses.
��������������������������Lungs: ��no acute respiratory distress. clear bilaterally
����������������������Abdomen:�normal bowel sounds. not tender. no CVAT
��������������������������Neuro:��alert and oriented. no focal neurological deficits
������������������������������Skin: ��no rash
�����������������������Psychiatric:�well kept. interactive and cooperative
�����������������������Extremities:��no edema. no calf tenderness. negative homans. good distal pulses
��
�
[2024-12-14 11:40] VITALS: BP 122/79
--- NOTE | 2024-12-14 13:39 | W.PN.HOSP.TC ---
Today's Communication/Plan
-
diuresis
Assessment / Plan
Assessment / Plan
A/P: Patient is a 54y F with PMH significant for CHF, COPD and bipolar disorder who presents to ED from her [employer]'s office for evaluation of 2 months of progressive weight gain and exertional dyspnea.
TTE 12/12/24
SUMMARY
1. Left ventricular ejection fraction is normal with an ejection fraction of 62 % by Bazzi's biplane method of discs.
2. Mildly thickened. No mitral regurgitation.
3. Trivial pericardial effusion is noted.
Subacute on Chronic HFpEF
- Admit for further evaluation and treatment.
- Weight increase of 7kg in 2 months and 13kg in 4 months.
- IV Lasix 60mg IV BID - patient reports good urine output although weight not decreasing
- Follow I/Os, daily weights, etc.
- repeat TTE results above
- Cath done 10/16/24 with non-obstructive coronary disease and elevated filling pressures.
- Cardiology consult appreciated
Benign Hypertension
- IV diuresis as noted above.
- Adjust med regimen / GDMT as BP tolerates.
COPD without Acute Exacerbation
- No wheezing on exam.
- Continue Trelegy. Albuterol PRN.
Bipolar Disorder
- Stable. Continue current psychotropic medication regimen.
Morbid Obesity due to excess calories
- Affects all aspects of care.
- Encourage healthy diet and increased activity with goal of weight loss.
DVT Prophylaxis: Lovenox
Code Status: Full
Anticipated Discharge: 24 - 48 hours
Subjective/Interval History
-
Date of Service: December 14, 2024
continuing to urinate more and feeling better
Objective Data
-
Labs:
Laboratory Results
12/14/24 12/14/24
06:21 09:16
Sodium Cancelled 136
Potassium Cancelled 3.8
Chloride Cancelled 96 L
Carbon Dioxide Cancelled 32 H
BUN Cancelled 26 H
Creatinine Cancelled 0.8
Glucose Cancelled 114 H
Calcium Cancelled 9.6
Vital Signs:
Vital Signs
Temp Pulse Resp BP Pulse Ox
97.7 F 80 18 122/79 100
12/14/24 11:40 12/14/24 11:40 12/14/24 11:40 12/14/24 11:40 12/14/24 11:40
I&O
12/13/24 12/14/24 12/15/24
06:59 06:59 06:59
Intake Total 1200 / 1200 1440 / 1440
Output Total 1000 / 1000 650 / 650
Balance 200 / 200 790 / 790
Review of Systems
-
History Source: Patient
All other systems: Reviewed and negative
Physical Exam
-
General: Well Developed, Well Nourished and No Apparent Distress
HEENT: Normocephalic, Atraumatic and Moist Mucous Membranes
Respiratory: Rales; Negative Wheezes
Cardiac: Regular Rhythm and S1/S2
GI: Soft, Nontender and Nondistended
Musculoskeletal: Edema, Right Lower Extrem and Edema, Left Lower Extrem
Skin: Warm, Dry and Rash
Neuro: Awake, Alert and Oriented
Psych: Calm
Data Reviewed
-
Diagnostic Radiology: Report Reviewed by me
Labs: Labs Reviewed by me
[2024-12-14 15:03] VITALS: BP 122/86
[2024-12-14] MEDS: LOVENOX 40 MG SC (18:15)
[2024-12-14 19:00] VITALS: BP 109/68
[2024-12-14] MEDS: DESYREL 150 MG PO (21:42)
[2024-12-14] MEDS: ABILIFY 5 MG PO (21:42)
[2024-12-14 23:00] VITALS: BP 111/56
[2024-12-15 03:00] VITALS: BP 125/68
[2024-12-15 06:00] VITALS: BMI 39.2
[2024-12-15 07:25] VITALS: BP 146/84
[2024-12-15] MEDS: SPIRIVA RESPIMAT 2.5 MCG 2 PUFF INH (07:34)
[2024-12-15] MEDS: SYMBICORT 80/4.5 MCG INHALER 2 PUFF INH ×2 (07:34→19:26)
[2024-12-15] MEDS: LASIX 60 MG IV ×2 (08:57→16:42)
[2024-12-15] MEDS: FLUSH (NSS) 1 FLUSH IV ×2 (08:58→16:43)
[2024-12-15] MEDS: WELLBUTRIN SR (12 hour sustained release) 150 MG PO (08:58)
[2024-12-15] MEDS: TOPROL XL 12.5 MG PO (08:58)
[2024-12-15] MEDS: ATIVAN 0.5 MG PO ×2 (09:08→21:59)
--- NOTE | 2024-12-15 09:11 | W.PN.HOSP.TC ---
Today's Communication/Plan
-
see A/P
Assessment / Plan
Assessment / Plan
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
TTE 12/12/24
1. Left ventricular ejection fraction is normal with an ejection fraction of 62 % by Bazzi's biplane method of discs.
2. Mildly thickened. No mitral regurgitation.
3. Trivial pericardial effusion is noted.
A/P:
# Subacute on Chronic HFpEF
Cont IV Lasix 60mg IV BID - patient reports good urine output although weight not significantly decreasing
Follow I/Os, daily weights, etc.
repeat TTE results above
Cath done 10/16/24 with non-obstructive coronary disease and elevated filling pressures.
Cardiology input appreciated
# Benign Hypertension
IV diuresis as noted above.
Adjust med regimen / GDMT as BP tolerates.
# COPD without Acute Exacerbation
No wheezing on exam.
Continue Trelegy. Albuterol PRN.
# Bipolar Disorder
Stable. Continue current psychotropic medication regimen.
# Morbid Obesity due to excess calories, BMI 39
Affects all aspects of care.
Encourage healthy diet and increased activity with goal of weight loss.
DVT Prophylaxis: Lovenox
Code Status: Full
Anticipated Discharge: 24 - 48 hours
Subjective/Interval History
-
Date of Service: December 15, 2024
Objective Data
-
Labs:
Laboratory Results
12/15/24
08:40
WBC Pending
Hgb Pending
Hct Pending
Plt Count Pending
Sodium Pending
Potassium Pending
Chloride Pending
Carbon Dioxide Pending
BUN Pending
Creatinine Pending
Glucose Pending
Calcium Pending
Vital Signs:
Vital Signs
Temp Pulse Resp BP Pulse Ox
36.6 C 76 16 146/84 92
12/15/24 03:00 12/15/24 08:58 12/15/24 07:38 12/15/24 08:58 12/15/24 08:54
I&O
12/14/24 12/15/24 12/16/24
06:59 06:59 06:59
Intake Total 1440 / 1440 1800 / 1800
Output Total 650 / 650
Balance 790 / 790 1800 / 1800
Review of Systems
-
History Source: Patient
All other systems: Reviewed and negative
Respiratory: Denies Trouble Breathing
Physical Exam
-
General: Well Developed, Well Nourished, No Apparent Distress, Comfortable and Conversant
HEENT: Normocephalic, Atraumatic and Moist Mucous Membranes
Respiratory: Clear to Auscultation and Non Labored Respirations; Negative Wheezes, Rales, Crackles or Accessory Resp Muscle Use
Cardiac: Regular Rhythm and S1/S2
GI: Soft, Nontender and Nondistended
Musculoskeletal: Edema, Right Lower Extrem (much improved ) and Edema, Left Lower Extrem (much improved )
Skin: Warm and Dry
Neuro: Awake, Alert and Oriented
Psych: Calm and Intact Judgement/Insight
Data Reviewed
-
Labs: Labs Reviewed by me
[2024-12-15 09:30] LABS: Hematocrit 38.3 % (37.0-47.0); Hemoglobin 12.8 g/dL (12.0-16.0); Mean Corp Hgb Conc. 33.4 g/dL (33.0-37.0); Mean Corpuscular Volume 101.6 fL (81.0-99.0); Platelet Count 264 10^3/uL (130-400); Red Cell Dist. Width 13.1 % (11.5-14.5)
[2024-12-15 09:54] LABS: Blood Urea Nitrogen 28 mg/dl (7-17); Calcium 9.5 mg/dl (8.4-10.2); Carbon Dioxide 37 mmol/L (22-30); Chloride 92 mmol/L (98-107); Estimated Creatinine Clearance 95 ml/min; Glucose 114 mg/dl (70-99); Potassium 3.9 mmol/L (3.5-5.1); Sodium 135 mmol/L (135-145); eGFR > 60.00
--- NOTE | 2024-12-15 10:43 | W.PN.CARDCBS ---
Today's Communication / Plan
-
Continue IV diuresis with 60 mg twice daily. If her diuresis slows, could consider increasing diuretic dosing +/- adding metolazone
Her creatinine remained stable.
She was encouraged to use Tubigrip's.
Peripheral ultrasound negative for DVT this admission.
Echo reviewed with patient, her EF remains preserved with trivial pericardial effusion.
Continue Toprol for history of recovered cardiomyopathy.
Previously taken off NATHAN inhibitor secondary to hypotension and renal insufficiency.
Impression / Plan
-
.
PCP: Angeli Gunn
Primary Impregnator Helper: Dr. Dumont
Impression:
Presented 12/11/2024 with progressively worsening shortness of breath, weight gain
Acute on chronic heart failure with preserved ejection fraction
Recovered nonischemic cardiomyopathy
Chronic heart failure with preserved ejection fraction
Chronic left bundle branch block
Hypertension
Severe COPD with possible restrictive lung disease
Lung nodules
Anxiety/depression
History of migraines
History of alcohol abuse
Former smoker
Right and left heart catheterization 10/16/2024: HEMODYNAMICS : mmHg:RA (m) : 20; RV (s/d) : 56/15; PA (s/d, m) : 53/29, 38; PCWP (m) : 35 with large V waves; AO (s/d, m) : 150/82, 108; LV (s/d) : 148/21; LVEDP : 43
Estimated Leidy Cardiac Output: 5.2 L / min and Cardiac Index: 2.4 L/ min / m-2; Systemic vascular resistance: 16.9 Wood units or 1354 vntiz-nsh-jm(-5); Pulmonary vascular resistance: 0.6 Wood units or 46 aejua-tae-cj(-5)
LM: NL. LAD patent. Circumflex: Patent. RCA: Patent L VG 60% with no regional wall motion abnormalities
Right heart cath 08/07/2024:Hemodynamics (mmHg): RA (m) : 18; RV (s/d,m) : 49/21; PA (s/d, m) : 50/29; PCWP (m) : 26; PA saturation: 58.7% on room air; AO saturation: 96.0% on room air; RA saturation: 57.2% on room air; Cardiac Output : 5.1 L/min by
Leidy calculation; Cardiac Index : 2.3 L/min/m-2 by Leidy calculation; Systemic vascular resistance: 894 dsc^(-5; Pulmonary vascular resistance: 2.54 tavares unit
Echo 03/26/2024: Technically difficult study, Definity used, EF 50 to 55%, mild concentric LVH, paradoxical septal motion consistent with left bundle branch block, mild MAC, mild MR, no significant change compared to prior
Echo Dec 12 2024: EF 62% with trivial pericardial effusion.
Plan:
-Presented 12/11/2024 with progressively worsening shortness of breath, weight gain, edema. Admitted with acute on chronic HF with preserved EF with 30 lb weight gain in 3 months despite up titration of outpatient diuretic.
Continue IV diuresis with 60 mg twice daily. If her diuresis slows, could consider increasing diuretic dosing +/- adding metolazone
Her creatinine remained stable.
She was encouraged to use Tubigrip's.
Peripheral ultrasound negative for DVT this admission.
Echo reviewed with patient, her EF remains preserved with trivial pericardial effusion.
Continue Toprol for history of recovered cardiomyopathy.
Previously taken off NATHAN inhibitor secondary to hypotension and renal insufficiency.
Could consider addition of SGLT2 inhibitor if cost not prohibitive, however patient compliance remains an issue.
Continue pulmonary toilet, history of significant COPD and possible restrictive lung disease.
Discussed with nursing.
HPI 12/12/2024:
Patient is a 54-year-old female with past medical history of chronic left bundle branch block, recovered nonischemic cardiomyopathy, hypertension, COPD, anxiety/depression who presented to [facility] ED 12/11/2024 after being seen in outpatient cardiology
office with worsening dyspnea on exertion, 30 lbs weight gain despite increasing outpatient diuretics after patient was found to have elevated right and left sided pressures on cardiac catheterization August and October 2024. On admission to ER chest
x-ray showed no acute cardiopulmonary abnormality with stable nodular opacities in bilateral upper lobes. proBNP of 213. Troponin was negative x 2. She was provided 40 mg IV Lasix in emergency department.
At time of this evaluation patient resting comfortably in bed on room air. Reports edema has improved overnight.
Progress Note - Impregnator Helper
Subjective
Date of Service: December 15, 2024
Patient seen and examined. No chest pain.
Objective
Labs:
12/15/24 08:40
12/15/24 08:40
Labs
Hgb 12.8 g/dL (12.0-16.0) 12/15/24 08:40
Hct 38.3 % (37.0-47.0) 12/15/24 08:40
Plt Count 264 10^3/uL (130-400) 12/15/24 08:40
Sodium 135 mmol/L (135-145) 12/15/24 08:40
Potassium 3.9 mmol/L (3.5-5.1) 12/15/24 08:40
BUN 28 mg/dl (7-17) H 12/15/24 08:40
Creatinine 0.9 mg/dL (0.6-1.0) 12/15/24 08:40
Glucose 114 mg/dl (70-99) H 12/15/24 08:40
Vital Signs and I&O:
Vital Signs
Temp Pulse Resp BP Pulse Ox
97.7 F 76 16 146/84 92
12/15/24 07:25 12/15/24 08:58 12/15/24 07:38 12/15/24 08:58 12/15/24 08:54
Vital Signs
Temp Pulse Resp BP Pulse Ox
97.7 F 76 16 146/84 92
12/15/24 07:25 12/15/24 08:58 12/15/24 07:38 12/15/24 08:58 12/15/24 08:54
Intake & Output
12/13/24 12/14/24 12/15/24 12/16/24
06:59 06:59 06:59 06:59
Intake Total 1200 / 1200 1440 / 1440 1800 / 1800
Output Total 1000 / 1000 650 / 650
Balance 200 / 200 790 / 790 1800 / 1800
Physical Exam
Physical Exam
General: No acute distress, AAOX3
Neck: Negative JVD
Heart: Regular, Negative S3 positive S1/S2, Negative S4, No murmur
Lungs: CTA b/l, negative wheezes/rales/rhonchi
Abd: Positive BS, NT/ND, neg rebound/rigidity/guarding
Ext: Negative cyanosis/clubbing. +1 bilateral edema
Neuro: nonfocal
[2024-12-15 11:09] VITALS: BP 135/86
[2024-12-15 15:20] VITALS: BP 130/76
--- NOTE | 2024-12-15 16:15 | PTCARENOTE ---
Pt AAO x3, OROZCO well; OOB in room/to BR; ines well, no c/o weakness/dizziness. VSS. telemetry:NSR. On room air- pulse ox 97%, pt denies SOB; has slight HAMMER. Abd obese, soft, ines :PO well. Voids in BR without difficulty; non-compliant with
monitoring output. Resting in bed at present, no c/o. Will continue to monitor.
[2024-12-15] MEDS: LOVENOX 40 MG SC (17:42)
--- NOTE | 2024-12-15 17:54 | CM ---
Funmilayo Downs from [facility] ([phone]) called for status of pt discharge. Unable to leave message. Will talk with her tomorrow. Pt continues with IV lasix twice a day. Will look into VN services for f/u to CHF admission
Plan: TBD. Will follow for DC needs.
[2024-12-15 19:00] VITALS: BP 111/80
[2024-12-15] MEDS: TYLENOL 650 MG PO (21:58)
[2024-12-15] MEDS: DESYREL 150 MG PO (21:58)
[2024-12-15] MEDS: ABILIFY 5 MG PO (21:58)
[2024-12-15 23:00] VITALS: BP 117/71
[2024-12-16] VITALS (8 sets, daily range): BP systolic 106–141; BP diastolic 60–86; BMI 39.0
[2024-12-16] MEDS: SPIRIVA RESPIMAT 2.5 MCG 2 PUFF INH (07:59)
[2024-12-16] MEDS: SYMBICORT 80/4.5 MCG INHALER 2 PUFF INH ×2 (07:59→19:45)
--- NOTE | 2024-12-16 09:32 | W.PN.HOSP.TC ---
Today's Communication/Plan
-
see AP
Assessment / Plan
Assessment / Plan
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
TTE 12/12/24
1. Left ventricular ejection fraction is normal with an ejection fraction of 62 % by Bazzi's biplane method of discs.
2. Mildly thickened. No mitral regurgitation.
3. Trivial pericardial effusion is noted.
A/P:
# Subacute on Chronic HFpEF
Cont IV Lasix 60mg BID - patient reports good urine output although weight not significantly decreasing
Follow I/Os, daily weights, etc.
repeat TTE results above
Cath done 10/16/24 with non-obstructive coronary disease and elevated filling pressures.
Peripheral ultrasound negative for DVT this admission
Cardiology input appreciated
# Benign Hypertension
IV diuresis as noted above.
Adjust med regimen / GDMT as BP tolerates.
# COPD without Acute Exacerbation
No wheezing on exam.
Continue Trelegy. Albuterol PRN.
# Bipolar Disorder
Stable. Continue current psychotropic medication regimen.
# Morbid Obesity due to excess calories, BMI 39
Affects all aspects of care.
Encourage healthy diet and increased activity with goal of weight loss.
DVT Prophylaxis: Lovenox
Code Status: Full
Anticipated Discharge: 24 - 48 hours
Subjective/Interval History
-
Date of Service: December 16, 2024
Objective Data
-
Labs:
Laboratory Results
12/16/24
08:28
Sodium Pending
Potassium Pending
Chloride Pending
Carbon Dioxide Pending
BUN Pending
Creatinine Pending
Glucose Pending
Calcium Pending
Vital Signs:
Vital Signs
Temp Pulse Resp BP Pulse Ox
36.7 C 83 16 141/86 95
12/16/24 07:10 12/16/24 08:02 12/16/24 08:02 12/16/24 07:10 12/16/24 08:02
I&O
12/15/24 12/16/24 12/17/24
06:59 06:59 06:59
Intake Total 1800 / 1800 1080 / 1080
Balance 1800 / 1800 1080 / 1080
Review of Systems
-
History Source: Patient
All other systems: Reviewed and negative
Respiratory: Denies Trouble Breathing
Physical Exam
-
General: Well Developed, Well Nourished, No Apparent Distress, Comfortable and Conversant
HEENT: Normocephalic, Atraumatic and Moist Mucous Membranes
Respiratory: Clear to Auscultation and Non Labored Respirations; Negative Wheezes, Rales, Crackles or Accessory Resp Muscle Use
Cardiac: Regular Rhythm and S1/S2
GI: Soft, Nontender and Nondistended
Musculoskeletal: Edema, Right Lower Extrem (much improved ) and Edema, Left Lower Extrem (much improved )
Skin: Warm and Dry
Neuro: Awake, Alert and Oriented
Psych: Calm and Intact Judgement/Insight
Data Reviewed
-
Labs: Labs Reviewed by me
[2024-12-16] MEDS: TOPROL XL 12.5 MG PO (10:48)
[2024-12-16] MEDS: WELLBUTRIN SR (12 hour sustained release) 150 MG PO (10:49)
[2024-12-16] MEDS: ATIVAN 0.5 MG PO ×2 (10:51→22:19)
[2024-12-16 11:01] LABS: Blood Urea Nitrogen 31 mg/dl (7-17); Calcium 9.5 mg/dl (8.4-10.2); Carbon Dioxide 23 mmol/L (22-30); Chloride 97 mmol/L (98-107); Estimated Creatinine Clearance 95 ml/min; Glucose 103 mg/dl (70-99); Magnesium 2.2 mg/dl (1.6-2.3); Potassium 4.3 mmol/L (3.5-5.1); Sodium 132 mmol/L (135-145); eGFR > 60.00
[2024-12-16] MEDS: LASIX 60 MG IV ×2 (11:11→16:15)
--- NOTE | 2024-12-16 11:13 | W.PN.CARDCBS ---
Addendum entered and electronically signed by Sima Stark PA-C 12/16/24 12:46:
Per case management Marybeth $0 copay. Will start 10 mg daily
Addendum entered and electronically signed by Nik Rudd MD 12/16/24 12:27:
I saw and examined the patient.
The OIL CHANGER or PA's note was reviewed and I agree with the note.
Comment: General: Well developed, well nourished in NAD.
Neck: Supple, no JVD, HJR, carotids +2 B/L, no bruits bilaterally.
Heart: Non displaced PMI, RRR, no murmurs, No S3, S4, no rubs.
Lungs: Scattered rhonchi
Extremities: No clubbing, cyanosis or edema bilaterally.
Neuro: Grossly nonfocal, awake, alert and oriented x3.
Diuresis has plateaued. Will try metolazone before increasing Lasix dose. Replete potassium.
Original Note:
Today's Communication / Plan
-
Give metolazone 2.5 mg 30 minutes prior to afternoon Lasix
Replete potassium 20 mEq with afternoon Lasix
BMP and mag in a.m.
Impression / Plan
-
.
PCP: Angeli Gunn
Primary Citizenship Instructor: Dr. Dumont
Impression:
Presented 12/11/2024 with progressively worsening shortness of breath, weight gain
Acute on chronic heart failure with preserved ejection fraction
Recovered nonischemic cardiomyopathy
Chronic heart failure with preserved ejection fraction
Chronic left bundle branch block
Hypertension
Severe COPD with possible restrictive lung disease
Lung nodules
Anxiety/depression
History of migraines
History of alcohol abuse
Former smoker
Right and left heart catheterization 10/16/2024: HEMODYNAMICS : mmHg:RA (m) : 20; RV (s/d) : 56/15; PA (s/d, m) : 53/29, 38; PCWP (m) : 35 with large V waves; AO (s/d, m) : 150/82, 108; LV (s/d) : 148/21; LVEDP : 43
Estimated Leidy Cardiac Output: 5.2 L / min and Cardiac Index: 2.4 L/ min / m-2; Systemic vascular resistance: 16.9 Wood units or 1354 iflct-rhv-gb(-5); Pulmonary vascular resistance: 0.6 Wood units or 46 qqtbb-gdm-kt(-5)
LM: NL. LAD patent. Circumflex: Patent. RCA: Patent L VG 60% with no regional wall motion abnormalities
Right heart cath 08/07/2024:Hemodynamics (mmHg): RA (m) : 18; RV (s/d,m) : 49/21; PA (s/d, m) : 50/29; PCWP (m) : 26; PA saturation: 58.7% on room air; AO saturation: 96.0% on room air; RA saturation: 57.2% on room air; Cardiac Output : 5.1 L/min by
Leidy calculation; Cardiac Index : 2.3 L/min/m-2 by Leidy calculation; Systemic vascular resistance: 894 dsc^(-5; Pulmonary vascular resistance: 2.54 tavares unit
Echo 03/26/2024: Technically difficult study, Definity used, EF 50 to 55%, mild concentric LVH, paradoxical septal motion consistent with left bundle branch block, mild MAC, mild MR, no significant change compared to prior
Echo Sept 2024: EF 62% with trivial pericardial effusion.
Plan:
-Presented 12/11/2024 with progressively worsening shortness of breath, weight gain, edema. Admitted with acute on chronic HF with preserved EF with 30 lb weight gain in 3 months despite up titration of outpatient diuretic.
Ongoing IV diuresis with 60 mg twice daily. Slow response to ongoing IV diuresis, has only lost 3 lbs so far. Weight remains 16 pounds higher than previous discharge weight in August 2024. Will give metolazone 2.5 mg 30 minutes prior to afternoon
Lasix. May need to consider Lasix 80 mg IV BID but patient has had hypotension in the past on higher doses.
Will give potassium 40 meq with afternoon Lasix
Her creatinine remained stable.
She was encouraged to use Tubigrip's.
Peripheral ultrasound negative for DVT this admission.
Echo reviewed with patient, her EF remains preserved with trivial pericardial effusion.
Continue Toprol for history of recovered cardiomyopathy.
Previously taken off NATHAN inhibitor secondary to hypotension and renal insufficiency.
Could consider addition of SGLT2 inhibitor if cost not prohibitive, however patient compliance remains an issue. Will consult case management for cost analysis
Continue pulmonary toilet, history of significant COPD and possible restrictive lung disease.
Discussed with nursing, hospitalist
HPI 12/12/2024:
Patient is a 54-year-old female with past medical history of chronic left bundle branch block, recovered nonischemic cardiomyopathy, hypertension, COPD, anxiety/depression who presented to [facility] ED 12/11/2024 after being seen in outpatient cardiology
office with worsening dyspnea on exertion, 30 lbs weight gain despite increasing outpatient diuretics after patient was found to have elevated right and left sided pressures on cardiac catheterization August and October 2024. On admission to ER chest
x-ray showed no acute cardiopulmonary abnormality with stable nodular opacities in bilateral upper lobes. proBNP of 213. Troponin was negative x 2. She was provided 40 mg IV Lasix in emergency department.
At time of this evaluation patient resting comfortably in bed on room air. Reports edema has improved overnight.
Progress Note - Citizenship Instructor
Subjective
Date of Service: December 16, 2024
Patient seen and examined. Patient sitting on edge of bed reports she is feeling less short of breath but still not at baseline. Feels abdominal bloating and legs are still tight and heavy.
Objective
Labs:
12/15/24 08:40
12/16/24 08:28
Labs
Hgb 12.8 g/dL (12.0-16.0) 12/15/24 08:40
Hct 38.3 % (37.0-47.0) 12/15/24 08:40
Plt Count 264 10^3/uL (130-400) 12/15/24 08:40
Sodium 132 mmol/L (135-145) L 12/16/24 08:28
Potassium 4.3 mmol/L (3.5-5.1) 12/16/24 08:28
BUN 31 mg/dl (7-17) H 12/16/24 08:28
Creatinine 0.9 mg/dL (0.6-1.0) 12/16/24 08:28
Glucose 103 mg/dl (70-99) H 12/16/24 08:28
Vital Signs and I&O:
Vital Signs
Temp Pulse Resp BP Pulse Ox
98.0 F 80 16 141/69 95
12/16/24 07:10 12/16/24 10:48 12/16/24 08:02 12/16/24 10:48 12/16/24 08:02
Vital Signs
Temp Pulse Resp BP Pulse Ox
98.0 F 80 16 141/69 95
12/16/24 07:10 12/16/24 10:48 12/16/24 08:02 12/16/24 10:48 12/16/24 08:02
Intake & Output
12/14/24 12/15/24 12/16/24 12/17/24
06:59 06:59 06:59 06:59
Intake Total 1440 / 1440 1800 / 1800 1080 / 1080
Output Total 650 / 650
Balance 790 / 790 1800 / 1800 1080 / 1080
Physical Exam
Physical Exam
GEN: No distress, awake, Ox3, sitting on side of bed
HEENT: supple, anicteric, mmm
LUNGS: Mildly diminished otherwise CTA, no wheezes/rales
CV: Reg, S1/S2, no murmur, rub or gallop
ABD: Mild distention/firm, BS+, NT
EXT: +1-2 bilateral lower extremity edema, skin changes consistent with chronic venous stasis
NEURO: Gross non-focal
SKIN: No rash, warm, dry, pink
--- NOTE | 2024-12-16 12:11 | CM ---
CM consulted for pricing for Jardiance and Farxiga 10 mg each
CM called patient's insurance, verified that both medications are covered w/ a $0 co pay for a 30 day supply. Insurance does not cover 90 day mail order.
Updated ordering physician
[2024-12-16] MEDS: KCL 20 MEQ PO (13:54)
[2024-12-16] MEDS: FARXIGA 10 MG PO (13:54)
[2024-12-16] MEDS: ZAROXOLYN 2.5 MG PO (15:40)
[2024-12-16] MEDS: LOVENOX 40 MG SC (16:25)
[2024-12-16] MEDS: DESYREL 150 MG PO (22:19)
[2024-12-16] MEDS: TYLENOL 650 MG PO (22:19)
[2024-12-16] MEDS: ABILIFY 5 MG PO (22:19)
[2024-12-17 03:35] VITALS: BP 130/71
[2024-12-17 06:00] VITALS: BMI 38.7
[2024-12-17 07:15] VITALS: BP 120/74
[2024-12-17] MEDS: SYMBICORT 80/4.5 MCG INHALER 2 PUFF INH ×2 (07:59→19:37)
[2024-12-17] MEDS: SPIRIVA RESPIMAT 2.5 MCG 2 PUFF INH (07:59)
[2024-12-17] MEDS: WELLBUTRIN SR (12 hour sustained release) 150 MG PO (08:41)
[2024-12-17] MEDS: FARXIGA 10 MG PO (08:41)
[2024-12-17] MEDS: TOPROL XL 12.5 MG PO (08:41)
[2024-12-17] MEDS: LASIX 60 MG IV (08:42)
--- NOTE | 2024-12-17 08:45 | W.PN.CARDCBS ---
Today's Communication / Plan
-
Increase lasix to 80 mg IV BID
Cont Metolazone
Impression / Plan
-
.
PCP: Angeli Gunn
Primary Research Director: Dr. Dumont
Impression:
Presented 12/11/2024 with progressively worsening shortness of breath, weight gain
Acute on chronic heart failure with preserved ejection fraction
Recovered nonischemic cardiomyopathy
Chronic heart failure with preserved ejection fraction
Chronic left bundle branch block
Hypertension
Severe COPD with possible restrictive lung disease
Lung nodules
Anxiety/depression
History of migraines
History of alcohol abuse
Former smoker
Right and left heart catheterization 10/16/2024: HEMODYNAMICS : mmHg:RA (m) : 20; RV (s/d) : 56/15; PA (s/d, m) : 53/29, 38; PCWP (m) : 35 with large V waves; AO (s/d, m) : 150/82, 108; LV (s/d) : 148/21; LVEDP : 43
Estimated Leidy Cardiac Output: 5.2 L / min and Cardiac Index: 2.4 L/ min / m-2; Systemic vascular resistance: 16.9 Wood units or 1354 qytrg-pjb-lp(-5); Pulmonary vascular resistance: 0.6 Wood units or 46 iubte-gwt-fa(-5)
LM: NL. LAD patent. Circumflex: Patent. RCA: Patent L VG 60% with no regional wall motion abnormalities
Right heart cath 08/07/2024:Hemodynamics (mmHg): RA (m) : 18; RV (s/d,m) : 49/21; PA (s/d, m) : 50/29; PCWP (m) : 26; PA saturation: 58.7% on room air; AO saturation: 96.0% on room air; RA saturation: 57.2% on room air; Cardiac Output : 5.1 L/min by
Leidy calculation; Cardiac Index : 2.3 L/min/m-2 by Leidy calculation; Systemic vascular resistance: 894 dsc^(-5; Pulmonary vascular resistance: 2.54 tavares unit
Echo 03/26/2024: Technically difficult study, Definity used, EF 50 to 55%, mild concentric LVH, paradoxical septal motion consistent with left bundle branch block, mild MAC, mild MR, no significant change compared to prior
Echo Sept 2024: EF 62% with trivial pericardial effusion.
Plan:
-Presented 12/11/2024 with progressively worsening shortness of breath, weight gain, edema. Admitted with acute on chronic HF with preserved EF with 30 lb weight gain in 3 months despite up titration of outpatient diuretic.
Continue with IV diuresis but will increase to 80 mg IV BID.
Continue Metolazone 2.5 mg 30 min prior to afternoon lasix.
Potassium repleted by Sima CARTAGENA with 40 meq PM Sept 12/16.
She is 9 lbs down from her office wt last week. Her dry wt may still be lower. She states she was 20 lbs up since October 2024.
Her creatinine remains stable.
She was encouraged to use Tubigrip's.
Peripheral ultrasound negative for DVT this admission.
Echo reviewed with patient, her EF remains preserved with trivial pericardial effusion.
Continue Toprol for history of recovered cardiomyopathy.
Previously taken off NATHAN inhibitor secondary to hypotension and renal insufficiency.
Could consider addition of SGLT2 inhibitor if cost not prohibitive, however patient compliance remains an issue. Will consult case management for cost analysis
Continue pulmonary toilet, history of significant COPD and possible restrictive lung disease.
Discussed with nursing, hospitalist
HPI 12/12/2024:
Patient is a 54-year-old female with past medical history of chronic left bundle branch block, recovered nonischemic cardiomyopathy, hypertension, COPD, anxiety/depression who presented to [facility] ED 12/11/2024 after being seen in outpatient cardiology
office with worsening dyspnea on exertion, 30 lbs weight gain despite increasing outpatient diuretics after patient was found to have elevated right and left sided pressures on cardiac catheterization August and October 2024. On admission to ER chest
x-ray showed no acute cardiopulmonary abnormality with stable nodular opacities in bilateral upper lobes. proBNP of 213. Troponin was negative x 2. She was provided 40 mg IV Lasix in emergency department.
At time of this evaluation patient resting comfortably in bed on room air. Reports edema has improved overnight.
Progress Note - Research Director
Subjective
Date of Service: December 17, 2024
Pt seen and examined. Breathing better. No cp.
Objective
Labs:
12/15/24 08:40
Labs
Hgb 12.8 g/dL (12.0-16.0) 12/15/24 08:40
Hct 38.3 % (37.0-47.0) 12/15/24 08:40
Plt Count 264 10^3/uL (130-400) 12/15/24 08:40
Sodium 132 mmol/L (135-145) L 12/16/24 08:28
Potassium 4.3 mmol/L (3.5-5.1) 12/16/24 08:28
BUN 31 mg/dl (7-17) H 12/16/24 08:28
Creatinine 0.9 mg/dL (0.6-1.0) 12/16/24 08:28
Glucose 103 mg/dl (70-99) H 12/16/24 08:28
Vital Signs and I&O:
Vital Signs
Temp Pulse Resp BP Pulse Ox
97.4 F 79 16 120/74 95
12/17/24 07:15 12/17/24 08:04 12/17/24 08:04 12/17/24 07:15 12/17/24 08:04
Vital Signs
Temp Pulse Resp BP Pulse Ox
97.4 F 79 16 120/74 95
12/17/24 07:15 12/17/24 08:04 12/17/24 08:04 12/17/24 07:15 12/17/24 08:04
Intake & Output
12/15/24 12/16/24 12/17/24 12/18/24
06:59 06:59 06:59 06:59
Intake Total 1800 / 1800 1080 / 1080 1620 / 1620
Output Total 1949
Balance 1800 / 1800 1080 / 1080 -330 / -330
Physical Exam
Physical Exam
General: No acute distress, AAOX3
Neck: Negative JVD
Heart: Regular, Negative S3 positive S1/S2, Negative S4, No murmur
Lungs: CTA b/l, negative wheezes/rales/rhonchi
Abd: Positive BS, NT/ND, neg rebound/rigidity/guarding
Ext: Negative cyanosis/clubbing. + 1 b/l edema
Neuro: nonfocal
[2024-12-17] MEDS: TYLENOL 650 MG PO ×2 (08:55→21:07)
[2024-12-17] MEDS: ATIVAN 0.5 MG PO ×2 (08:56→21:07)
--- NOTE | 2024-12-17 09:58 | CM ---
Addendum entered by Lucia Nagy 12/17/24 10:04:
Davonanamika requested call to confirm date of discharge and fax of discharge summary to [phone].
Addendum entered by Lucia Nagy 12/17/24 10:02:
Patient confirmed that she see's the therapist from [facility] every 2 weeks and she confirmed that CM could speak with Funmilayo Downs from [facility] ([phone]). CM will attempt to call with update.
Original Note:
Physician and CM met with patient at bedside on . Patient confirmed plan to return home when medically appropriate and stated that she has no need for supports at this time. CM will continue to follow for discharge planning needs.
Plan; home with no needs anticipated at this time.
[2024-12-17 10:15] LABS: Blood Urea Nitrogen 39 mg/dl (7-17); Calcium 9.4 mg/dl (8.4-10.2); Carbon Dioxide 38 mmol/L (22-30); Chloride 89 mmol/L (98-107); Estimated Creatinine Clearance 71 ml/min; Glucose 109 mg/dl (70-99); Magnesium 2.1 mg/dl (1.6-2.3); Potassium 3.5 mmol/L (3.5-5.1); Sodium 135 mmol/L (135-145); eGFR 53.46
--- NOTE | 2024-12-17 10:20 | W.PN.HOSP.TC ---
Today's Communication/Plan
-
cont increased lasix dosing
Assessment / Plan
Assessment / Plan
pt is a 54 year old female
Subacute on Chronic HFpEF--Cont IV Lasix, increased to 80 mg IV BID- patient reports good urine output although weight not significantly decreasing--apprec cards--daily weights, I/Os--Peripheral ultrasound negative for DVT this admission
Essential Hypertension--cont IV diuresis
COPD without Acute Exacerbation--No wheezing on exam--Continue Trelegy. Albuterol PRN.
Bipolar Disorder--Continue current psychotropic medication regimen.
Morbid Obesity due to excess calories, BMI 39--Affects all aspects of care--Encourage healthy diet and increased activity with goal of weight loss.
DVT Proph--Lovenox
Code Status-- Full
Anticipated Discharge: 24 - 48 hours
Subjective/Interval History
-
Date of Service: December 17, 2024
pt still says she is SOB
Objective Data
-
Labs:
Laboratory Results
12/17/24
08:12
Sodium 135
Potassium 3.5
Chloride 89 L
Carbon Dioxide 38 H
BUN 39 H
Creatinine 1.2 H
Glucose 109 H
Calcium 9.4
Vital Signs:
max temp for 24 hours
12/16/24
23:37
Temp 97.8 F
Vital Signs
Temp Pulse Resp BP Pulse Ox
97.4 F 77 16 120/74 95
12/17/24 07:15 12/17/24 08:41 12/17/24 08:04 12/17/24 08:41 12/17/24 08:04
I&O
12/16/24 12/17/24 12/18/24
06:59 06:59 06:59
Intake Total 1080 / 1079 1620 / 1620
Output Total 1949
Balance 1080 / 1080 -330 / -330
Review of Systems
-
All other systems: Reviewed and negative
Respiratory: Reports Trouble Breathing
Physical Exam
-
General: Well Developed, Well Nourished and No Apparent Distress
HEENT: Normocephalic and Atraumatic; Negative Oxygen
Respiratory: Clear to Auscultation; Negative Wheezes or Rhonchi
Cardiac: Regular Rhythm and S1/S2; Negative Murmur
GI: Soft, Nontender, Nondistended and Normal Bowel Sounds
Musculoskeletal: No Clubbing, No Cyanosis, No Edema and Other (chronic venous stasis changes)
Neuro: Awake
Psych: Calm
[2024-12-17] MEDS: KCL 40 MEQ PO (10:50)
[2024-12-17 11:15] VITALS: BP 118/73
[2024-12-17 15:15] VITALS: BP 114/67
[2024-12-17] MEDS: LASIX 80 MG IV (16:23)
[2024-12-17] MEDS: LOVENOX 40 MG SC (18:18)
[2024-12-17 19:17] VITALS: BP 117/70
[2024-12-17] MEDS: ABILIFY 5 MG PO (21:03)
[2024-12-17] MEDS: DESYREL 150 MG PO (21:05)
[2024-12-17 23:38] VITALS: BP 125/81
[2024-12-18 03:31] VITALS: BP 107/66
[2024-12-18 06:00] VITALS: BMI 38.2
[2024-12-18 07:49] VITALS: BP 119/80
[2024-12-18] MEDS: SPIRIVA RESPIMAT 2.5 MCG 2 PUFF INH (07:54)
[2024-12-18] MEDS: SYMBICORT 80/4.5 MCG INHALER 2 PUFF INH ×2 (07:54→20:11)
[2024-12-18 08:15] LABS: Hematocrit 38.4 % (37.0-47.0); Hemoglobin 12.8 g/dL (12.0-16.0); Mean Corp Hgb Conc. 33.3 g/dL (33.0-37.0); Mean Corpuscular Volume 99.5 fL (81.0-99.0); Platelet Count 256 10^3/uL (130-400); Red Cell Dist. Width 12.8 % (11.5-14.5)
[2024-12-18 08:46] LABS: ALT (SGPT) 34 U/L (0-35); AST (SGOT) 41 U/L (14-36); Albumin 4.5 g/dl (3.5-5.0); Alkaline Phosphatase 75 U/L (38-126); Blood Urea Nitrogen 44 mg/dl (7-17); Calcium 9.5 mg/dl (8.4-10.2); Carbon Dioxide 39 mmol/L (22-30); Chloride 86 mmol/L (98-107); Estimated Creatinine Clearance 70 ml/min; Glucose 117 mg/dl (70-99); Magnesium 2.1 mg/dl (1.6-2.3); Potassium 3.3 mmol/L (3.5-5.1); Sodium 133 mmol/L (135-145); Total Protein 7.4 g/dl (6.3-8.2); eGFR 53.46
[2024-12-18] MEDS: TOPROL XL 12.5 MG PO (09:10)
[2024-12-18] MEDS: WELLBUTRIN SR (12 hour sustained release) 150 MG PO (09:10)
[2024-12-18] MEDS: FARXIGA 10 MG PO (09:10)
[2024-12-18] MEDS: TYLENOL 650 MG PO ×2 (09:15→21:11)
[2024-12-18] MEDS: ATIVAN 0.5 MG PO ×2 (09:16→21:12)
[2024-12-18] MEDS: KCL 40 MEQ PO ×2 (09:41→11:53)
[2024-12-18] MEDS: LASIX 80 MG IV ×2 (09:42→16:01)
--- NOTE | 2024-12-18 10:08 | W.PN.CARDCBS ---
Addendum entered and electronically signed by Fadi Dumont DO 12/18/24 15:56:
I saw and examined the patient.
The Rigging Loft Mechanic's note was reviewed and I agree with the note.
Comment:
Plan:
Cont IV diuresis with 80 mg IV BID, wt continues to come down
Cr overall stable, cont to monitor
Likely transition to oral lasix next 24 hrs.
If remains symptomatic and cr rises would then consider RHC.
Pt was appreciative
Reviewed with primary service and nursing.
Original Note:
Today's Communication / Plan
-
Continue Lasix 80 mg IV BID plus a dose of metolazone 2.5 mg with this afternoon's dose
Pending response to diuresis can consider another RHC in a.m. to assess volume status, volume status can be difficult in this patient and she has required RHC in the past
Impression / Plan
-
PCP: Angeli Gunn [facility] residency program
Primary Commissioning Manager: Dr. Dumont
Impression:
Presented 12/11/2024 with progressively worsening shortness of breath, weight gain
Acute on chronic heart failure with preserved ejection fraction
Recovered nonischemic cardiomyopathy
Chronic heart failure with preserved ejection fraction
Chronic left bundle branch block
Hypertension
Severe COPD with possible restrictive lung disease
Lung nodules
Anxiety/depression
History of migraines
History of alcohol abuse
Former smoker
Right and left heart catheterization 10/16/2024: HEMODYNAMICS : mmHg:RA (m) : 20; RV (s/d) : 56/15; PA (s/d, m) : 53/29, 38; PCWP (m) : 35 with large V waves; AO (s/d, m) : 150/82, 108; LV (s/d) : 148/21; LVEDP : 43
Estimated Leidy Cardiac Output: 5.2 L / min and Cardiac Index: 2.4 L/ min / m-2; Systemic vascular resistance: 16.9 Wood units or 1354 [id number]-[id number](-5); Pulmonary vascular resistance: 0.6 Wood units or 46 qehio-gua-ik(-5)
LM: NL. LAD patent. Circumflex: Patent. RCA: Patent L VG 60% with no regional wall motion abnormalities
Right heart cath 08/07/2024:Hemodynamics (mmHg): RA (m) : 18; RV (s/d,m) : 49/21; PA (s/d, m) : 50/29; PCWP (m) : 26; PA saturation: 58.7% on room air; AO saturation: 96.0% on room air; RA saturation: 57.2% on room air; Cardiac Output : 5.1 L/min by
Leidy calculation; Cardiac Index : 2.3 L/min/m-2 by Leidy calculation; Systemic vascular resistance: 894 dsc^(-5; Pulmonary vascular resistance: 2.54 tavares unit
Echo 03/26/2024: Technically difficult study, Definity used, EF 50 to 55%, mild concentric LVH, paradoxical septal motion consistent with left bundle branch block, mild MAC, mild MR, no significant change compared to prior
Echo 12/12/24: EF 62% with trivial pericardial effusion.
Plan:
-Presented 12/11/2024 with progressively worsening shortness of breath, weight gain, edema. Admitted with acute on chronic HF with preserved EF with 30 lb weight gain in 3 months despite up titration of outpatient diuretic.
-Weight is down 8 lbs with Lasix 80 mg IV BID diuresis. Patient was given a single dose of metolazone 2.5 mg once on 12/16/2024 and has lost 5 lbs since then. We will try another dose of metolazone on 12/18/2024 with the afternoon dose of Lasix.
-Patient feels that edema is better, but breathing is not back to baseline. Cre up to 1.2 on labs 12/17/2024 and 12/18/2024 as reviewed by me. Patient has required RHC for volume assessment in the past. Pending response to second dose of metolazone
on 12/18/2024 and labs on 12/19/2024 can consider another C
-KCl ordered by hospitalist attending, additional order for 12/18/2024 PM ordered by me and will check BMP and magnesium level in a.m. also ordered by me.
-Patient was taking Lasix 40 mg PO BID prior to admission we discussed increasing her outpatient dose to Lasix 80 mg a.m. and 40 mg p.m. daily and using metolazone PRN
-Echo this admission reviewed and then summarized above by me shows preserved EF at 62%, EF was previously as low as 41% by echo in 2020
-Outpatient dose of Toprol-XL 12.5 mg daily has been continued
-Patient is not chronically on NATHAN/ARB/aldosterone antagonist due to to hypotension and KITA when these medications have been attempted in the past
-Patient is tolerating Farxiga 10 mg daily, that was added this admission and patient has a $0 co-pay, thanks to for checking cost
HPI 12/12/2024:
Patient is a 54-year-old female with past medical history of chronic left bundle branch block, recovered nonischemic cardiomyopathy, hypertension, COPD, anxiety/depression who presented to [facility] ED 12/11/2024 after being seen in outpatient cardiology
office with worsening dyspnea on exertion, 30 lbs weight gain despite increasing outpatient diuretics after patient was found to have elevated right and left sided pressures on cardiac catheterization August and October 2024. On admission to ER chest
x-ray showed no acute cardiopulmonary abnormality with stable nodular opacities in bilateral upper lobes. proBNP of 213. Troponin was negative x 2. She was provided 40 mg IV Lasix in emergency department.
At time of this evaluation patient resting comfortably in bed on room air. Reports edema has improved overnight.
Progress Note - Commissioning Manager
Subjective
Date of Service: December 18, 2024
She feels less swollen, but still SOB
Objective
Labs:
12/18/24 07:28
12/18/24 07:28
Labs
Hgb 12.8 g/dL (12.0-16.0) 12/18/24 07:28
Hct 38.4 % (37.0-47.0) 12/18/24 07:28
Plt Count 256 10^3/uL (130-400) 12/18/24 07:28
Sodium 133 mmol/L (135-145) L 12/18/24 07:28
Potassium 3.3 mmol/L (3.5-5.1) L 12/18/24 07:28
BUN 44 mg/dl (7-17) H 12/18/24 07:28
Creatinine 1.2 mg/dL (0.6-1.0) H 12/18/24 07:28
Glucose 117 mg/dl (70-99) H 12/18/24 07:28
Vital Signs and I&O:
Vital Signs
Temp Pulse Resp BP Pulse Ox
98.6 F 75 16 119/80 91
12/18/24 07:49 12/18/24 09:10 12/18/24 07:59 12/18/24 09:10 12/18/24 07:59
Vital Signs
Temp Pulse Resp BP Pulse Ox
98.6 F 75 16 119/80 91
12/18/24 07:49 12/18/24 09:10 12/18/24 07:59 12/18/24 09:10 12/18/24 07:59
Intake & Output
12/16/24 12/17/24 12/18/24 12/19/24
06:59 06:59 06:59 06:59
Intake Total 1080 / 1080 1620 / 1620 660 / 660
Output Total 1950 / 1950 2100 / 3050 950 / 950
Balance 1080 / 1080 -330 / -330 -1440 / -2390 -950 / -950
Physical Exam
Physical Exam
GEN: NAD. AAO x3
LUNGS: RA. No audible wheeze
CV: SR on tele. Reg
EXT: +2 B/L LE edema
--- NOTE | 2024-12-18 11:15 | W.PN.HOSP.TC ---
Today's Communication/Plan
-
d/c
Assessment / Plan
Assessment / Plan
pt is a 54 year old female
Subacute on Chronic HFpEF--Cont IV Lasix, increased to 80 mg IV BID, cleared for d/c by cards, await diuretic dose--apprec cards--daily weights, I/Os--Peripheral ultrasound negative for DVT this admission
Essential Hypertension--cont IV diuresis
COPD without Acute Exacerbation--No wheezing on exam--Continue Trelegy. Albuterol PRN.
Bipolar Disorder--Continue current psychotropic medication regimen.
Morbid Obesity due to excess calories, BMI 39--Affects all aspects of care--Encourage healthy diet and increased activity with goal of weight loss.
DVT Proph--Lovenox
Code Status-- Full
Anticipated Discharge: Today
Subjective/Interval History
-
Date of Service: December 18, 2024
pt without c/o
Objective Data
-
Labs:
Laboratory Results
12/18/24
07:28
WBC 7.1
Hgb 12.8
Hct 38.4
Plt Count 256
Sodium 133 L
Potassium 3.3 L
Chloride 86 L
Carbon Dioxide 39 H
BUN 44 H
Creatinine 1.2 H
Glucose 117 H
Calcium 9.5
Total Bilirubin 0.6
AST 41 H
ALT 34
Alkaline Phosphatase 75
Vital Signs:
max temp for 24 hours
12/11/24
17:42 12/17/24
23:38 12/18/24
06:00
Temp 98.3 F
Actual Weight 122 kg 114.078 kg
Vital Signs
Temp Pulse Resp BP Pulse Ox
98.6 F 75 16 119/80 91
12/18/24 07:49 12/18/24 09:10 12/18/24 07:59 12/18/24 09:10 12/18/24 07:59
I&O
12/17/24 12/18/24 12/19/24
06:59 06:59 06:59
Intake Total 1620 / 1620 660 / 660
Output Total 1950 / 1950 2100 / 3050 950 / 950
Balance -330 / -330 -1440 / -2390 -950 / -950
Review of Systems
-
All other systems: Reviewed and negative
Physical Exam
-
General: Well Developed, Well Nourished and No Apparent Distress
HEENT: Normocephalic and Atraumatic; Negative Oxygen
Respiratory: Clear to Auscultation; Negative Wheezes or Rhonchi
Cardiac: Regular Rhythm and S1/S2; Negative Murmur
GI: Soft, Nontender, Nondistended and Normal Bowel Sounds
Musculoskeletal: No Clubbing, No Cyanosis and No Edema
Neuro: Awake
--- NOTE | 2024-12-18 11:15 | CM ---
Addendum entered by Lucia Nagy 12/18/24 11:27:
Patient clarified that she goes to the residency clinic but is not able to pronounce the name. update provided to physician.
Original Note:
Patient seen at bedside on with physician. Patient plan is for discharge home with follow up with Jesse MINAYA; Funmilayo requested call to confirm date of discharge and fax of discharge summary to [phone]. Patient is working on transportation
home and requested script from physician for work. CM obtained script and placed in chart. CM will continue to follow for discharge planning needs.
Plan; home with follow up with Jesse.
[2024-12-18 11:39] VITALS: BP 114/83
[2024-12-18] MEDS: ZAROXOLYN 2.5 MG PO (15:30)
[2024-12-18 15:54] VITALS: BP 116/78
[2024-12-18] MEDS: LOVENOX 40 MG SC (17:03)
[2024-12-18] MEDS: MIRALAX 17 GRAMS PO (17:03)
[2024-12-18 19:30] VITALS: BP 108/74
[2024-12-18] MEDS: FLUSH (NSS) 1 FLUSH IV (20:58)
[2024-12-18] MEDS: KCL 20 MEQ PO (21:00)
[2024-12-18] MEDS: DESYREL 150 MG PO (21:00)
[2024-12-18] MEDS: ABILIFY 5 MG PO (21:00)
[2024-12-18 23:23] VITALS: BP 113/64
[2024-12-19 03:15] VITALS: BP 111/63
[2024-12-19 06:00] VITALS: BMI 38.0
[2024-12-19 07:10] VITALS: BP 109/78
[2024-12-19] MEDS: SPIRIVA RESPIMAT 2.5 MCG 2 PUFF INH (07:15)
[2024-12-19] MEDS: SYMBICORT 80/4.5 MCG INHALER 2 PUFF INH (07:16)
[2024-12-19] MEDS: MIRALAX 17 GRAMS PO (08:21)
[2024-12-19] MEDS: LASIX 80 MG IV (08:22)
[2024-12-19] MEDS: FLUSH (NSS) 2 FLUSH IV (08:22)
[2024-12-19] MEDS: WELLBUTRIN SR (12 hour sustained release) 150 MG PO (08:23)
[2024-12-19] MEDS: TOPROL XL 12.5 MG PO (08:23)
[2024-12-19] MEDS: FARXIGA 10 MG PO (08:23)
[2024-12-19] MEDS: ATIVAN 0.5 MG PO (08:34)
[2024-12-19] MEDS: TYLENOL 650 MG PO (08:39)
--- NOTE | 2024-12-19 09:31 | W.PN.CARDCBS ---
Addendum entered and electronically signed by Heike Agarwal DO 12/19/24 18:43:
I saw and examined the patient.
The Cnc Milling Machinist's note was reviewed and I agree with the note.
Comment: Patient seen and examined. Overall improved volume status and symptoms since I initially saw her on admission. Plan for discharge home today
GEN: NAD, RA
HEENT: mmm
LUNGS: Mildly diminished otherwise CTA,
CV: Reg, S1/S2, no murmur
ABD: Mild distention/firm, BS+, NT
EXT: Trace to +1, skin changes consistent with chronic venous stasis
Plan:
Volume overload with acute on chronic heart failure with preserved ejection fraction likely secondary to dietary indiscretions
- Improved with IV Lasix diuresis and doses of metolazone
- Will transition patient to Lasix 80 mg a.m. and 40 mg p.m. Likely will use metolazone 2.5 mg once weekly
- Close monitoring of basic metabolic profile and electrolytes
-Outpatient dose of Toprol-XL 12.5 mg daily has been continued
-Patient is tolerating Farxiga 10 mg daily, that was added this admission and patient has a $0 co-pay, thanks to for checking cost
-Patient is not chronically on NATHAN/ARB/aldosterone antagonist due to to hypotension and KITA when these medications have been attempted in the past
-Low-salt cardiac healthy diet and heart failure monitoring reviewed
Outpatient cardiac follow-up arranged
Agree with plan for discharge
Original Note:
Today's Communication / Plan
-
Basic metabolic panel pending
Keep K greater than 4
If creatinine remains stable consider right heart cath otherwise would discharge home on Lasix 80 mg in a.m., 40 mg in p.m. with metolazone 2.5 mg once weekly
Impression / Plan
-
PCP: Angeli Gunn [facility] residency program
Primary Typewriter Ribbon Winder: Dr. Dumont
Impression:
Presented 12/11/2024 with progressively worsening shortness of breath, weight gain
Acute on chronic heart failure with preserved ejection fraction
Recovered nonischemic cardiomyopathy
Chronic heart failure with preserved ejection fraction
Chronic left bundle branch block
Hypertension
Severe COPD with possible restrictive lung disease
Lung nodules
Anxiety/depression
History of migraines
History of alcohol abuse
Former smoker
Right and left heart catheterization 10/16/2024: HEMODYNAMICS : mmHg:RA (m) : 20; RV (s/d) : 56/15; PA (s/d, m) : 53/29, 38; PCWP (m) : 35 with large V waves; AO (s/d, m) : 150/82, 108; LV (s/d) : 148/21; LVEDP : 43
Estimated Leidy Cardiac Output: 5.2 L / min and Cardiac Index: 2.4 L/ min / m-2; Systemic vascular resistance: 16.9 Wood units or 1354 ibfee-emz-he(-5); Pulmonary vascular resistance: 0.6 Wood units or 46 fucnt-nqa-in(-5)
LM: NL. LAD patent. Circumflex: Patent. RCA: Patent L VG 60% with no regional wall motion abnormalities
Right heart cath 08/07/2024:Hemodynamics (mmHg): RA (m) : 18; RV (s/d,m) : 49/21; PA (s/d, m) : 50/29; PCWP (m) : 26; PA saturation: 58.7% on room air; AO saturation: 96.0% on room air; RA saturation: 57.2% on room air; Cardiac Output : 5.1 L/min by
Leidy calculation; Cardiac Index : 2.3 L/min/m-2 by Leidy calculation; Systemic vascular resistance: 894 dsc^(-5; Pulmonary vascular resistance: 2.54 tavares unit
Echo 03/26/2024: Technically difficult study, Definity used, EF 50 to 55%, mild concentric LVH, paradoxical septal motion consistent with left bundle branch block, mild MAC, mild MR, no significant change compared to prior
Echo 12/12/24: EF 62% with trivial pericardial effusion.
Plan:
-Presented 12/11/2024 with progressively worsening shortness of breath, weight gain, edema. Admitted with acute on chronic HF with preserved EF with 30 lb weight gain in 3 months despite up titration of outpatient diuretic.
-Weight is down 9 lbs with Lasix 80 mg IV BID diuresis. Patient was given a dose of metolazone 2.5 mg 12/16/2024 and 12/18/2024. Lost 1 lb overnight and 9 lbs since admission.
-Patient feeling better. Edema significantly improved but still has some dyspnea on exertion but she has severe underlying COPD which may be partially responsible. Cre up to 1.2 on labs 12/18/2024 and repeat labs pending. Patient's volume status
has been difficult to assess in past and previously in has required RHC August 2024 for volume assessment in the past. Await results of labs.
-Patient has required potassium repletion throughout admission. BMP pending. If K less than 4 would replete
-Patient was taking Lasix 40 mg PO BID prior to admission we discussed increasing her outpatient dose to Lasix 80 mg a.m. and 40 mg p.m. daily and using metolazone 2.5 mg PRN, likely once a week.
-Echo this admission reviewed and then summarized above by me shows preserved EF at 62%, EF was previously as low as 41% by echo in 2020
-Outpatient dose of Toprol-XL 12.5 mg daily has been continued
-Patient is tolerating Farxiga 10 mg daily, that was added this admission and patient has a $0 co-pay, thanks to for checking cost
-Patient is not chronically on NATHAN/ARB/aldosterone antagonist due to to hypotension and KITA when these medications have been attempted in the past
HPI 12/12/2024:
Patient is a 54-year-old female with past medical history of chronic left bundle branch block, recovered nonischemic cardiomyopathy, hypertension, COPD, anxiety/depression who presented to [facility] ED 12/11/2024 after being seen in outpatient cardiology
office with worsening dyspnea on exertion, 30 lbs weight gain despite increasing outpatient diuretics after patient was found to have elevated right and left sided pressures on cardiac catheterization August and October 2024. On admission to ER chest
x-ray showed no acute cardiopulmonary abnormality with stable nodular opacities in bilateral upper lobes. proBNP of 213. Troponin was negative x 2. She was provided 40 mg IV Lasix in emergency department.
At time of this evaluation patient resting comfortably in bed on room air. Reports edema has improved overnight.
Progress Note - Typewriter Ribbon Winder
Subjective
Date of Service: December 19, 2024
Patient seen and examined. Feeling better with improved edema but still notes dyspnea on exertion. Reports she is feeling well enough that she would like to go home
Objective
Labs:
12/18/24 07:28
Labs
Hgb 12.8 g/dL (12.0-16.0) 12/18/24 07:28
Hct 38.4 % (37.0-47.0) 12/18/24 07:28
Plt Count 256 10^3/uL (130-400) 12/18/24 07:28
Sodium 133 mmol/L (135-145) L 12/18/24 07:28
Potassium 3.3 mmol/L (3.5-5.1) L 12/18/24 07:28
BUN 44 mg/dl (7-17) H 12/18/24 07:28
Creatinine 1.2 mg/dL (0.6-1.0) H 12/18/24 07:28
Glucose 117 mg/dl (70-99) H 12/18/24 07:28
Vital Signs and I&O:
Vital Signs
Temp Pulse Resp BP Pulse Ox
97.4 F 87 16 109/78 93
12/19/24 07:10 12/19/24 08:23 12/19/24 07:19 12/19/24 08:23 12/19/24 07:19
Vital Signs
Temp Pulse Resp BP Pulse Ox
97.4 F 87 16 109/78 93
12/19/24 07:10 12/19/24 08:23 12/19/24 07:19 12/19/24 08:23 12/19/24 07:19
Intake & Output
12/17/24 12/18/24 12/19/24 12/20/24
06:59 06:59 06:59 06:59
Intake Total 1620 / 1620 660 / 660 720 / 720
Output Total 1950 / 1950 2100 / 3050 1999 / 1999
Balance -330 / -330 -1440 / -2390 -1280 / -1280
Physical Exam
Physical Exam
GEN: No distress, awake, Ox3, lying in bed
HEENT: supple, anicteric, mmm
LUNGS: Mildly diminished otherwise CTA, no wheezes/rales
CV: Reg, S1/S2, no murmur, rub or gallop
ABD: Mild distention/firm, BS+, NT
EXT: Trace to +1, skin changes consistent with chronic venous stasis
NEURO: Gross non-focal
SKIN: No rash, warm, dry, pink
[2024-12-19 10:32] LABS: Blood Urea Nitrogen 50 mg/dl (7-17); Calcium 9.6 mg/dl (8.4-10.2); Carbon Dioxide 39 mmol/L (22-30); Chloride 85 mmol/L (98-107); Estimated Creatinine Clearance 70 ml/min; Glucose 152 mg/dl (70-99); Magnesium 2.1 mg/dl (1.6-2.3); Potassium 3.4 mmol/L (3.5-5.1); Sodium 133 mmol/L (135-145); eGFR 53.46
[2024-12-19 11:10] VITALS: BP 109/58
[2024-12-19 15:10] VITALS: BP 108/72
--- NOTE | 2024-12-19 15:32 | W.PN.HOSP.TC ---
Today's Communication/Plan
-
d/c
Assessment / Plan
Assessment / Plan
pt is a 54 year old female
Subacute on Chronic HFpEF--Cont PO Lasix, 80mg AM, 40 mg PM, metolazone 2.5mg weekly-- cleared for d/c by cards--daily weights, I/Os--Peripheral ultrasound negative for DVT this admission
Essential Hypertension--meds asa able
COPD without Acute Exacerbation--No wheezing on exam--Continue Trelegy. Albuterol PRN.
Bipolar Disorder--Continue current psychotropic medication regimen.
Morbid Obesity due to excess calories, BMI 39--Affects all aspects of care--Encourage healthy diet and increased activity with goal of weight loss.
DVT Proph--Lovenox
Code Status-- Full
Anticipated Discharge: Today
Subjective/Interval History
-
Date of Service: December 19, 2024
pt ready for d/c--no right heart cath per cards
Objective Data
-
Labs:
Laboratory Results
12/19/24
09:37
Sodium 133 L
Potassium 3.4 L
Chloride 85 L
Carbon Dioxide 39 H
BUN 50 H
Creatinine 1.2 H
Glucose 152 H
Calcium 9.6
Vital Signs:
max temp for 24 hours
12/19/24
11:10
Temp 97.6 F
Vital Signs
Temp Pulse Resp BP Pulse Ox
97.6 F 73 16 109/58 95
12/19/24 11:10 12/19/24 11:10 12/19/24 11:10 12/19/24 11:10 12/19/24 11:10
I&O
12/18/24 12/19/24 12/20/24
06:59 06:59 06:59
Intake Total 660 / 660 720 / 720
Output Total 2100 / 3050 2000 / 2000
Balance -1440 / -2390 -1280 / -1280
Review of Systems
-
All other systems: Reviewed and negative
Physical Exam
-
General: Well Developed, Well Nourished and No Apparent Distress
HEENT: Normocephalic and Atraumatic; Negative Oxygen
Respiratory: Clear to Auscultation; Negative Wheezes or Rhonchi
Cardiac: Regular Rhythm and S1/S2; Negative Murmur
GI: Soft, Nontender, Nondistended and Normal Bowel Sounds
Musculoskeletal: No Clubbing, No Cyanosis and No Edema
Neuro: Awake
Psych: Calm
--- NOTE | 2024-12-19 15:49 | CM ---
Patient seen at bedside on with physician. Patient plan is for discharge home with follow up with Jesse MINAYA; Funmilayo requested call to confirm date of discharge and fax of discharge summary to [phone]. Patient script for work was updated
by physician and tubed to unit. Patient plan to call [employer] for transportation home. CM will continue to follow for discharge planning needs.
Plan; discharge home with [facility] to follow and cardiology as outpatient.
--- NOTE | 2024-12-20 11:49 | W.DCSUMMARY ---
Discharge Summary
Discharge Data
Date of Admission: 12/11/24
Date of Discharge: 12/19/24
-
Pending Results: No
Hospital Course
Primary care physician : Angeli Vitale
Principal Discharge diagnosis : Subacute on chronic heart failure with preserved ejection fraction exacerbation
Chronic Discharge diagnosis : Essential hypertension, chronic obstructive pulmonary disease without acute exacerbation, bipolar disorder, morbid obesity
Hospital Course : Patient is a 54-year-old female who presented complaining of dyspnea with activity and persistent weight gain. 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
past several visits. She stated that she has had orthopnea and dyspnea without activity for the last few months. She does take Lasix 40 mg twice daily and after an office visit on October 08 she increased her to Lasix 60 mg twice daily. Patient was
admitted.
Problem #1: Subacute on chronic heart failure with preserved ejection fraction exacerbation. Patient did have a peripheral vascular ultrasound which was negative for deep venous thrombosis. She was admitted and seen in consultation by cardiology.
IV Lasix was given for diuresis. Daily weights and I's and O's were checked. Patient has been cleared for discharge by cardiology with the recommendation of 80 mg of Lasix in the morning, 40 mg in the evening, and metolazone 2.5 mg weekly. She
should follow-up with cardiology as scheduled. Patient's weight decreased from 122 kg on admission down to 113.4 kg on the day of discharge. This equates to 18.9 pounds of weight loss since admission.
Problem #2: All other medical issues. These include Essential hypertension, chronic obstructive pulmonary disease without acute exacerbation, bipolar disorder, morbid obesity. These medical issues were stable during her hospitalization.
Medications were continued as able.
Patient is stable for discharge home at this time. If there are any questions regarding this dictation or her hospital stay, please not hesitate to call. Our office number is [phone].
Time for discharge 35 minutes.
Important imaging findings :
ECHO SUMMARY
1. Left ventricular ejection fraction is normal with an ejection fraction of 62 % by Bazzi's biplane method of discs.
2. Mildly thickened. No mitral regurgitation.
3. Trivial pericardial effusion is noted.
Discharge Plan
-
Patient Disposition: Home (Routine Discharge)
Discharge Diagnosis/Procedures: Subacute on chronic congestive heart failure with preserved ejection fraction exacerbation, essential hypertension, chronic obstructive pulmonary disease without exacerbation, bipolar disorder, morbid obesity
Condition: Good
Diet: 2 Gram Sodium
Additional Diets: restrict fluids to 1500 mls (50 oz) daily
Activity: As tolerated
Driving Restrictions: As prior to admission
Bathing Restrictions: None
Specialty Instructions: Weigh Daily- Call MD for wt gain/loss 3 lbs overnight/5 lbs in 1 week
Referrals:
Angeli Gunn MD, Resident [Family Practice Resident Year3, General] - in less than 1 week
Prescriptions:
New
dapagliflozin propanediol 10 mg Tablet
10 mg PO DAILY Qty: 30 0RF
furosemide 80 mg tablet
80 mg PO DAILY Qty: 30 0RF
furosemide [Lasix] 40 mg tablet
40 mg PO QPM Qty: 30 0RF
Rx Instructions:
take at 4 PM
metolazone 2.5 mg tablet
2.5 mg PO WEEKLY Qty: 30 0RF
Rx Instructions:
take on Mondays
Continued
bupropion HCl 150 MG tablet sustained-release 12 hr
150 mg PO DAILY
trazodone 150 mg tablet
150 mg PO HS
sumatriptan succinate 6 mg/0.5 mL Solution
6 mg SC DAILYPRN PRN (Reason: migraine)
albuterol sulfate 90 mcg/actuation Hfa Aerosol Inhaler
2 puff INHALATION R Q6HPRN PRN (Reason: sob)
aripiprazole 5 mg Tablet
5 mg PO HS
lorazepam 0.5 mg tablet
0.5 mg PO HS PRN (Reason: Sleep)
metoprolol succinate 25 mg tablet extended release 24 hr
12.5 mg PO DAILY
Trelegy Ellipta 100-62.5-25 mcg blister with device
1 inh INHALATION DAILY
Discontinued
furosemide 40 mg tablet
40 mg PO BID
Discharge Orders:
Discharge Patient (As Directed); Ordered 12/19/24
Ordered By: Simran Strickland
Discharge Date and Time
Discharge Date/Time: 12/19/24 17:07
Print Language: LATVIAN
== END 2024-12-19 17:07 | disposition home or self-care (01) | DRG 291 ==
LOC: 4 EAST ACU 20:18
PROVIDERS: Internal Medicine; Physician Assistant Medical; Student in an Organized Health Care Education/Training Program; ADMITTING PHYSICIAN Hospitalist; ATTENDING PHYSICIAN Internal Medicine; EMERGENCY PHYSICIAN Emergency Medicine; OTHER PHYSICIAN Internal Medicine Cardiovascular Disease
DX: I11.0 Hypertensive heart disease with heart failure (principal); I50.33 Acute on chronic diastolic (congestive) heart failure; F31.30 Bipolar disorder, current episode depressed, mild or moderate severity, unspecified; E66.2 Morbid (severe) obesity with alveolar hypoventilation; Z68.41 Body mass index [BMI] 40.0-44.9, adult; G43.909 Migraine, unspecified, not intractable, without status migrainosus; G47.33 Obstructive sleep apnea (adult) (pediatric); I42.8 Other cardiomyopathies; I25.10 Atherosclerotic heart disease of native coronary artery without angina pectoris; F41.9 Anxiety disorder, unspecified; I44.7 Left bundle-branch block, unspecified; J44.9 Chronic obstructive pulmonary disease, unspecified; F17.290 Nicotine dependence, other tobacco product, uncomplicated
CPT/HCPCS: 71046; 80048; 80053; 80061; 83036; 83735; 83880; 84443; 84484; 85025; 85027; 93005; 93306; 93970; 94640; 96374; 99285